=== PATIENT | female | born 1950 | race Caucasian/White ===

== ENCOUNTER → 2017-11-19 13:50 | Outpatient (CLI) | payer MEDICARE, SELFPAY ==
[2017-11-19 17:08] LABS: Thyroid Stimulating Hormone 3.45 uIU/mL (0.47-4.68)
== END ==
PROVIDERS: PCP Physician Assistant; Visit Provider Nurse Practitioner
DX: E03.9 Hypothyroidism, unspecified (principal)
CPT/HCPCS: 36415; 84443

== ENCOUNTER → 2017-11-25 12:30 | Outpatient (CLI) | payer MEDICARE, SELFPAY ==
--- NOTE | 2017-11-25 | DI.MG.S_ITS ---
BILATERAL DIGITAL SCREENING MAMMOGRAM 3D/2D WITH CAD: 11/25/2017 CLINICAL: Routine screening. Comparison is made to exams dated: 10/15/2016 mammogram, 10/05/2015 mammogram, and 09/01/2014 mammogram - [facility]. The tissue of both breasts is extremely dense, which lowers the sensitivity of mammography. Current study was also evaluated with a Computer Aided Detection (CAD) system. No significant masses, calcifications, or other findings are seen in either breast. There has been no significant interval change. IMPRESSION: NEGATIVE There is no mammographic evidence of malignancy. A 1 year screening mammogram is recommended. This exam was interpreted at Station ID: [id number]. NOTE: For mammograms, a report in lay terms will be sent to the patient. Approximately 15% of breast malignancies will not be visualized mammographically. In the management of a palpable breast mass, a negative mammogram must not discourage biopsy of a clinically suspicious lesion. Electronically Signed By: Stephanie aldridge/yaritza:11/25/2017 15:20:14 letter sent: Normal Exam ACR BI-RADS Category 1: Negative 3341F
== END ==
PROVIDERS: PCP Physician Assistant; Visit Provider Physician Assistant
DX: Z12.31 Encounter for screening mammogram for malignant neoplasm of breast (principal)
CPT/HCPCS: 77063; 77067

== ENCOUNTER → 2017-12-26 13:45 | Outpatient (CLI) | payer MEDICARE, SELFPAY ==
[2017-12-26 15:04] LABS: BUN Creatinine Ratio 25.6 (6-22); Blood Urea Nitrogen 23 mg/dL (7-17); Estimated Glomerular Filt Rate > 60.0 mL/min (>60)
== END ==
PROVIDERS: PCP Physician Assistant; Visit Provider Physician Assistant
DX: D31.31 Benign neoplasm of right choroid (principal); Z51.81 Encounter for therapeutic drug level monitoring
CPT/HCPCS: 36415; 82565; 84520

== ENCOUNTER → 2017-12-30 11:58 | Outpatient (CLI) | payer MEDICARE, SELFPAY ==
[2017-12-30 12:14] LABS: BUN Creatinine Ratio 25.6 (6-22); Blood Urea Nitrogen 23 mg/dL (7-17); Estimated Glomerular Filt Rate > 60.0 mL/min (>60)
[2017-12-30 12:23] LABS: Alanine Aminotransferase 28 IU/L (9-52); Albumin 4.2 g/dL (3.5-5.0); Albumin Globulin Ratio 1.3 (1.0-2.8); Alkaline Phosphatase 95 U/L (38-126); Aspartate Aminotransferase 23 IU/L (14-36); Bilirubin Total 0.5 mg/dL (0.2-1.3); Calcium 9.3 mg/dL (8.4-10.2); Carbon Dioxide 30 mmol/L (22-32); Chloride 101 mmol/L (98-107); Globulin 3.3 g/dL (1.7-4.1); Glucose 97 mg/dL (80-110); HEMOLYSIS < 15 (0-50); Potassium 4.3 mmol/L (3.4-5.1); Sodium 144 mmol/L (137-145); Total Protein 7.5 g/dL (6.3-8.2)
== END ==
PROVIDERS: PCP Physician Assistant; Visit Provider Physician Assistant
DX: D31.31 Benign neoplasm of right choroid (principal); Z01.818 Encounter for other preprocedural examination
CPT/HCPCS: 36415; 80053

== ENCOUNTER → 2018-01-02 09:07 | Outpatient (CLI) | payer MEDICARE, SELFPAY ==
--- NOTE | 2018-01-02 09:29 | DI.CT.S_ITS ---
PROCEDURE: CT CHEST ABD PEL W CON INDICATIONS: BENIGN NEOPLASM OF RIGHT CHOROID TECHNIQUE: After the administration of oral and intravenous contrast, 5 mm thick sections acquired from the lung apices to the symphysis. 5 mm coronal and sagittal reformats were performed, with additional 7 mm coronal MIP reformats through the lungs. For radiation dose reduction, the following was used: automated exposure control, adjustment of mA and/or kV according to patient size. COMPARISON: None. FINDINGS: Image quality: Excellent. CHEST: Lungs and pleura: No acute airspace opacities. No pleural effusions or pneumothorax. Central and peripheral airways appear patent and normal in caliber. Mediastinum: Heart size is normal. No pericardial effusion. No mediastinal or hilar adenopathy by size criteria. Thoracic aorta and central pulmonary arteries are normal in size. Esophagus is normal in caliber. No hiatal hernia. Chest wall: No axillary or supraclavicular adenopathy by size criteria. Thyroid gland appears normal where well visualized. ABDOMEN: Solid organs: Liver is normal in size and enhancement. Note is made of a 1.9 cm hypodense structure within the middle third of the right posterior hepatic segment medially, dorsal to the right portal vein, having CT findings suggestive of but not diagnostic of hemangioma as the likely underlying cause Gallbladder appears normal. Biliary system is non dilated. Pancreas enhances normally. Spleen is normal in size and enhancement. No adrenal nodules. Kidneys demonstrate normal size and enhancement, without hydronephrosis. Multiple peripelvic cysts are seen at the left kidney. Peritoneum and bowel: Bowel loops demonstrate normal wall thickness and caliber. No free fluid or air. Nodes and vessels: No retroperitoneal or mesenteric adenopathy by size criteria. Aorta and inferior vena cava are normal in size. Miscellaneous: No ventral hernias. PELVIS: Genitourinary: Bladder wall thickness is normal. Prior hysterectomy. Miscellaneous: No inguinal hernias or adenopathy. Bones: No suspicious bony lesions. No vertebral body compression fractures. IMPRESSION: 1. Through the chest no abnormality is seen. Next 2. Within the abdomen the liver contains a 1.9 cm hypodensity that does not represent a cyst, and by appearance likely represents a hemangioma. Followup targeted single organ ultrasound directed to this area of the right posterior hepatic segment is recommended to determine whether sonographic findings are indicative of hemangioma being present at that site. 3. Multiple peripelvic cysts of the left kidney, mildly distorting the renal hilar structures. Secondary hydronephrosis may be present, superimposed. Renal cortical thinning is not associated. Followup with ultrasound during evaluation of the liver is recommended to establish baseline for followup if necessary. Dictated by: Master Dunn M.D. on 01/02/2018 at 10:09 Approved by: Master Dunn M.D. on 01/02/2018 at 10:16
== END ==
PROVIDERS: PCP Physician Assistant; Visit Provider Physician Assistant
DX: D36.7 Benign neoplasm of other specified sites (principal); N28.1 Cyst of kidney, acquired
CPT/HCPCS: 71260; 74177; Q9967

== ENCOUNTER → 2018-01-07 07:39 | Outpatient (CLI) | payer MEDICARE, SELFPAY ==
--- NOTE | 2018-01-07 07:41 | DI.US.S_ITS ---
PROCEDURE: US ABDOMEN COMPLETE INDICATIONS: LIVER MASS, ABNORMAL LEFT KIDNEY ON CT TECHNIQUE: Real-time scanning was performed of the abdominal and retroperitoneal organs, with image documentation. COMPARISON: [facility], CT, CT CHEST ABD PEL W CON, 01/02/2018, 9:16. FINDINGS: Liver: Liver is normal in size and homogeneous in echotexture except for presence of a 1.6 x 1.1 x 1.5 cm hyperechoic focus within the right posterior hepatic segment, with increased through transmission, consistent with hemangioma as was suspected by CT scanning 01/02/18. Gallbladder: Appears normal. Biliary ducts: Intrahepatic bile ducts are non-dilated. Extrahepatic bile duct caliber measures 5.1 mm. Normal is 6-7 mm or less in diameter, or 10 mm or less post-cholecystectomy. Pancreas: Visualized portions of the pancreas are sonographically normal. Spleen: Spleen is normal in size and homogeneous in echotexture. Kidneys: Kidneys are normal in size and echotexture. Right kidney measures 10.2 cm long; left kidney measures 9.5 cm long. No hydronephrosis on the right or nephrolithiasis on the left but there does appear to be moderate hydronephrosis on the left in addition to several peripelvic cysts. No solid masses. Aorta: Visualized aorta is normal in caliber at less than 3 cm. Iliacs: Proximal common iliac arteries are normal in caliber at less than 2.5 cm. IVC: Intrahepatic inferior vena cava is patent. Miscellaneous: No free abdominal fluid. IMPRESSION: 1.6 cm maximal dimension hemangioma right posterior hepatic segment which correlates with the CT scanning performed 01/02/18. Moderate hydronephrosis on the left, without hydroureter visualized, in addition to peripelvic cysts seen by CT scanning. The peripelvic cysts may explain the hydronephrosis, impinging on the collecting system. Followup ultrasound in 3 months is recommended to assess for interval exchange engineer time. 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 Dictated by: Master Dunn M.D. on 01/07/2018 at 8:39 Approved by: Master Dunn M.D. on 01/07/2018 at 8:45
== END ==
PROVIDERS: PCP Physician Assistant; Visit Provider Physician Assistant
DX: D18.03 Hemangioma of intra-abdominal structures (principal); N13.30 Unspecified hydronephrosis
CPT/HCPCS: 76700

== ENCOUNTER → 2018-03-10 09:17 | Outpatient (CLI) | payer MEDICARE, SELFPAY ==
--- NOTE | 2018-03-10 | DI.NM.S_ITS ---
PROCEDURE: NM RENAL FUNCTION W LASIX RADIOPHARMACEUTICAL: 10.8 mCi Tc-99m MAG3 IV and 40 mg furosemide IV. INDICATIONS: HYDRONEPHROSIS TECHNIQUE: The patient was hydrated orally before the examination was begun. After intravenous administration of Tc-99m MAG3, posterior abdominal radionuclide angiogram and sequential (1 minute each frame) renal images were obtained. A time-activity curve for each kidney was generated and analyzed. To evaluate for obstruction, the patient was given 40 mg furosemide via slow intravenous injection after the start of the examination. Sequential images were obtained for up to an additional 20 minutes. COMPARISON: [facility], CT, CT CHEST ABD PEL W CON, 01/02/2018, 9:16. [facility], US, US ABDOMEN COMPLETE, 01/07/2018, 7:47. FINDINGS: Perfusion: There is normal vascular flow to both kidneys. Morphology: Both kidneys are normal in size and shape. No dilated collecting systems are seen. Left extrarenal pelvis is noted. The ureters and bladder fill with tracer, and appear normal. Function: Both kidneys demonstrate normal cortical tracer uptake, with [id number] activity ranging from 3 to 5 minutes. The right kidney contributes 47 % of total renal function. The left kidney contributes 53 % of total renal function. Lasix stimulation: After diuretic administration, there is prompt clearance of tracer activity from the renal collecting systems in both kidneys. The half-time of emptying of tracer activity from the right pelvicaliceal system is 7.3 minutes. The half-time of emptying from the left pelvicaliceal system is 7.0 minutes. Normal emptying half-times are less than 10 minutes; borderline ranges are from 10 to 20 minutes. IMPRESSION: 1. Normal Lasix renogram. 2. No evidence of hydronephrosis. Dictated by: Elva Angela MD, PhD on 03/10/2018 at 11:00 Approved by: Elva Angela MD, PhD on 03/10/2018 at 11:05
== END ==
PROVIDERS: PCP Physician Assistant; Visit Provider Specialist
DX: N13.30 Unspecified hydronephrosis (principal)
CPT/HCPCS: 78708; A9562

== ENCOUNTER → 2018-12-02 08:10 | Outpatient (CLI) | payer MEDICARE, SELFPAY ==
--- NOTE | 2018-12-02 | DI.MG.S_ITS ---
BILATERAL DIGITAL SCREENING MAMMOGRAM 3D/2D WITH CAD: 12/02/2018 CLINICAL: Routine screening. Comparison is made to exams dated: 11/25/2017 mammogram, 10/15/2016 mammogram, and 10/05/2015 mammogram - [facility]. The tissue of both breasts is extremely dense, which lowers the sensitivity of mammography. Current study was also evaluated with a Computer Aided Detection (CAD) system. No significant masses, calcifications, or other findings are seen in either breast. There has been no significant interval change. IMPRESSION: NEGATIVE There is no mammographic evidence of malignancy. A 1 year screening mammogram is recommended. This exam was interpreted at Station ID: [id number]. NOTE: For mammograms, a report in lay terms will be sent to the patient. Approximately 15% of breast malignancies will not be visualized mammographically. In the management of a palpable breast mass, a negative mammogram must not discourage biopsy of a clinically suspicious lesion. Electronically Signed By: Mariano kirkpatrick/yaritza:12/02/2018 17:11:50 letter sent: Normal Exam ACR BI-RADS Category 1: Negative 3341F
== END ==
PROVIDERS: PCP Physician Assistant; Visit Provider Physician Assistant
DX: Z12.31 Encounter for screening mammogram for malignant neoplasm of breast (principal)
CPT/HCPCS: 77063; 77067

== ENCOUNTER → 2018-12-08 09:52 | Outpatient (CLI) | payer MEDICARE, SELFPAY ==
[2018-12-08 12:10] LABS: Alanine Aminotransferase 11 IU/L (9-52); Albumin 3.9 g/dL (3.5-5.0); Albumin Globulin Ratio 1.4 (1.0-2.8); Alkaline Phosphatase 95 U/L (38-126); Aspartate Aminotransferase 22 IU/L (14-36); BUN Creatinine Ratio 22.2 (6-22); Bilirubin Total 0.6 mg/dL (0.2-1.3); Blood Urea Nitrogen 20 mg/dL (7-17); Calcium 9.1 mg/dL (8.4-10.2); Carbon Dioxide 32 mmol/L (22-32); Chloride 102 mmol/L (98-107); Cholesterol 229 mg/dL (140-199); Estimated Glomerular Filt Rate > 60.0 mL/min (>60); Globulin 2.7 g/dL (1.7-4.1); Glucose 81 mg/dL (80-110); HDL Cholesterol 45 mg/dL (40-60); HEMOLYSIS < 15 (0-50); LDL Cholesterol Calculated 166 mg/dL (<100); Sodium 140 mmol/L (137-145); Total Protein 6.6 g/dL (6.3-8.2); Triglycerides 90 mg/dL (35-150)
[2018-12-08 12:32] LABS: Thyroid Stimulating Hormone 0.86 uIU/mL (0.47-4.68)
== END ==
PROVIDERS: PCP Physician Assistant; Visit Provider Physician Assistant
DX: E03.9 Hypothyroidism, unspecified (principal); E78.5 Hyperlipidemia, unspecified
CPT/HCPCS: 36415; 80053; 80061; 84443

== ENCOUNTER → 2019-01-05 13:30 | Outpatient (CLI) | payer MEDICARE, SELFPAY | PROVIDERS: PCP Physician Assistant; Visit Provider Physician Assistant | DX: M81.0 Age-related osteoporosis without current pathological fracture (principal); Z78.0 Asymptomatic menopausal state; E28.39 Other primary ovarian failure; Z82.62 Family history of osteoporosis; Z90.722 Acquired absence of ovaries, bilateral; Z87.891 Personal history of nicotine dependence | CPT/HCPCS: 77080 ==

== ENCOUNTER → 2019-01-07 09:11 | Outpatient (CLI) | payer MEDICARE, SELFPAY ==
[2019-01-07 10:42] LABS: Thyroid Stimulating Hormone 0.71 uIU/mL (0.47-4.68)
== END ==
PROVIDERS: PCP Physician Assistant; Visit Provider Nurse Practitioner
DX: E03.9 Hypothyroidism, unspecified (principal)
CPT/HCPCS: 36415; 84443

== ENCOUNTER → 2019-01-14 09:56 | Outpatient (CLI) | payer MEDICARE, SELFPAY ==
[2019-01-14 12:04] LABS: Vitamin D 25 Hydroxy (D3) 46.5 ng/mL (30.0-100.0)
== END ==
PROVIDERS: PCP Physician Assistant; Visit Provider Physician Assistant
DX: M54.6 Pain in thoracic spine (principal); M81.0 Age-related osteoporosis without current pathological fracture; R07.81 Pleurodynia
CPT/HCPCS: 36415; 82306

== ENCOUNTER → 2019-01-14 10:03 | Outpatient (CLI) | payer MEDICARE, SELFPAY ==
--- NOTE | 2019-01-14 10:08 | DI.RAD.S_ITS ---
PROCEDURE: XR THORACIC SPINE 3V INDICATIONS: Thoracic pain below bra line after deep stretching since Apr TECHNIQUE: 3 views of the thoracic spine were acquired. COMPARISON: [facility], CT, CT CHEST ABD PEL W CON, 01/02/2018, 9:16. FINDINGS: Bones: Mild mid thoracic compression fracture, possibly at the T9 level, although the exact spinal level is unclear. This is new since 12/03/17 although no more recent comparison studies Soft tissues: No paravertebral stripe thickening. IMPRESSION: Mild T9 compression fracture, new since 12/03/17 although no more recent relevant comparison studies therefore technically age-indeterminate. Please correlate clinically. If clinically warranted, further evaluation with MRI thoracic spine to assess for marrow edema could be performed. Dictated by: Cyril Chavez M.D. on 01/14/2019 at 12:56 Approved by: Cyril Chavez M.D. on 01/14/2019 at 12:59
--- NOTE | 2019-01-14 10:08 | DI.RAD.S_ITS ---
PROCEDURE: XR RIBS LT MIN 3V W CXR1V INDICATIONS: Thoracic pain below bra line after deep stretching since Apr TECHNIQUE: 2 views of the left ribs were acquired, along with a single view chest. COMPARISON: None. FINDINGS: Surgical changes and devices: None. Bones and chest wall: No fractures or dislocations. No suspicious bony lesions. Overlying soft tissues appear unremarkable. Lungs and pleura: No pleural effusions or pneumothorax. Lungs appear clear. Mediastinum: Mediastinal contours appear normal. Heart size is normal. IMPRESSION: No rib fracture. No acute disease. Dictated by: Cyril Chavez M.D. on 01/14/2019 at 12:55 Approved by: Cyril Chavez M.D. on 01/14/2019 at 12:56
== END ==
PROVIDERS: PCP Physician Assistant; Visit Provider Physician Assistant
DX: M54.6 Pain in thoracic spine (principal); M48.54XA Collapsed vertebra, not elsewhere classified, thoracic region, initial encounter for fracture; R07.81 Pleurodynia; M81.0 Age-related osteoporosis without current pathological fracture
CPT/HCPCS: 36415; 71101; 72072; 82306

== ENCOUNTER → 2019-01-15 06:42 | Outpatient (CLI) | payer MEDICARE, SELFPAY ==
--- NOTE | 2019-01-15 06:44 | DI.MRI.S_ITS ---
PROCEDURE: MR THORACIC SPINE WO CON INDICATIONS: Compression fx T9; Osteoporosis; pain not improving TECHNIQUE: Noncontrast sagittal T1 spine echo and T2 fast spin echo, sagittal STIR, axial T1 and T2 fast spin echo through the thoracic spine. COMPARISON: [facility], CT, CT CHEST ABD PEL W CON, 01/02/2018, 9:16. [facility], CR, XR THORACIC SPINE 3V, 01/14/2019, 10:18. FINDINGS: Image quality: Excellent. Alignment and Curvature: Mild dextroconvex scoliotic curvature is seen. Bone Marrow: Marrow is of normal overall signal. There is a subacute fracture seen involving the superior endplate of the T8 level (previously described at T9) with an associated Schmorl's node and 35% loss of height centrally. Mild increased T2-weighted/STIR signal can be seen at the superior aspect of this vertebral body level. No posterior displacement of fracture fragments can be seen. No additional fractures are seen. Spinal Cord: Visualized spinal cord is normal in size and signal. Paraspinous Soft Tissues: No paravertebral masses. Several perineural cysts (Tarlov's cysts) can be seen involving the exit foramina. Prominent left renal cysts are noted. Miscellaneous: On axial images, central canal and foramina appear widely patent at all scanned levels. IMPRESSION: 35% subacute compression deformity involving the superior endplate of T8 (previously described as T9). Incidental note is made of: Accentuated thoracic kyphosis Prominent left renal cysts Dictated by: Chandana Ugalde M.D. on 01/15/2019 at 10:18 Approved by: Chandana Ugalde M.D. on 01/15/2019 at 10:24
== END ==
PROVIDERS: PCP Physician Assistant; Visit Provider Physician Assistant
DX: M48.54XA Collapsed vertebra, not elsewhere classified, thoracic region, initial encounter for fracture (principal); M54.6 Pain in thoracic spine; M81.0 Age-related osteoporosis without current pathological fracture
CPT/HCPCS: 72146

== ENCOUNTER → 2019-03-24 09:17 | Outpatient (CLI) | payer MEDICARE, SELFPAY ==
[2019-03-28 02:49] LABS: Albumin 100 %; Protein/ Creatinine Ratio 98 mg/g creat (21-161); Total Urine Protein 17 mg/dL (5-24); Urine Creatinine, Random 173 mg/dL (20-275)
[2019-03-31 14:25] LABS: N-Telopeptide Serum 21.4 nM BCE (6.2-19.0)
[2019-04-05 20:51] LABS: Albumin 3.8 g/dL (3.8-4.8); Alpha 1 Globulin 0.2 g/dL (0.2-0.3); Alpha 2 Globulin 0.6 g/dL (0.5-0.9); Beta 1 Globulin 0.4 g/dL (0.4-0.6); Gamma Globulin 0.9 g/dL (0.8-1.7); Protein, Total 6.2 g/dL (6.1-8.1)
== END ==
PROVIDERS: PCP Physician Assistant; Visit Provider Internal Medicine Endocrinology, Diabetes & Metabolism
DX: M81.0 Age-related osteoporosis without current pathological fracture (principal)
CPT/HCPCS: 36415; 82523; 84155; 84156; 84165; 84166

== ENCOUNTER → 2019-05-07 09:29 | Outpatient (CLI) | payer MEDICARE, SELFPAY ==
[2019-05-07 10:34] LABS: Alanine Aminotransferase 14 IU/L (<35); Albumin 4.4 g/dL (3.5-5.0); Albumin Globulin Ratio 1.6 (1.0-2.8); Alkaline Phosphatase 96 U/L (38-126); Aspartate Aminotransferase 23 IU/L (14-36); BUN Creatinine Ratio 33.3 (6-22); Bilirubin Total 0.4 mg/dL (0.2-1.3); Blood Urea Nitrogen 30 mg/dL (7-17); Calcium 9.5 mg/dL (8.4-10.2); Carbon Dioxide 31 mmol/L (22-32); Chloride 103 mmol/L (98-107); Cholesterol 243 mg/dL (140-199); Estimated Glomerular Filt Rate > 60.0 mL/min (>60); Globulin 2.8 g/dL (1.7-4.1); Glucose 89 mg/dL (80-110); HDL Cholesterol 54 mg/dL (40-60); HEMOLYSIS < 15 (0-50); LDL Cholesterol Calculated 167 mg/dL (<100); Potassium 4.1 mmol/L (3.4-5.1); Sodium 140 mmol/L (137-145); Total Protein 7.2 g/dL (6.3-8.2); Triglycerides 110 mg/dL (35-150)
[2019-05-07 10:46] LABS: Vitamin D 25 Hydroxy (D3) 44.9 ng/mL (30.0-100.0)
[2019-05-11 16:40] LABS: Thyroid Peroxidase Antibodies 48 IU/mL (< 9)
== END ==
PROVIDERS: PCP Physician Assistant; Visit Provider Physician Assistant
DX: E78.5 Hyperlipidemia, unspecified (principal); E03.9 Hypothyroidism, unspecified; M81.0 Age-related osteoporosis without current pathological fracture
CPT/HCPCS: 36415; 80053; 80061; 82306; 84439; 84443; 84481; 86376

== ENCOUNTER → 2019-07-01 07:57 | Outpatient (CLI) | payer MEDICARE, SELFPAY ==
[2019-07-01 08:51] LABS: Alanine Aminotransferase 16 IU/L (<35); Albumin 4.3 g/dL (3.5-5.0); Albumin Globulin Ratio 1.5 (1.0-2.8); Alkaline Phosphatase 119 U/L (38-126); Aspartate Aminotransferase 32 IU/L (14-36); Bilirubin Total 0.5 mg/dL (0.2-1.3); Blood Urea Nitrogen 13 mg/dL (7-17); Calcium 9.3 mg/dL (8.4-10.2); Carbon Dioxide 26 mmol/L (22-32); Chloride 107 mmol/L (98-107); Cholesterol 254 mg/dL (140-199); Estimated Glomerular Filt Rate 54.7 mL/min (>60); Globulin 2.9 g/dL (1.7-4.1); Glucose 106 mg/dL (80-110); HDL Cholesterol 46 mg/dL (40-60); HEMOLYSIS < 15 (0-50); LDL Cholesterol Calculated 174 mg/dL (<100); Potassium 3.8 mmol/L (3.4-5.1); Sodium 139 mmol/L (137-145); Total Protein 7.2 g/dL (6.3-8.2); Triglycerides 170 mg/dL (35-150)
[2019-07-01 09:11] LABS: Free T4, Direct Thyroxine 1.55 ng/dL (0.78-2.19)
[2019-07-01 09:25] LABS: Thyroid Stimulating Hormone 5.57 uIU/mL (0.47-4.68)
[2019-07-03 15:53] LABS: Calcium 9.3 mg/dL (8.6-10.4); Parathyroid Hormone, Intact 69 pg/mL (14-64)
== END ==
PROVIDERS: PCP Physician Assistant; Visit Provider Physician Assistant
DX: E03.9 Hypothyroidism, unspecified (principal); E78.00 Pure hypercholesterolemia, unspecified; R79.89 Other specified abnormal findings of blood chemistry; R79.9 Abnormal finding of blood chemistry, unspecified; Z51.81 Encounter for therapeutic drug level monitoring; M48.54XA Collapsed vertebra, not elsewhere classified, thoracic region, initial encounter for fracture; M81.0 Age-related osteoporosis without current pathological fracture
CPT/HCPCS: 36415; 80053; 80061; 82310; 83970; 84439; 84443; 84481

== ENCOUNTER → 2019-07-21 14:40 | Outpatient (CLI) | payer MEDICARE, SELFPAY ==
--- NOTE | 2019-07-21 14:42 | DI.US.S_ITS ---
PROCEDURE: US ABDOMEN COMPLETE INDICATIONS: LUQ PAIN, BLOATING TECHNIQUE: Real-time scanning was performed of the abdominal and retroperitoneal organs, with image documentation. COMPARISON: [facility], US, US ABDOMEN COMPLETE, 01/07/2018, 7:47. FINDINGS: Liver: Liver is normal in size and homogeneous in echotexture except for presence of a hyperechoic right posterior hepatic segment hemangioma previously also seen by CT scanning in 2018. This measures up to 1.7 cm.. Gallbladder: The gallbladder appears normal Biliary ducts: Intrahepatic bile ducts are non-dilated. Extrahepatic bile duct caliber measures 4.8 mm. Normal is 6-7 mm or less in diameter, or 10 mm or less post-cholecystectomy. Pancreas: Visualized portions of the pancreas are sonographically normal. Spleen: Spleen is normal in size and homogeneous in echotexture. Kidneys: Kidneys are normal in size and echotexture. Right kidney measures 9.6 cm long; left kidney measures 9.2 cm long. No right-sided hydronephrosis or nephrolithiasis bilaterally, and there is moderate left-sided hydronephrosis that persists with bladder emptying.. No solid masses. Aorta: Visualized aorta is normal in caliber at less than 3 cm. Iliacs: Proximal common iliac arteries are normal in caliber at less than 2.5 cm. IVC: Intrahepatic inferior vena cava is patent. Miscellaneous: No free abdominal fluid. IMPRESSION: 1. Moderate hydronephrosis left kidney, chronically present. Left-sided renal cortical atrophy has not developed. 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 2. Previously present right posterior hepatic segment hemangioma again noted. Note: Urology consultation may be warranted given the history of a left-sided pain syndrome and the finding of chronic hydronephrosis on the left. Dictated by: Master Dunn M.D. on 07/21/2019 at 16:06 Approved by: Master Dunn M.D. on 07/21/2019 at 16:11
== END ==
PROVIDERS: PCP Physician Assistant; Visit Provider Physician Assistant
DX: R10.12 Left upper quadrant pain (principal); N13.30 Unspecified hydronephrosis; D18.09 Hemangioma of other sites; R14.0 Abdominal distension (gaseous); R68.81 Early satiety; R11.0 Nausea; R10.31 Right lower quadrant pain
CPT/HCPCS: 76700

== ENCOUNTER → 2019-07-29 07:58 | Outpatient (CLI) | payer MEDICARE, SELFPAY ==
--- NOTE | 2019-07-29 08:00 | DI.ECHO.S_ITS ---
[facility]---------+ [facility] +---------+ : : [address] : : : : [id number] : : : : Phone: [phone] Echocardiogram Report + + :Name: CHICO DELONG Study Date: 07/29/2019 Height: 66 in : :[facility] Weight: 160 lb : : Gender: Female BSA: 1.8 m2 : :: 1950 Age: 69 yrs BP: 114/76 mmHg: :Reason For Study: Dyspnea : :Ordering Physician: HALIE Mejias : :[place] Performed By: Artemio Wade : :Referring: CARLEY OROZCO : + + Interpretation Summary Normal sinus rhythm. Normal LV size, wall thickness, wall motion and LV systolic function. EF is 55-60%. There is mild left atrial enlargement. Otherwise patient has normal chamber sizes. 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 Mitral valve leaflets are normal with trace associated regurgitation. Aortic valve leaflets are mildly sclerotic with mild associated aortic regurgitation. No prior study available for comparison. Procedure: A two-dimensional transthoracic echocardiogram with color flow and Doppler was performed. The study quality was technically adequate. There is no prior echocardiogram noted for this patient. The patient was in normal sinus rhythm during the exam. Left Ventricle: The left ventricle is normal in size. There is normal left ventricular wall thickness. Left ventricular systolic function is normal. The ejection fraction is estimated to be 55-60%. Left ventricular wall motion is normal. Diastolic parameters suggest a relaxation abnormality of the left ventricle, consistent with probable normal filling pressures. Right Ventricle: The right ventricle is normal in size and function. Atria: The left atrium is mildly dilated. Right atrial size is normal. The interatrial septum is intact with no evidence for an atrial septal defect. Mitral Valve: The mitral valve is normal in structure and function. There is mild mitral regurgitation. Aortic Valve: The aortic valve is not well visualized. The aortic valve opens well. There is mild aortic regurgitation. Tricuspid Valve: The tricuspid valve is normal in structure and function. There is trace tricuspid regurgitation. The right ventricular systolic pressure is estimated to be at least 24 mmHg based on an estimated right atrial pressure of 3 mm Hg. Pulmonic Valve: The pulmonic valve is not well visualized. Great Vessels: The aortic root is normal size. The dimensions of the ascending aorta are normal. The pulmonary artery is normal size. The IVC is of normal diameter and collapses greater than 50% with a sniff. This suggests a low right atrial pressure of 3 mm Hg. Pericardium/ Pleura There is no pericardial effusion. There is no pleural effusion. MMode/2D Measurements & Calculations LVIDd: 4.5 cm LVOT diam: 1.8 cm LVIDs: 3.0 cm Ao root diam: 3.1 cm FS: 32.4 % Ao Arch Diam (Prox Trans): 2.8 cm EPSS: 0.45 cm IVSd: 1.1 cm LVPWd: 0.91 cm LV doan. diameter/BSA (cm/m^2): 2.5 LV sys. diameter/BSA (cm/m^2): 1.7 LA A2 area: 22.1 cm2 RA long axis: 4.1 cm LA A4 area: 16.0 cm2 RA area: 11.8 cm2 LA length (vol): 4.7 cm RA vol: 29.2 ml LA vol: 64.2 ml RA : 16.1 ml/m2 LA vol index: 35.3 ml/m2 TAPSE: 2.2 cm Doppler Measurements & Calculations Ao V2 max: 123.4 cm/sec LVOT Max Cheikh: 111.0 cm/sec Ao V2 mean: 81.6 cm/sec LV V1 max P.9 mmHg Ao max P.1 mmHg LV V1 VTI: 26.9 cm Ao mean P.1 mmHg SHAWN(I,D): 2.5 cm2 Ao V2 VTI: 26.7 cm SHAWN(V,D): 2.2 cm2 sev ratio: 1.0 SHAWN indexed to BSA (cm^2/m^2): 1.4 AI P1/2t: 426.3 msec AI dec slope: 194.4 cm/sec2 MV E max cheikh: 56.7 cm/sec TR max cheikh: 230.2 cm/sec MV A max cheikh: 84.0 cm/sec TR max P.2 mmHg MV E/A: 0.68 Med Peak E' Cheikh: 7.4 cm/sec E/E' med: 7.6 Lat Peak E' Cheikh: 9.7 cm/sec E/E' lat: 5.8 E/e' average: 6.7 MV dec time: 0.16 sec SV(LVOT): 66.4 ml Electronically signed by: Cintia Ovalles M.D. on Reading Physician:07/29/2019 10:51 AM
== END ==
PROVIDERS: PCP Physician Assistant; Visit Provider Physician Assistant
DX: R06.00 Dyspnea, unspecified (principal); R53.83 Other fatigue; I08.0 Rheumatic disorders of both mitral and aortic valves; R35.0 Frequency of micturition; R68.83 Chills (without fever)
CPT/HCPCS: 81001; 87086; 93306

== ENCOUNTER → 2019-07-29 08:37 | Outpatient (CLI) | payer MEDICARE, SELFPAY ==
[2019-07-29 08:40] LABS: RBC Urine None Seen (0-5/HPF)
[2019-07-29 09:37] LABS: Appearance Urine UA CLEAR; Bilirubin Urine UA NEGATIVE (NEGATIVE); Color Urine UA YELLOW; Glucose Urine UA NEGATIVE (Negative); Ketones Urine UA NEGATIVE (NEGATIVE); Leukocyte Esterase Urine UA TRACE (NEGATIVE); Nitrite Urine UA NEGATIVE (Negative); Occult Blood Urine UA NEGATIVE (Negative); Protein Urine UA NEGATIVE (Negative); Specific Gravity Urine UA 1.015 (1.000-1.035); Urobilinogen Urine UA 0.2 E.U./dL (0.2)
[2019-07-29 09:50] LABS: Bacteria Urine Occasional (0-1); Culture Indicated Urine Specimen Cultured; Squamous Epithelial Cell Urine 0-1 /HPF (0-5/HPF); WBC Urine 0-1/HPF (0-5/HPF)
== END ==
PROVIDERS: PCP Physician Assistant; Visit Provider Physician Assistant
DX: R35.0 Frequency of micturition (principal); R68.83 Chills (without fever)
CPT/HCPCS: 81001; 87086

== ENCOUNTER → 2019-08-02 08:33 | Outpatient (CLI) | payer MEDICARE, SELFPAY ==
--- NOTE | 2019-08-02 08:34 | DI.NM.S_ITS ---
PROCEDURE: NM HIDA WITH CCK PHARMACEUTICAL: 5.30 mCi Tc-99m mebrofenin IV; 1.4 mcg CCK IV. INDICATIONS: RUQ pain, nausea, bloating worse after fatty meal TECHNIQUE: Following intravenous administration of Tc-99m mebrofenin, sequential anterior abdominal images were obtained. To evaluate the contractile response of the gallbladder in response to Cholecystokinin (CCK), sincalide (0.02 ?g/kg) was administered by slow intravenous infusion approximately 60 minutes after the administration of the radiopharmaceutical. Sequential imaging was continued for 30 minutes after the start of CCK infusion. Gallbladder ejection fraction was calculated. COMPARISON: None. FINDINGS: Biliary scan: There is normal tracer uptake and excretion by the liver. There is normal visualization of the intrahepatic ducts, common bile duct, and gallbladder. There is normal tracer transit into the duodenum. CCK stimulation: There is normal contractile response of the gallbladder to CCK infusion. The calculated gallbladder ejection fraction is 78%; normal values are above 35%. It has been shown that any patient abdominal pain after CCK administration is related to the rate of CCK injection, rather than to any underlying gallbladder disease (Clinical Nuclear Medicine 2012; 37: 63-70. Journal of Nuclear Medicine 2014; 55: 1-9). IMPRESSION: Normal examination without scintigraphic evidence of cholecystitis. Dictated by: Elva Angela MD, PhD on 08/02/2019 at 12:18 Approved by: Elva Angela MD, PhD on 08/02/2019 at 12:20
== END ==
PROVIDERS: PCP Physician Assistant; Referring Provider Physician Assistant; Visit Provider Physician Assistant
DX: R10.11 Right upper quadrant pain (principal); R11.0 Nausea; R14.0 Abdominal distension (gaseous)
CPT/HCPCS: 78227; A9537; J2805

== ENCOUNTER → 2019-08-10 14:51 | Outpatient (CLI) | payer MEDICARE, SELFPAY ==
[2019-08-20 22:29] LABS: Calprotectin, Stool 63.4 mcg/g
== END ==
PROVIDERS: PCP Family Medicine; Referring Provider Specialist; Visit Provider Specialist
DX: R11.0 Nausea (principal); R10.13 Epigastric pain; K52.9 Noninfective gastroenteritis and colitis, unspecified
CPT/HCPCS: 83993; 86677

== ENCOUNTER → 2019-08-12 12:44 | Outpatient (CLI) | payer MEDICARE, SELFPAY ==
[2019-08-12 13:02] LABS: Occult Blood 1 Negative (Negative); Occult Blood 2 Negative (Negative); Occult Blood 3 Negative (Negative)
== END ==
PROVIDERS: PCP Family Medicine; Referring Provider Specialist; Visit Provider Specialist
DX: K52.9 Noninfective gastroenteritis and colitis, unspecified (principal); R11.0 Nausea; R10.13 Epigastric pain
CPT/HCPCS: 82270

== ENCOUNTER → 2019-09-09 09:05 | Outpatient (CLI) | payer MEDICARE, SELFPAY ==
[2019-09-09 10:51] LABS: Free T4, Direct Thyroxine 2.26 ng/dL (0.78-2.19)
[2019-09-09 11:05] LABS: Thyroid Stimulating Hormone 0.03 uIU/mL (0.47-4.68)
[2019-09-10 12:34] LABS: Anti Thyroglobulin Antibody <1.0 IU/mL (0.0-0.9); Thyroid Peroxidase Antibodies 69 IU/mL (0-34)
[2019-09-17 15:13] LABS: Triiodothyronine T3 Reverse 34.5 ng/dL (9.2-24.1)
== END ==
PROVIDERS: Physician Assistant; PCP Family Medicine; Referring Provider Family Medicine; Visit Provider Family Medicine
DX: E03.9 Hypothyroidism, unspecified (principal); R79.89 Other specified abnormal findings of blood chemistry; R53.83 Other fatigue
CPT/HCPCS: 36415; 84439; 84443; 84481; 84482; 86376; 86800

== ENCOUNTER 2019-09-21 19:42 | Emergency (ER) | payer MEDICARE, SELFPAY ==
--- NOTE | 2019-09-21 19:48 | ED_ITS ---
HPI - Fever General Chief Complaint: Chest Pain Stated Complaint: Fever/Congestion/Cough/Chest Pain/Light Headed Time Seen by Provider: 09/21/19 19:48 Source: patient and family Mode of arrival: Ambulatory Limitations: no limitations History of Present Illness HPI Narrative: This is a 69-year-old female comes to the emergency department with complaint of cough, chest pain for 4 weeks. Patient states the 1st week she did have some sweats at night but no documented fevers. She states she had a productive cough that was knee on a yellow which has no longer productive but she still has a dry cough. She has had a chest discomfort with cough. She states she does feel little short of breath but it has not been worsening in any form. She is not currently having any nausea or vomiting. She did have some loose stools initially but no longer and no constipation. No urinary symptoms. No swelling in her extremities. She states she takes medication for hypothyroid. Patient states she does have allergies to narcotics. No tobacco, no alcohol or illicit. She states that she came in today because people around her have been concerned although she is not feeling any worse. She states she did see her doctor about 3 days into her illness but has not followed up with them since then. Related Data Home Medications Medication Instructions Recorded Confirmed cyanocobalamin (vitamin B-12) 5,000 mcg SUBLINGUAL QDAY #0 09/04/16 09/03/19 [Vitamin B-12] vitamins A,C,N-evdf-nfkxiw 1 cap PO QDAY #0 09/04/16 09/03/19 [PreserVision AREDS] cholecalciferol (vitamin D3) 25 3,000 unit PO DAILY cap 12/14/18 09/03/19 mcg (1,000 unit) capsule vitamin E 400 unit capsule 800 unit PO DAILY 12/14/18 09/03/19 ascorbate calcium (vitamin C) 500 1,300 mg PO DAILY tab 08/29/19 09/03/19 mg tablet boron 6 mg tablet 15 mg PO tab 08/29/19 09/03/19 magnesium citrate 125 mg capsule 250 mg PO DAILY 08/29/19 09/03/19 potassium chloride PO 08/29/19 09/03/19 vitamin K2 40 mcg tablet See Rx Instructions PO DAILY tab 08/29/19 09/03/19 zinc acetate PO 08/29/19 09/03/19 Previous Rx's Medication Instructions Recorded pneumoc 13-nela conj-dip cr(PF) 0.5 0.5 ml IM ONCE #0.5 ml 12/14/18 mL IM syringe varicella-zoster [id number] (PF) 50 50 mcg IM ONCE #1 each 12/14/18 mcg/0.5 mL IM susp, kit Synthroid 150 mcg tablet 150 mcg PO DAILY #45 tab NS 07/19/19 benzonatate 100 mg capsule 100 mg PO BID-TID PRN #20 cap 08/29/19 calcitonin (salmon) 200 1 spray INTRANASAL (ALT) DAILY 09/03/19 unit/actuation nasal spray #3.7 ml Allergies Allergy/AdvReac Type Severity Reaction Status Date / Time Penicillins [PENICILLINS] Allergy Unknown UNKNOWN - Verified 09/03/19 15:12 PATIENT WAS A CHILD WHEN IT HAPPENED acetaminophen [ACETAMINOPHEN] AdvReac Severe (PERCOCET) Verified 09/03/19 15:12 VOMITING ibuprofen [IBUPROFEN] AdvReac Severe SWELLING, Verified 09/03/19 15:12 ITCHING AND DISCHARGE FROM EYES morphine [MORPHINE] AdvReac Severe HIVES Verified 09/03/19 15:12 oxycodone [OXYCODONE] AdvReac Severe (PERCOCET) Verified 09/03/19 15:12 VOMITING meperidine [MEPERIDINE] AdvReac Intermediate (DEMEROL) Verified 09/03/19 15:12 HIVES hydrocodone [HYDROCODONE] AdvReac Mild (VICODIN) Verified 09/03/19 15:12 NAUSEA Review of Systems Review of Systems ROS Unobtainable: All systems reviewed & are unremarkable except as noted in HPI and below Patient History Medical History Cataracts, bilateral (Chronic) Chicken pox (Resolved) Choroidal nevus of right eye (Chronic) Endometriosis (Resolved) Fibroids (Resolved) Hyperlipidemia (Chronic) Hypothyroidism (Chronic) Malaria (Resolved ~2007) Measles (Resolved) Melanoma (Acute) Migraines (Chronic) Mumps (Resolved) Nevus (Chronic ~2012) Osteopenia (Chronic ~2019) Osteoporosis (Chronic ~2019) Sinusitis (Inactive) Vision disorder (Chronic) Surgical History Anesthesia (Resolved) History of hysterectomy for benign disease (Acute ~1995) History of toe surgery (Acute ~2012) History of tonsillectomy (Acute ~1956) Family History (Updated 09/15/19 @ 21:00 by Tiffany Lunsford) Father Leukemia Mother History of heart disease Hypertension Brother History of heart disease Hyperlipidemia Hypertension Grandfather Cancer Grandmother Pneumonia Social History Smoking Status: Former smoker Tobacco: How many years used: 7 second hand exposure: Yes (in the past when everyone smoked at their desk.) alcohol intake: former (I quit in 1975.) substance use type: does not use Smoking Status: Former smoker (I quit in 1975) Exam Narrative Exam Narrative: GEN: well nourished, well appearing female, alert and oriented x 3, patient appears to be in mild distress. HEENT: Atraumatic, pupils are equal round reactive to light, extraocular movements are intact, nares are clear. HEART: Regular rate and rhythm without murmur, clicks, rubs. LUNGS:Lungs clear to auscultation, no wheezes, rales, crackles, chest moves symmetrically, no tachypnea accessory muscle use ABD:bowel sounds normal, soft, non-tender, no guarding, rebound, rigidity, no masses noted, no hepatosplenomegaly :No CVA tenderness MSCL: Non-tender, no muscle atrophy, muscles strength 5/5 upper and lower extremities, full range of motion, normal gait NEURO:CN 2-12 intact, sensation normal SKIN: Rash, no erythema or skin changes. Initial Vital Signs Initial Vital Signs: Vital Signs Temperature 98.6 F 09/21/19 19:49 Pulse Rate 65 09/21/19 19:49 Respiratory Rate 15 09/21/19 19:49 Blood Pressure 160/71 H 09/21/19 19:49 Pulse Oximetry 99 09/21/19 19:49 Course Orders Ordered: ED Orders 09/21/19 19:57 XR chest 2V Stat EKG-12 Lead Stat 09/21/19 20:22 Complete Blood Count AUTO DIFF Stat Comprehensive Metabolic Panel Stat Lipase Stat Procalcitonin Stat Troponin & CK Cardiac Panel Stat Vital Signs Vital signs: Vital Signs - 8 hr 09/21/19 19:49 09/21/19 21:10 09/21/19 21:30 Temperature 98.6 F Pulse Rate 65 59 L 59 L Respiratory Rate 15 Blood Pressure 160/71 H Blood Pressure [Left Arm] 128/61 115/59 L Pulse Oximetry 99 99 99 09/21/19 22:13 Temperature Pulse Rate 63 Respiratory Rate 15 Blood Pressure 112/61 Blood Pressure [Left Arm] Pulse Oximetry 97 MDM - Fever Lab Data Attestation: I reviewed the patient's lab results. Result diagrams: 09/21/19 20:22 09/21/19 20:22 Labs: Lab Results 09/21/19 09/21/19 09/21/19 Range/Units 20:22 20:22 20:22 WBC 5.1 (4.5-11.0) X10^3/uL RBC 4.39 (4.0-5.2) X10^6/uL Hgb 13.3 (12.0-16.0) g/dL Hct 40.0 (36-46) % MCV 91.2 (80-100) fL MCH 30.4 (26-34) PG MCHC 33.3 (30-36) % RDW 13.6 (11.6-14.8) % Plt Count 187 (150-400) X10^3/uL Neut % (Auto) 50.3 (50-75) % Lymph % (Auto) 36.3 (25-40) % Gosper % (Auto) 10.5 (3-14) % Eos % (Auto) 1.7 L (2-4) % Baso % (Auto) 1.2 (0-2) % Neut # (Auto) 2600 (2504-6379) /uL Lymph # (Auto) 1800 (7674-2668) /uL Gosper # (Auto) 500 (0-900) /uL Eos # (Auto) 100 (0-450) /uL Baso # (Auto) 100 (0-100) /uL Sodium 138 (137-145) mmol/L Potassium 4.4 (3.4-5.1) mmol/L Chloride 107 (98-107) mmol/L Carbon Dioxide 26 (22-32) mmol/L BUN 23 H (7-17) mg/dL Creatinine 0.86 (0.52-1.04) mg/dL Estimated GFR > 60.0 (>60) mL/min BUN/Creatinine Ratio 26.7 H (6-22) Glucose 94 (80-110) mg/dL Calcium 9.2 (8.4-10.2) mg/dL Total Bilirubin 0.3 (0.2-1.3) mg/dL AST 25 (14-36) IU/L ALT 14 (<35) IU/L Alkaline Phosphatase 95 (38-126) U/L Total Creatine Kinase 40 (30-135) U/L CK-MB (CK-2) TNP CK-MB (CK-2) Rel Index TNP Troponin I < 0.012 (0.01-0.034) ng/mL Total Protein 6.6 (6.3-8.2) g/dL Albumin 3.7 (3.5-5.0) g/dL Globulin 2.9 (1.7-4.1) g/dL Albumin/Globulin Ratio 1.3 (1.0-2.8) Lipase (23-300) U/L Procalcitonin (<0.5) ng/mL 09/21/19 09/21/19 Range/Units 20:22 20:22 WBC (4.5-11.0) X10^3/uL RBC (4.0-5.2) X10^6/uL Hgb (12.0-16.0) g/dL Hct (36-46) % MCV (80-100) fL MCH (26-34) PG MCHC (30-36) % RDW (11.6-14.8) % Plt Count (150-400) X10^3/uL Neut % (Auto) (50-75) % Lymph % (Auto) (25-40) % Gosper % (Auto) (3-14) % Eos % (Auto) (2-4) % Baso % (Auto) (0-2) % Neut # (Auto) (3354-2121) /uL Lymph # (Auto) (4480-1250) /uL Gosper # (Auto) (0-900) /uL Eos # (Auto) (0-450) /uL Baso # (Auto) (0-100) /uL Sodium (137-145) mmol/L Potassium (3.4-5.1) mmol/L Chloride (98-107) mmol/L Carbon Dioxide (22-32) mmol/L BUN (7-17) mg/dL Creatinine (0.52-1.04) mg/dL Estimated GFR (>60) mL/min BUN/Creatinine Ratio (6-22) Glucose (80-110) mg/dL Calcium (8.4-10.2) mg/dL Total Bilirubin (0.2-1.3) mg/dL AST (14-36) IU/L ALT (<35) IU/L Alkaline Phosphatase (38-126) U/L Total Creatine Kinase (30-135) U/L CK-MB (CK-2) CK-MB (CK-2) Rel Index Troponin I (0.01-0.034) ng/mL Total Protein (6.3-8.2) g/dL Albumin (3.5-5.0) g/dL Globulin (1.7-4.1) g/dL Albumin/Globulin Ratio (1.0-2.8) Lipase 82 (23-300) U/L Procalcitonin < 0.05 (<0.5) ng/mL Imaging Data Chest x-ray: Radiologist's Impression: [place] [address] XRay Report Signed Patient: Olga Lidia Dejesus [facility]#: [id number] : 8Acct:[id number] Age/Sex: 69 / FDate of Service: 09/21/19 Loc: ED Accession Number: [id number] Procedure: XR chest 2V Ordering Provider: Alana Hart D.O. PROCEDURE: XR CHEST 2V INDICATIONS: shortness of breath TECHNIQUE: 2 views of the chest were acquired. COMPARISON: [facility], [place], XR RIBS LT MIN 3V W CXR1V, 01/14/2019, 10:13. FINDINGS: Surgical changes and devices: None. Lungs and pleura: There is mild interstitial prominence which appears chronic. No acute consolidation. No pleural effusions or pneumothorax. Mediastinum: Mediastinal contours are normal. Heart size is normal. Bones and chest wall: No suspicious bony abnormalities. Soft tissues appear unremarkable. IMPRESSION: 1. No acute cardiopulmonary disease. 2. Mild chronic interstitial prominence. Dictated by: Mariano Fernandes M.D. on 09/21/2019 at 20:19 Approved by: Mariano Fernandes M.D. on 09/21/2019 at 20:20 ECG Data Attestation: I personally reviewed and interpreted this ECG as follows: Prior ECG tracings: not available for review Interpretation: Sinus rhythm nonspecific T-wave change patient has some inversion in lead 3 but no depression noted. No elevation. Patient does not have a prior EKG for comparison. Rate of 64, OH 162, QRS 86 and QTC of 414. MDM Narrative Medical decision making narrative: This is a 69-year-old lady who comes in with complaint of 4 weeks of symptoms which have been improving over time and have now stabilized but not resolved. Patient states she has not had any worsening in the last week. Chest x-ray shows some mild chronic interstitial prominence. He has seen a pill count normal white count with normal lymphocytes. New BUN is 23 with a regular GFR and regular LFTs. EKG shows nonspecific change the patient's symptoms are not highly suspicious for ACS and she has had 4 weeks of symptoms so my suspicion for an acute cardiac event is low. Troponin is negative. Procalcitonin is negative. Discussed with patient the possibliity of coronavirus although patient is not w orsening. She does not have classic lab findings and CXR is negative at this time. Discussed with patient there certainly potential or potential for her to be infected in later date. She feels comfortable returning home and not doing additional testing at this time. Patient and I discussed return precautions. She defers anything for cough. We did discuss that if she is concerned and just having fever or not significantly worsening symptoms she can try the respiratory clinic for gerber virus testing, if she is having worsening symptoms or feel she has a more emergent condition she should certainly return to the ER. Discharge Plan Departure Patient Disposition: Home Clinical Impression: Cough Discharge Date/Time: 09/21/19 22:20 Instructions: Cough Activity Restrictions/Additional Instructions: Follow-up with your physician in the next week for recheck. If you feel you need testing for coronavirus 19 the [facility] has a respiratory clinic at : [address] [place] [address], [place] [address] HOURS Every day, 8 a.m. to 5 p.m. PHONE Please call first before going to clinic. You are not guarantee to be tested for coronavirus 19, they will evaluate on a case-by case basis. I would recommend return if you develop fevers greater than 100.4 F, new shortness of breath, for passing out, having persistent vomiting, new or changing chest pain or other new or concerning symptoms. Prescriptions: No Action boron 6 mg tablet 15 mg PO RF: 0 zinc acetate PO RF: 0 vitamin K2 40 mcg tablet See Rx Instructions PO DAILY RF: 0 ascorbate calcium (vitamin C) 500 mg tablet 1,300 mg PO DAILY RF: 0 magnesium citrate 125 mg capsule 250 mg PO DAILY RF: 0 potassium chloride PO RF: 0 benzonatate [Tessalon Perles] 100 mg capsule 100 mg PO BID-TID PRN (Reason: cough) Qty: 20 RF: 0 vitamins A,C,E-pweu-ugxing [PreserVision AREDS] 1 EACH capsule 1 cap PO QDAY Qty: 0 RF: 0 cyanocobalamin (vitamin B-12) [Vitamin B-12] 5,000 MCG tablet, sublingual 5,000 mcg Sublingual QDAY Qty: 0 RF: 0 cholecalciferol (vitamin D3) 1,000 unit capsule 3,000 unit PO DAILY RF: 0 vitamin E 400 unit capsule 800 unit PO DAILY RF: 0 Prevnar 13 (PF) 0.5 mL syringe 0.5 ml IM ONCE Qty: 0.5 RF: 0 Shingrix (PF) 50 mcg/0.5 mL suspension for reconstitution 50 mcg IM ONCE Qty: 1 RF: 1 levothyroxine [Synthroid] 150 mcg tablet 150 mcg PO DAILY Qty: 45 RF: 1 calcitonin (salmon) 200 unit/actuation spray,non-aerosol 1 spray intranasal (ALT) DAILY Qty: 3.7 RF: 2 Referrals: Nela Zapata DO [Primary Care Provider] -
[2019-09-21 19:49] VITALS: BP 160/71; PULSE 65; RESP 15; TEMP 37; O2SAT 99; BMI 25.3
--- NOTE | 2019-09-21 19:57 | DI.RAD.S_ITS ---
PROCEDURE: XR CHEST 2V INDICATIONS: shortness of breath TECHNIQUE: 2 views of the chest were acquired. COMPARISON: [facility], CR, XR RIBS LT MIN 3V W CXR1V, 01/14/2019, 10:13. FINDINGS: Surgical changes and devices: None. Lungs and pleura: There is mild interstitial prominence which appears chronic. No acute consolidation. No pleural effusions or pneumothorax. Mediastinum: Mediastinal contours are normal. Heart size is normal. Bones and chest wall: No suspicious bony abnormalities. Soft tissues appear unremarkable. IMPRESSION: 1. No acute cardiopulmonary disease. 2. Mild chronic interstitial prominence. Dictated by: Mariano Fernandes M.D. on 09/21/2019 at 20:19 Approved by: Mariano Fernandes M.D. on 09/21/2019 at 20:20
[2019-09-21 20:29] LABS: Add Manual Diff / Slide Review NO; Basophils Absolute Auto 100 /uL (0-100); Basophils Percent Auto 1.2 % (0-2); Eosinophils Absolute Auto 100 /uL (0-450); Eosinophils Percent Auto 1.7 % (2-4); Hemoglobin 13.3 g/dL (12.0-16.0); Lymphocytes Absolute Auto 1800 /uL (1100-4500); Lymphocytes Percent Auto 36.3 % (25-40); Mean Corpuscular HGB Conc 33.3 % (30-36); Mean Corpuscular Hemoglobin 30.4 PG (26-34); Mean Corpuscular Volume 91.2 fL (80-100); Monocytes Absolute Auto 500 /uL (0-900); Monocytes Percent Auto 10.5 % (3-14); Neutrophils Absolute Auto 2600 /uL (1500-7000); Neutrophils Percent Auto 50.3 % (50-75); Platelet Count 187 X10^3/uL (150-400); Red Blood Cell Count 4.39 X10^6/uL (4.0-5.2); Red Cell Distribution Width 13.6 % (11.6-14.8); White Blood Cell Count 5.1 X10^3/uL (4.5-11.0)
[2019-09-21 20:47] LABS: Alanine Aminotransferase 14 IU/L (<35); Albumin 3.7 g/dL (3.5-5.0); Albumin Globulin Ratio 1.3 (1.0-2.8); Alkaline Phosphatase 95 U/L (38-126); Aspartate Aminotransferase 25 IU/L (14-36); BUN Creatinine Ratio 26.7 (6-22); Bilirubin Total 0.3 mg/dL (0.2-1.3); Blood Urea Nitrogen 23 mg/dL (7-17); Calcium 9.2 mg/dL (8.4-10.2); Carbon Dioxide 26 mmol/L (22-32); Chloride 107 mmol/L (98-107); Creatine Kinase 40 U/L (30-135); Estimated Glomerular Filt Rate > 60.0 mL/min (>60); Globulin 2.9 g/dL (1.7-4.1); Glucose 94 mg/dL (80-110); HEMOLYSIS 61 (0-50); Lipase 82 U/L (23-300); Sodium 138 mmol/L (137-145); Total Protein 6.6 g/dL (6.3-8.2)
[2019-09-21 20:48] LABS: Potassium 4.4 mmol/L (3.4-5.1)
[2019-09-21 20:57] LABS: Procalcitonin < 0.05 ng/mL (<0.5)
[2019-09-21 20:59] LABS: Troponin I < 0.012 ng/mL (0.01-0.034)
[2019-09-21 21:10] VITALS: BP 128/61; PULSE 59; O2SAT 99
[2019-09-21 21:30] VITALS: BP 115/59; PULSE 59; O2SAT 99
[2019-09-21 22:13] VITALS: BP 112/61; PULSE 63; RESP 15; O2SAT 97
== END 2019-09-21 22:20 | disposition home or self-care (01) ==
PROVIDERS: Emergency Provider Emergency Medicine; PCP Family Medicine
DX: R05 Cough (principal); R07.9 Chest pain, unspecified; R50.9 Fever, unspecified; R06.02 Shortness of breath; R11.0 Nausea; E03.9 Hypothyroidism, unspecified
CPT/HCPCS: 36415; 71046; 80053; 82550; 83690; 84145; 84484; 85025; 93005; 99284

== ENCOUNTER → 2019-12-04 08:40 | Outpatient (CLI) | payer MEDICARE, SELFPAY ==
[2019-12-04 09:57] LABS: Alanine Aminotransferase 19 IU/L (<35); Albumin Globulin Ratio 1.3 (1.0-2.8); Alkaline Phosphatase 98 U/L (38-126); Aspartate Aminotransferase 26 IU/L (14-36); BUN Creatinine Ratio 13.7 (6-22); Bilirubin Total 0.4 mg/dL (0.2-1.3); Blood Urea Nitrogen 13 mg/dL (7-17); Calcium 9.5 mg/dL (8.4-10.2); Carbon Dioxide 31 mmol/L (22-32); Chloride 104 mmol/L (98-107); Glucose 98 mg/dL (80-110); HEMOLYSIS < 15 (0-50); Sodium 138 mmol/L (137-145)
[2019-12-04 10:12] LABS: Vitamin D 25 Hydroxy (D3) 38.6 ng/mL (30.0-100.0)
[2019-12-04 11:16] LABS: Free T3, Triiodothyronine Free 3.59 pg/mL (2.77-5.27); Free T4, Direct Thyroxine 1.61 ng/dL (0.78-2.19)
[2019-12-04 12:43] LABS: Thyroid Stimulating Hormone 0.07 uIU/mL (0.47-4.68)
[2019-12-05 07:07] LABS: Thyroid Peroxidase Antibodies 58 IU/mL (0-34)
== END ==
PROVIDERS: PCP Family Medicine; Referring Provider Family Medicine; Visit Provider Family Medicine
DX: E03.9 Hypothyroidism, unspecified (principal); M81.0 Age-related osteoporosis without current pathological fracture; Z78.0 Asymptomatic menopausal state; E78.5 Hyperlipidemia, unspecified
CPT/HCPCS: 36415; 80053; 82306; 84439; 84443; 84481; 86376

== ENCOUNTER → 2020-01-03 15:37 | Outpatient (CLI) | payer MEDICARE, SELFPAY ==
--- NOTE | 2020-01-03 15:40 | DI.MRI.S_ITS ---
PROCEDURE: MR THORACIC SPINE WO CON INDICATIONS: compression fracture TECHNIQUE: Noncontrast sagittal T1 spine echo and T2 fast spin echo, sagittal STIR, axial T1 and T2 fast spin echo through the thoracic spine. COMPARISON: [facility], , MR THORACIC SPINE WO CON, 01/15/2019, 7:36. FINDINGS: Image quality: Excellent. Alignment and Curvature: There is normal bony alignment. Bone Marrow: Marrow is of normal overall signal. Chronic appearing T8 compression fracture noted. T8 compression fracture results in approximately 40% loss of normal anterior vertebral body height. No retropulsed fragments associated with T8 compression fracture. No significant kyphosis associated with the T8 compression deformity. No acute vertebral body compression fractures. Spinal Cord: Visualized spinal cord is normal in size and signal. Paraspinous Soft Tissues: No paravertebral masses. Miscellaneous: Mild degenerative changes noted throughout the thoracic spine. No central stenosis. No neural foraminal narrowing. No neural compression. IMPRESSION: 1. Chronic T8 compression fracture stable compared to 01/15/19.. 2. No acute compression fractures. 3. Mild multilevel degenerative disc disease. 4. No neural foraminal narrowing. 5. No neural compression. Dictated by: Elva Angela MD, PhD on 01/03/2020 at 17:29 Approved by: Elva Angela MD, PhD on 01/03/2020 at 17:32
== END ==
PROVIDERS: PCP Family Medicine; Referring Provider Family Medicine; Visit Provider Family Medicine
DX: M48.54XA Collapsed vertebra, not elsewhere classified, thoracic region, initial encounter for fracture (principal)
CPT/HCPCS: 72146

== ENCOUNTER → 2020-01-08 09:09 | Outpatient (CLI) | payer MEDICARE, SELFPAY ==
--- NOTE | 2020-01-08 09:20 | DI.MG.S_ITS ---
Patient Name: CHICO DELONG date: 1950 Sex: F Attending Physician: Benny Indications: Date: 01/08/2020 09:13 At the request of: DELFINO WEINBERG Procedure: MM screening mammo BI BILATERAL DIGITAL SCREENING MAMMOGRAM 3D/2D WITH CAD: 01/08/2020 CLINICAL: Routine screening. Comparison is made to exams dated: 12/02/2018 mammogram, 11/25/2017 mammogram, and 10/15/2016 mammogram - [facility]. The tissue of both breasts is extremely dense, which lowers the sensitivity of mammography. Current study was also evaluated with a Computer Aided Detection (CAD) system. No significant masses, calcifications, or other findings are seen in either breast. There has been no significant interval change. IMPRESSION: NEGATIVE There is no mammographic evidence of malignancy. A 1 year screening mammogram is recommended. This exam was interpreted at Station ID: [id number]. NOTE: For mammograms, a report in lay terms will be sent to the patient. Approximately 15% of breast malignancies will not be visualized mammographically. In the management of a palpable breast mass, a negative mammogram must not discourage biopsy of a clinically suspicious lesion. Electronically Signed By: Josias Mcduffie M.D., jr/yaritza:01/10/2020 08:42:08 letter sent: Normal Exam ACR BI-RADS Category 1: Negative 3341F
== END ==
PROVIDERS: PCP Family Medicine; Referring Provider Family Medicine; Visit Provider Family Medicine
DX: Z12.31 Encounter for screening mammogram for malignant neoplasm of breast (principal)
CPT/HCPCS: 77063; 77067

== ENCOUNTER → 2020-02-26 08:29 | Outpatient (CLI) | payer MEDICARE, SELFPAY ==
[2020-02-26 09:59] LABS: Free T3, Triiodothyronine Free 3.22 pg/mL (2.77-5.27); Free T4, Direct Thyroxine 1.82 ng/dL (0.78-2.19)
[2020-02-26 10:15] LABS: Thyroid Stimulating Hormone < 0.015 uIU/mL (0.47-4.68)
[2020-02-27 07:55] LABS: Thyroid Peroxidase Antibodies 51 IU/mL (0-34)
[2020-02-27 22:33] LABS: Anti Thyroglobulin Antibody <1.0 IU/mL (0.0-0.9)
[2020-03-01 17:52] LABS: Triiodothyronine T3 Reverse 22.9 ng/dL (9.2-24.1)
== END ==
PROVIDERS: PCP Family Medicine; Referring Provider Family Medicine; Visit Provider Family Medicine
DX: E03.9 Hypothyroidism, unspecified (principal)
CPT/HCPCS: 36415; 84439; 84443; 84481; 84482; 86376; 86800

== ENCOUNTER → 2020-06-02 08:56 | Outpatient (CLI) | payer MEDICARE, SELFPAY ==
[2020-06-02 10:40] LABS: Vitamin D 25 Hydroxy (D3) 29.9 ng/mL (30.0-100.0)
[2020-06-02 10:42] LABS: Free T3, Triiodothyronine Free 2.99 pg/mL (2.77-5.27); Free T4, Direct Thyroxine 1.51 ng/dL (0.78-2.19)
[2020-06-02 10:56] LABS: Thyroid Stimulating Hormone < 0.015 uIU/mL (0.47-4.68)
[2020-06-09 05:37] LABS: Triiodothyronine T3 Reverse 27.6 ng/dL (9.2-24.1)
== END ==
PROVIDERS: PCP Family Medicine; Referring Provider Family Medicine; Visit Provider Family Medicine
DX: E03.9 Hypothyroidism, unspecified (principal); M81.0 Age-related osteoporosis without current pathological fracture; M85.80 Other specified disorders of bone density and structure, unspecified site
CPT/HCPCS: 36415; 82306; 84439; 84443; 84481; 84482

== ENCOUNTER → 2020-07-06 09:36 | Outpatient (CLI) | payer MEDICARE, SELFPAY ==
[2020-07-06 11:23] LABS: Add Manual Diff / Slide Review NO; Basophils Absolute Auto 0 /uL (0-100); Basophils Percent Auto 1.1 % (0-2); Eosinophils Absolute Auto 200 /uL (0-450); Hematocrit 42.7 % (36-46); Hemoglobin 14.2 g/dL (12.0-16.0); Lymphocytes Absolute Auto 1900 /uL (1100-4500); Lymphocytes Percent Auto 42.3 % (25-40); Mean Corpuscular HGB Conc 33.3 % (30-36); Mean Corpuscular Hemoglobin 29.9 PG (26-34); Mean Corpuscular Volume 89.6 fL (80-100); Monocytes Absolute Auto 400 /uL (0-900); Monocytes Percent Auto 9.5 % (3-14); Neutrophils Absolute Auto 1900 /uL (1500-7000); Neutrophils Percent Auto 43.1 % (50-75); Platelet Count 199 X10^3/uL (150-400); Red Blood Cell Count 4.76 X10^6/uL (4.0-5.2); White Blood Cell Count 4.5 X10^3/uL (4.5-11.0)
[2020-07-06 12:58] LABS: Free T3, Triiodothyronine Free 3.58 pg/mL (2.77-5.27); Free T4, Direct Thyroxine 1.42 ng/dL (0.78-2.19)
[2020-07-07 06:39] LABS: Thyroid Peroxidase Antibodies 51 IU/mL (0-34)
[2020-07-10 18:56] LABS: Albumin 3.6 g/dL (2.9-4.4); Alpha-1-Globulin 0.2 g/dL (0.0-0.4); Alpha-2-Globulin 0.6 g/dL (0.4-1.0); Gamma Globulin 0.9 g/dL (0.4-1.8); Globulin Total 2.6 g/dL (2.2-3.9); Protein, Total 6.2 g/dL (6.0-8.5)
[2020-07-12 16:44] LABS: Triiodothyronine T3 Reverse 25.2 ng/dL (9.2-24.1)
== END ==
PROVIDERS: PCP Family Medicine; Referring Provider Family Medicine; Visit Provider Family Medicine
DX: E06.3 Autoimmune thyroiditis (principal); R61 Generalized hyperhidrosis
CPT/HCPCS: 36415; 84155; 84156; 84165; 84166; 84439; 84443; 84481; 84482; 85025; 86376

== ENCOUNTER → 2020-07-14 13:12 | Outpatient (CLI) | payer MEDICARE, SELFPAY ==
[2020-08-09 12:35] LABS: Albumin 35.2
[2020-08-09 12:36] LABS: M-Spike % Not Observed
[2020-08-09 12:38] LABS: Total Urine Protein 6.1
== END ==
PROVIDERS: PCP Family Medicine; Referring Provider Family Medicine; Visit Provider Family Medicine
DX: G89.29 Other chronic pain (principal); M80.00XA Age-related osteoporosis with current pathological fracture, unspecified site, initial encounter for fracture; E03.9 Hypothyroidism, unspecified
CPT/HCPCS: 84156; 84166

== ENCOUNTER → 2020-09-22 08:53 | Outpatient (CLI) | payer MEDICARE, SELFPAY ==
[2020-09-22 10:14] LABS: Free T3, Triiodothyronine Free 2.85 pg/mL (2.77-5.27)
[2020-09-22 10:28] LABS: Thyroid Stimulating Hormone 0.027 uIU/mL (0.47-4.68)
== END ==
PROVIDERS: PCP Family Medicine; Referring Provider Family Medicine; Visit Provider Family Medicine
DX: E06.3 Autoimmune thyroiditis (principal)
CPT/HCPCS: 36415; 84439; 84443; 84481

== ENCOUNTER → 2021-03-02 09:40 | Outpatient (CLI) | payer MEDICARE, SELFPAY ==
[2021-03-02 11:35] LABS: Free T3, Triiodothyronine Free 4.54 pg/mL (2.77-5.27); Free T4, Direct Thyroxine 2.21 ng/dL (0.78-2.19)
[2021-03-02 11:36] LABS: Vitamin D 25 Hydroxy (D3) 29.6 ng/mL (30.0-100.0)
[2021-03-02 11:50] LABS: Thyroid Stimulating Hormone < 0.015 uIU/mL (0.47-4.68)
[2021-03-03 06:37] LABS: Thyroid Peroxidase Antibodies 68 IU/mL (0-34)
[2021-03-03 10:09] LABS: Parathyroid Hormone Int 40 pg/mL (15-65)
[2021-03-03 20:04] LABS: Anti Thyroglobulin Antibody <1.0 IU/mL (0.0-0.9)
[2021-03-11 16:53] LABS: Triiodothyronine T3 Reverse 33.4 ng/dL (9.2-24.1)
== END ==
PROVIDERS: PCP Family Medicine; Referring Provider Family Medicine; Visit Provider Family Medicine
DX: E06.3 Autoimmune thyroiditis (principal); E21.3 Hyperparathyroidism, unspecified; K90.41 Non-celiac gluten sensitivity; M80.00XA Age-related osteoporosis with current pathological fracture, unspecified site, initial encounter for fracture; E78.5 Hyperlipidemia, unspecified; E83.52 Hypercalcemia
CPT/HCPCS: 36415; 82306; 83970; 84439; 84443; 84481; 84482; 86376; 86800

== ENCOUNTER → 2021-03-07 14:20 | Outpatient (CLI) | payer MEDICARE, SELFPAY ==
--- NOTE | 2021-03-07 | DI.MG.S_ITS ---
BILATERAL DIGITAL SCREENING MAMMOGRAM 3D/2D WITH CAD: 03/07/2021 CLINICAL: Routine screening. Comparison is made to exams dated: 01/08/2020 mammogram, 12/02/2018 mammogram, and 11/25/2017 mammogram - [facility]. The tissue of both breasts is extremely dense, which lowers the sensitivity of mammography. Current study was also evaluated with a Computer Aided Detection (CAD) system. There is a stable benign focal asymmetry in the left breast. No significant masses, calcifications, or other findings are seen in either breast. There has been no significant interval change. IMPRESSION: BENIGN There is no mammographic evidence of malignancy. A 1 year screening mammogram is recommended. This exam was interpreted at Station ID: [id number]. NOTE: For mammograms, a report in lay terms will be sent to the patient. Approximately 15% of breast malignancies will not be visualized mammographically. In the management of a palpable breast mass, a negative mammogram must not discourage biopsy of a clinically suspicious lesion. Electronically Signed By: Antonio Townsend acr/yaritza:03/07/2021 14:57:49 letter sent: Normal Exam ACR BI-RADS Category 2: Benign Finding(s) 3342F
== END ==
PROVIDERS: PCP Family Medicine; Referring Provider Family Medicine; Visit Provider Family Medicine
DX: Z12.31 Encounter for screening mammogram for malignant neoplasm of breast (principal)
CPT/HCPCS: 77063; 77067

== ENCOUNTER → 2021-03-19 14:34 | Outpatient (CLI) | payer MEDICARE, SELFPAY ==
[2021-03-20 16:23] LABS: SARS CoV19 IgG Negative (Negative)
== END ==
PROVIDERS: PCP Family Medicine; Referring Provider Family Medicine; Visit Provider Family Medicine
DX: Z20.822 Contact with and (suspected) exposure to COVID-19 (principal); B34.9 Viral infection, unspecified
CPT/HCPCS: 36415; 86769

== ENCOUNTER → 2021-05-14 09:51 | Outpatient (CLI) | payer MEDICARE, SELFPAY ==
[2021-05-14 11:33] LABS: Free T3, Triiodothyronine Free 3.78 pg/mL (2.77-5.27); Free T4, Direct Thyroxine 1.72 ng/dL (0.78-2.19)
[2021-05-14 11:46] LABS: Thyroid Stimulating Hormone < 0.015 uIU/mL (0.47-4.68)
== END ==
PROVIDERS: PCP Family Medicine; Referring Provider Family Medicine; Visit Provider Family Medicine
DX: E06.3 Autoimmune thyroiditis (principal)
CPT/HCPCS: 36415; 84439; 84443; 84481

== ENCOUNTER 2021-06-06 12:29 | Observation (INO) | payer MEDICARE, SELFPAY ==
[2021-06-06] VITALS (16 sets, daily range): BP systolic 99–125; BP diastolic 56–73; PULSE 60–92; RESP 13–23; TEMP 36.8–36.9; O2SAT 98–100; BMI 25.7
--- NOTE | 2021-06-06 12:37 | DI.CT.S_ITS ---
PROCEDURE: CT STROKE INDICATIONS: dizziness TECHNIQUE: Noncontrast 4.5 mm thick angled axial sections acquired from the foramen magnum to the vertex, with coronal reformats. For radiation dose reduction, the following was used: automated exposure control, adjustment of mA and/or kV according to patient size. COMPARISON: None. FINDINGS: Image quality: Excellent. CSF spaces: Basal cisterns are patent. No extra-axial fluid collections. The ventricles are symmetric in size and shape. Brain: No intracranial bleeds or masses. There is cerebral volume loss for age, with resultant ventricular and sulcal prominence. There are periventricular and deep white matter chronic small vessel ischemic changes. There is intracranial internal carotid artery atherosclerosis. Skull and face: Calvarium and visualized facial bones appear intact, without suspicious lesions. Sinuses: Visualized sinuses and mastoids are clear. IMPRESSION: No acute intracranial disease process. Findings telephoned to Dr. Hart on June 06, 2021 at 1:01 p.m. This study fulfills neurological imaging criteria for inclusion or exclusion of acute stroke therapies based on available published neurological guidelines. Dictated by: Elva Angela MD, PhD on 06/06/2021 at 13:01 Approved by: Elva Angela MD, PhD on 06/06/2021 at 13:03
--- NOTE | 2021-06-06 12:40 | DI.CT.S_ITS ---
PROCEDURE: CT ANGIO HEAD AND NECK INDICATIONS: dizziness TECHNIQUE: After the administration of intravenous contrast, 1 mm thick sections acquired from the aortic arch through the [place] of [place]. Post-contrast 4.5 mm thick sections then re-acquired from the foramen magnum to the vertex. 3-dimensional mlgsigc-knpifrrwj-ztsutkiyvk (MIP) and/or volume rendering reformats were acquired of the central intracranial vasculature and neck separately. COMPARISON: [facility], CT, CT STROKE, 06/06/2021, 12:47. FINDINGS: Image quality: Excellent. BRAIN: CSF spaces: Ventricles are normal in size and shape. Basal cisterns are patent. No extra-axial fluid collections. Brain: No midline shift. No intracranial bleeds or masses. Kincaid-white matter interface appears intact. 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 Skull and face: Calvarium and facial bones appear intact, without suspicious lesions. Orbits appear normal. Sinuses: Sinuses and mastoids are clear. HEAD CT ANGIOGRAPHY: Anterior circulation: Intracranial internal carotid arteries are normal in size and flow. The flow within the paired anterior cerebral arteries is normal and symmetric. The flow within the middle cerebral arteries is normal and symmetric. The anterior communicating artery is seen. No aneurysms are seen. Posterior circulation: Visualized portions of the vertebral arteries demonstrate normal caliber, and join to form a normal appearing basilar artery. Flow within the posterior cerebral arteries is normal and symmetric. Posterior cerebral arteries have origins. No aneurysms are seen. Dural sinuses demonstrate normal postcontrast enhancement. NECK CT ANGIOGRAPHY: Carotid system: The great vessels demonstrate a conventional anatomy as they arise from the aortic arch. The origins of the common carotid arteries appear patent. The common carotid arteries demonstrate normal caliber and courses. The bifurcation regions are both widely patent. The internal carotid arteries demonstrate normal calibers and courses. Posterior circulation: The origins of the vertebral arteries both appear widely patent. The more superior extracranial portions of both vertebral arteries also demonstrate normal courses and calibers. They join to form a normal appearing basilar artery. Soft tissues: Visualized neck soft tissues demonstrate no suspicious abnormalities. Bones: No suspicious bony lesions. Spine degenerative disc disease and facet arthropathy. Visualized cervical spine appears normally aligned. IMPRESSION: 1. No acute intracranial disease process. 2. No large vessel occlusion, hemodynamically significant vascular stenosis, vascular dissection or aneurysm. Any quantitative measurements of stenosis were performed using NASCET criteria. Dictated by: Elva Angela MD, PhD on 06/06/2021 at 13:04 Approved by: Elva Angela MD, PhD on 06/06/2021 at 13:16
--- NOTE | 2021-06-06 12:58 | ED_ITS ---
HPI - Dizziness General Chief Complaint: Dizziness Stated Complaint: dizziness Time Seen by Provider: 06/06/21 12:36 Source: patient Mode of arrival: Ambulatory Limitations: no limitations History of Present Illness HPI Narrative: 71-year-old female comes emergency department with acute onset of dizziness or like her head is sort of swimming that came on about 11 45 today. She was seated at [employer] class. She felt nauseated like she needed to vomit. She had some pressure in her head which has since improved. She feels a little foggy she feels like she has to search for words but she is able to speak. She has not had any dysarthria. She denies any numbness, tingling or on exam notes her right leg seems a little bit different than her left. Patient takes medication for thyroid but denies any other medical issues. She is allergic to narcotics. She has never had similar symptoms to this in the past. She denies any other symptoms other than her chest seems a little bit uncomfortable to touch. She denies shortness of breath. No vomiting. Related Data Home Medications Medication Instructions Recorded Confirmed cyanocobalamin (vitamin B-12) 5,000 mcg SUBLINGUAL QDAY #0 09/04/16 06/06/21 5,000 mcg sublingual tablet (Vitamin B-12) vitamins A,C,H-awsq-ybmrtb 14,320 1 cap PO QDAY #0 09/04/16 06/06/21 unit-226 mg-200 unit capsule (PreserVision AREDS) vitamin E 400 unit capsule 800 unit PO DAILY 12/14/18 06/06/21 boron 6 mg tablet 15 mg PO DAILY tab 08/29/19 06/06/21 magnesium citrate 125 mg capsule 250 mg PO DAILY 08/29/19 06/06/21 vitamin K2 40 mcg tablet See Rx Instructions PO DAILY tab 08/29/19 06/06/21 Previous Rx's Medication Instructions Recorded liothyronine 5 mcg tablet 2.5 mcg PO BID #60 tab 01/10/21 Levoxyl 100 mcg tablet 100 mcg PO DAILY #60 tab NS 05/18/21 (levothyroxine) Allergies Allergy/AdvReac Type Severity Reaction Status Date / Time Penicillins [PENICILLINS] Allergy Unknown UNKNOWN - Verified 06/06/21 12:57 PATIENT WAS A CHILD WHEN IT HAPPENED acetaminophen [ACETAMINOPHEN] AdvReac Severe (PERCOCET) Verified 06/06/21 12:57 VOMITING ibuprofen [IBUPROFEN] AdvReac Severe SWELLING, Verified 06/06/21 12:57 ITCHING AND DISCHARGE FROM EYES morphine [MORPHINE] AdvReac Severe HIVES Verified 06/06/21 12:57 oxycodone [OXYCODONE] AdvReac Severe (PERCOCET) Verified 06/06/21 12:57 VOMITING meperidine [MEPERIDINE] AdvReac Intermediate (DEMEROL) Verified 06/06/21 12:57 HIVES hydrocodone [HYDROCODONE] AdvReac Mild (VICODIN) Verified 06/06/21 12:57 NAUSEA Review of Systems Review of Systems ROS Unobtainable: All systems reviewed & are unremarkable except as noted in HPI and below Patient History Medical History Cataracts, bilateral Chicken pox Choroidal nevus of right eye (~2012) Endometriosis Fibroids Michael's thyroiditis Hyperlipidemia Hypothyroidism Malaria (~2007) Measles Melanoma Melanoma, choroid Migraines Mumps Nevus (~2012) Osteopenia (~2018) Osteoporosis (~2018) Sinusitis Thoracic radiculopathy due to intervertebral disc disorder Vision disorder Surgical History Anesthesia History of hysterectomy for benign disease (~1995) History of toe surgery (~2012) History of tonsillectomy (~1956) Family History Father Leukemia Mother History of heart disease Hypertension Brother History of heart disease Hyperlipidemia Hypertension Grandfather Cancer Grandmother Pneumonia Social History household members: none Smoking Status: Former smoker Tobacco: How many years used: 7 second hand exposure: Yes (in the past when everyone smoked at their desk.) alcohol intake: former substance use type: does not use Smoking Status: Former smoker alcohol intake frequency: other Substance Use Type: does not use Exam Narrative Exam Narrative: GEN: well nourished, well appearing female, alert and oriented x 3, patient appears to be in mild distress. HEENT: Atraumatic, pupils are equal round reactive to light, extraocular movements are intact, no nystagmus, nares are clear, TMs are clear with no fluid, there is no conjunctival pallor. Throat is clear without any exudates, erythema, tonsillar enlargement or uvular deviation, no facial droop HEART: Regular rate and rhythm without murmur, clicks, rubs. LUNGS:Lungs clear to auscultation, no wheezes, rales, crackles, chest moves symmetrically ABD:bowel sounds normal, soft, non-tender, no guarding, rebound, rigidity, no masses noted, no hepatosplenomegaly MSCL: Non-tender, no muscle atrophy, muscles strength 5/5 upper and lower extremities, full range of motion, normal gait NEURO:CN 2-12 intact, sensation-patient notes right leg feels a different to touch but she has sensation to light touch on the right. No other changes on exam. finger nose finger test normal, heel marquis test normal Initial Vital Signs Initial Vital Signs: Vital Signs Temperature 98.4 F 06/06/21 12:30 Pulse Rate 66 06/06/21 12:30 Respiratory Rate 17 06/06/21 12:30 Blood Pressure 125/70 06/06/21 12:30 Pulse Oximetry 99 06/06/21 12:30 Scores NIH Stroke Scale Level of Conciousness: Alert, keenly responsive Ask month/age: Answers both questions correctly. Open/close eyes, close hand: Performs both tasks correctly Best gaze horizontal: Normal Visual duarte: No visual loss Facial palsy: Normal symetrical movement Left arm drift: No drift for full 10 sec Right arm drift: No drift for full 10 sec Left leg drift: No drift for full 5 sec Right leg drift: No drift for full 5 sec Limb ataxia: Absent Sensory on face/arms/legs: Mild to moderate sensory loss, can tell touch Best language: No aphasia, normal Dysarthria: Normal Extinction or inattention: No abnormality Total NIH Stroke scale score: 1 Course Orders Ordered: ED Orders 06/06/21 12:33 EKG-12 Lead Stat 06/06/21 12:37 CT Stroke Stat Urine Drug Screen, Rapid Stat 06/06/21 12:40 CT angio head and neck Stat 06/06/21 12:45 Basic Metabolic Panel Stat Complete Blood Count AUTO DIFF Stat Ethanol (ETOH) Stat Partial Thromboplastin Time Stat Prothrombin Time INR Stat Troponin & CK Cardiac Panel Stat 06/06/21 13:46 COVID19 -Nasal swab/Pre-Proc Stat Acetaminophen (Acetaminophen 325 Mg Tablet) 650 mg PO Q6HR PRN PRN Reason: Fever/Mild Pain (1-3) Atorvastatin Calcium (Atorvastatin 20 Mg Tablet) 80 mg PO BEDTIME BHARATH Clopidogrel Bisulfate (Clopidogrel 75 Mg Tablet) 75 mg PO DAILY BHARATH Enoxaparin Sodium (Enoxaparin 40 Mg/0.4 Ml Syringe) 40 mg SUBCUT DAILY BHARATH Levothyroxine Sodium (Levothyroxine 100 Mcg Tablet) 100 mcg PO DAILY@0600 BHARATH Liothyronine Sodium (Liothyronine 5 Mcg Tablet) 2.5 mcg PO 0600,2100 BHARATH Ondansetron HCl (Ondansetron 4 Mg/2 Ml Inj) 4 mg IV Q8HR PRN PRN Reason: Nausea And Vomiting Discontinued Medications Aspirin (Aspirin 81 Mg Chew Tab) 324 mg PO NOW ONE Stop: 06/06/21 13:20 Last Admin: 06/06/21 13:42 Dose: 324 mg Documented by: VALERIY Sodium Chloride (Normal Saline 0.9%) 1,000 mls @ 150 mls/hr IV CONT BHARATH Last Infusion: 06/06/21 15:31 Dose: 0 mls/hr Documented by: Infusion: 06/06/21 15:19 Dose: 0 mls/hr Documented by: Admin: 06/06/21 13:42 Dose: 150 mls/hr Documented by: VALERIY Meclizine HCl (Meclizine Hcl 12.5 Mg Tablet) 25 mg PO NOW ONE Stop: 06/06/21 13:20 Last Admin: 06/06/21 15:17 Dose: Not Given Documented by: VALERIY Reevaluation(s) Reevaluation #1: Patient's vertigo symptoms have improved. She is able to ambulate in the emergency department without issue. She still has a slight difference in her change of sensation on her right versus left leg. Consultations Consultation #1: Case discussed with Dr. Benjamin with [facility]. Patient has vertigo symptoms but are improving not completely resolved. She has some slight change in her sensation in right leg but is ambulating without issue and no other changes on her NIH. No tpa recommended based on minimal symptoms vs risk of bleed. Per head CT is negative, CT angio does not show any occluded occlusion. She has been given aspirin they recommend observation with MRI for CVA. Consultation #2: Dr. Puckett, accepts for admission. He will put orders in. Patient has had aspirin. Vital Signs Vital signs: Vital Signs - 8 hr 06/06/21 12:30 06/06/21 12:56 06/06/21 13:00 Temperature 98.4 F Pulse Rate 66 72 69 Pulse Rate [Orthostatic Lying] Pulse Rate [Orthostatic Sitting] Pulse Rate [Orthostatic Standing] Respiratory Rate 17 22 13 Blood Pressure 125/70 Blood Pressure [Orthostatic Lying] Blood Pressure [Orthostatic Sitting] Blood Pressure [Orthostatic Standing] Pulse Oximetry 99 98 100 06/06/21 13:30 06/06/21 13:42 06/06/21 13:48 Temperature Pulse Rate 67 65 63 Pulse Rate [Orthostatic Lying] Pulse Rate [Orthostatic Sitting] Pulse Rate [Orthostatic Standing] Respiratory Rate 18 18 13 Blood Pressure 99/56 L 106/62 Blood Pressure [Orthostatic Lying] Blood Pressure [Orthostatic Sitting] Blood Pressure [Orthostatic Standing] Pulse Oximetry 100 100 06/06/21 13:52 06/06/21 13:54 06/06/21 13:57 Temperature Pulse Rate 67 72 Pulse Rate [Orthostatic Lying] 65 Pulse Rate [Orthostatic Sitting] 66 Pulse Rate [Orthostatic Standing] 66 Respiratory Rate 23 18 Blood Pressure 120/72 118/68 Blood Pressure [Orthostatic Lying] 106/62 Blood Pressure [Orthostatic Sitting] 120/72 Blood Pressure [Orthostatic Standing] 118/68 Pulse Oximetry 06/06/21 14:01 06/06/21 14:30 06/06/21 15:00 Temperature Pulse Rate 64 61 60 Pulse Rate [Orthostatic Lying] Pulse Rate [Orthostatic Sitting] Pulse Rate [Orthostatic Standing] Respiratory Rate 17 18 16 Blood Pressure 124/69 120/67 112/62 Blood Pressure [Orthostatic Lying] Blood Pressure [Orthostatic Sitting] Blood Pressure [Orthostatic Standing] Pulse Oximetry MDM - Dizziness Lab Data Result diagrams: 06/06/21 12:45 06/06/21 12:45 Labs: Lab Results 06/06/21 06/06/21 06/06/21 Range/Units 12:45 12:45 12:45 WBC 5.1 (4.5-11.0) X10^3/uL RBC 4.63 (4.0-5.2) X10^6/uL Hgb 13.6 (12.0-16.0) g/dL Hct 41.2 (36-46) % MCV 89.2 (80-100) fL MCH 29.3 (26-34) PG MCHC 32.9 (30-36) % RDW 14.3 (11.6-14.8) % Plt Count 207 (150-400) X10^3/uL Neut % (Auto) 57.0 (50-75) % Lymph % (Auto) 30.6 (25-40) % [place] % (Auto) 9.5 (3-14) % Eos % (Auto) 2.1 (2-4) % Baso % (Auto) 0.8 (0-2) % Neut # (Auto) 2900 (9050-1806) /uL Lymph # (Auto) 1500 (9134-9853) /uL [place] # (Auto) 500 (0-900) /uL Eos # (Auto) 100 (0-450) /uL Baso # (Auto) 0 (0-100) /uL PT 10.9 (10.1-12.7) SECONDS INR 1.0 (0.9-1.3) APTT 29 (26.4-36.2) SECONDS Sodium (137-145) mmol/L Potassium (3.4-5.1) mmol/L Chloride (98-107) mmol/L Carbon Dioxide (22-32) mmol/L BUN (7-17) mg/dL Creatinine (0.52-1.04) mg/dL Estimated GFR (>60) mL/min BUN/Creatinine Ratio (6-22) Glucose (80-110) mg/dL Calcium (8.4-10.2) mg/dL Total Creatine Kinase 34 (30-135) U/L CK-MB (CK-2) TNP CK-MB (CK-2) Rel Index TNP Troponin I < 0.012 (0.01-0.034) ng/mL Ethyl Alcohol < 10 ( - 10) mg/dL SARS-CoV-2 (PCR) (Negative) 06/06/21 06/06/21 Range/Units 12:45 13:46 WBC (4.5-11.0) X10^3/uL RBC (4.0-5.2) X10^6/uL Hgb (12.0-16.0) g/dL Hct (36-46) % MCV (80-100) fL MCH (26-34) PG MCHC (30-36) % RDW (11.6-14.8) % Plt Count (150-400) X10^3/uL Neut % (Auto) (50-75) % Lymph % (Auto) (25-40) % [place] % (Auto) (3-14) % Eos % (Auto) (2-4) % Baso % (Auto) (0-2) % Neut # (Auto) (1899-5603) /uL Lymph # (Auto) (1431-1910) /uL [place] # (Auto) (0-900) /uL Eos # (Auto) (0-450) /uL Baso # (Auto) (0-100) /uL PT (10.1-12.7) SECONDS INR (0.9-1.3) APTT (26.4-36.2) SECONDS Sodium 139 (137-145) mmol/L Potassium 4.3 (3.4-5.1) mmol/L Chloride 105 (98-107) mmol/L Carbon Dioxide 28 (22-32) mmol/L BUN 17 (7-17) mg/dL Creatinine 1.05 H (0.52-1.04) mg/dL Estimated GFR 51.4 L (>60) mL/min BUN/Creatinine Ratio 16.2 (6-22) Glucose 105 (80-110) mg/dL Calcium 9.2 (8.4-10.2) mg/dL Total Creatine Kinase (30-135) U/L CK-MB (CK-2) CK-MB (CK-2) Rel Index Troponin I (0.01-0.034) ng/mL Ethyl Alcohol ( - 10) mg/dL SARS-CoV-2 (PCR) Negative (Negative) Urine Dip Bedside Urine Glucose Negative Bedside Urine Bilirubin - Negative Bedside Urine Ketone +/- 5 Urine Specific [place] 1.005 Bedside Urine Occult Blood - Negative Bedside Urine pH 7.5 Bedside Urine Protein - Negative Bedside Urine Urobilinogen - Negative Bedside Urine Nitrite - Negative Bedside Urine Leukocytes - Negative Esterase Imaging Data CT scan - head: Radiologist's Impression: [address] [address] [address] Scan Report Signed Patient: Olga Lidia Dejesus MR#: [id number] : 1950 Acct:[id number] Age/Sex: 71 / F Date of Service: 06/06/21 Loc: ED Accession Number: [id number] ?? Procedure: CT Stroke Ordering Provider: Alana Hart D.O. PROCEDURE:? CT STROKE ? INDICATIONS:? dizziness ? TECHNIQUE:? Noncontrast 4.5 mm thick angled axial sections acquired from the foramen magnum to the vertex, with coronal reformats.? For radiation dose reduction, the following was used:? automated exposure control, adjustment of mA and/or kV according to patient size.? ? COMPARISON:? None. ? FINDINGS:? Image quality:? Excellent.? ? CSF spaces:? Basal cisterns are patent.? No extra-axial fluid collections.? The ventricles are symmetric in size and shape.? ? Brain:? No intracranial bleeds or masses.? There is cerebral volume loss for age, with resultant ventricular and sulcal prominence.? There are periventricular and deep white matter chronic small vessel ischemic changes.? There is intracranial internal carotid artery atherosclerosis.? ? Skull and face:? Calvarium and visualized facial bones appear intact, without suspicious lesions.? ? Sinuses:? Visualized sinuses and mastoids are clear.? ? ? IMPRESSION:? No acute intracranial disease process. ? ? Findings telephoned to Dr. Hart on June 06, 2021 at 1:01 p.m. ? ? This study fulfills neurological imaging criteria for inclusion or exclusion of acute stroke therapies based on available published neurological guidelines.? ? ? Dictated by: Elva Angela MD, PhD on 06/06/2021 at 13:01 ? ? Approved by: Elav Angela MD, PhD on 06/06/2021 at 13:03?? CTA - brain/neck: Radiologist's Impression: Olga Lidia Dejesus??71??F??1950 ? Allergy/Adv: Penicillins, acetaminophen, ibuprofen, morphine, oxycodone, meperidine, hydrocodone (More??) Close Head/Neck CTA (Signed) Elva Angela - 06/06/[address] (Signed) Elva Angela - 06/06/21 Mammogram Screening (Signed) Antonio Townsend - 03/07/21 Mammogram Screening (Signed) Josias Mcduffie - 01/08/20 Thoracic Spine MRI (Signed) Elva Angela - 01/03/20 Chest X-Ray (Signed) Mariano Fernandes - 09/21/19 Hepatobiliary Scan Nuclear Medicine (Signed) Elva Angela - 08/02/19 Echocardiogram Ultrasound (Signed) Cintia Ovalles - 07/29/19 Abdomen Ultrasound (Signed) Master Dunn - 07/21/19 Thoracic Spine MRI (Signed) Chandana Ugalde - 01/15/19 Thoracic Spine X-Ray (Signed) Cyril Chavez - 01/14/19 Ribs X-Ray (Signed) Cyril Chavez - 01/14/19 DI Result 01/05/19 Bone Densitometry 01/05/19 Mammogram Screening (Signed) Mariano Fernandes - 12/02/18 Renal Scan Nuclear Medicine (Signed) Elva Angela - 03/10/18 Abdomen Ultrasound (Signed) Master Dunn - 01/07/18 Chest/Abdomen/Pelvis CT (Addendum) Master Dunn - 01/02/18 Mammogram Screening (Signed) Stephanie Hoffman - 11/25/17 [place] [address] CT Scan Report Signed Patient: Olga Lidia Dejesus MR#: [id number] : 1950 Acct:[id number] Age/Sex: 71 / F Date of Service: 06/06/21 Loc: ED Accession Number: [id number] ?? Procedure: CT angio head and neck Ordering Provider: Alana Hart D.O. PROCEDURE:? CT ANGIO HEAD AND NECK ? INDICATIONS:? dizziness ? TECHNIQUE:? After the administration of intravenous contrast, 1 mm thick sections acquired from the aortic arch through the [place].? Post-contrast 4.5 mm thick sections then re-acquired from the foramen magnum to the vertex.? 3-dimensional nbovknd-rqgegavkz-nlkflqhoyc (MIP) and/or volume rendering reformats were acquired of the central intracranial vasculature and neck separately. ? COMPARISON:? [facility], CT, CT STROKE, 06/06/2021, 12:47. ? FINDINGS:? Image quality:? Excellent.? ? BRAIN:? CSF spaces:? Ventricles are normal in size and shape.? Basal cisterns are patent.? No extra-axial fluid collections.? ? Brain:? No midline shift.? No intracranial bleeds or masses.? Kincaid-white matter interface appears intact.? 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 ? Skull and face:? Calvarium and facial bones appear intact, without suspicious lesions.? Orbits appear normal.? ? Sinuses:? Sinuses and mastoids are clear.? ? HEAD CT ANGIOGRAPHY:? Anterior circulation:? Intracranial internal carotid arteries are normal in size and flow.? The flow within the paired anterior cerebral arteries is normal and symmetric.? The flow within the middle cerebral arteries is normal and symmetric.? The anterior communicating artery is seen.? No aneurysms are seen.? ? Posterior circulation:? Visualized portions of the vertebral arteries demonstrate normal caliber, and join to form a normal appearing basilar artery.? Flow within the posterior cerebral arteries is normal and symmetric.? Posterior cerebral arteries have origins.? No aneurysms are seen. ? Dural sinuses demonstrate normal postcontrast enhancement. ? ? NECK CT ANGIOGRAPHY:? Carotid system:? The great vessels demonstrate a conventional anatomy as they arise from the aortic arch.? The origins of the common carotid arteries appear patent.? The common carotid arteries demonstrate normal caliber and courses.? The bifurcation regions are both widely patent.? The internal carotid arteries demonstrate normal calibers and courses.? ? Posterior circulation:? The origins of the vertebral arteries both appear widely patent.? The more superior extracranial portions of both vertebral arteries also demonstrate normal courses and calibers.? They join to form a normal appearing basilar ar nora.? ? Soft tissues:? Visualized neck soft tissues demonstrate no suspicious abnormalities.? ? Bones:? No suspicious bony lesions. Spine degenerative disc disease and facet arthropathy. Visualized cervical spine appears normally aligned.? ? ? IMPRESSION:? ? 1. No acute intracranial disease process. ? 2. No large vessel occlusion, hemodynamically significant vascular stenosis, vascular dissection or aneurysm.? ? ? Any quantitative measurements of stenosis were performed using NASCET criteria.? ? ? Dictated by: Elva Angela MD, PhD on 06/06/2021 at 13:04 ? ? Approved by: Elva Angela MD, PhD on 06/06/2021 at 13:16?? ECG Data Attestation: I personally reviewed and interpreted this ECG as follows: Interpretation: Sinus rhythm rate of 67 RI 162 QRS 88 QTC 448. Nonspecific change. MDM Narrative Medical decision making narrative: 71-year-old female with acute onset of vertigo like symptoms. Her only ne urologic changes found are some sensation changes on the right comparison left upper leg. Head CT, CT angio are negative. Patient is within the time window for tPA but based on her minimal symptoms with normal ability to ambulate after discussion with [facility] we elected to not give tPA. Patient is in agreement with this plan based on risk versus benefits. Plan for observation, MRI and stroke workup. Patient is kindly accepted by the hospitalist. Discharge Plan Departure Patient Disposition: Admitted as Observation Clinical Impression: Acute CVA (cerebrovascular accident) Admit Date/Time: 06/06/21 15:15 Admit Provider: Jimmy Puckett
[2021-06-06 13:08] LABS: Add Manual Diff / Slide Review NO; Basophils Absolute Auto 0 /uL (0-100); Basophils Percent Auto 0.8 % (0-2); Eosinophils Absolute Auto 100 /uL (0-450); Eosinophils Percent Auto 2.1 % (2-4); Hematocrit 41.2 % (36-46); Hemoglobin 13.6 g/dL (12.0-16.0); Lymphocytes Absolute Auto 1500 /uL (1100-4500); Lymphocytes Percent Auto 30.6 % (25-40); Mean Corpuscular HGB Conc 32.9 % (30-36); Mean Corpuscular Hemoglobin 29.3 PG (26-34); Mean Corpuscular Volume 89.2 fL (80-100); Monocytes Absolute Auto 500 /uL (0-900); Monocytes Percent Auto 9.5 % (3-14); Neutrophils Absolute Auto 2900 /uL (1500-7000); Platelet Count 207 X10^3/uL (150-400); Red Blood Cell Count 4.63 X10^6/uL (4.0-5.2); Red Cell Distribution Width 14.3 % (11.6-14.8); White Blood Cell Count 5.1 X10^3/uL (4.5-11.0)
[2021-06-06 13:13] LABS: Prothrombin Time 10.9 SECONDS (10.1-12.7)
[2021-06-06 13:15] LABS: PTT Partial Thromboplastin Tim 29 SECONDS (26.4-36.2)
[2021-06-06 13:19] LABS: Creatine Kinase 34 U/L (30-135); Ethanol (ETOH) < 10 mg/dL
[2021-06-06 13:20] LABS: BUN Creatinine Ratio 16.2 (6-22); Blood Urea Nitrogen 17 mg/dL (7-17); Calcium 9.2 mg/dL (8.4-10.2); Carbon Dioxide 28 mmol/L (22-32); Chloride 105 mmol/L (98-107); Estimated Glomerular Filt Rate 51.4 mL/min (>60); Glucose 105 mg/dL (80-110); HEMOLYSIS 34 (0-50); Potassium 4.3 mmol/L (3.4-5.1); Sodium 139 mmol/L (137-145)
[2021-06-06 13:36] LABS: Troponin I < 0.012 ng/mL (0.01-0.034)
[2021-06-06] MEDS: SODIUM CHLORIDE 0.9% 1,000 ML 150 ML IV (13:42)
[2021-06-06] MEDS: ASPIRIN 81 MG CHEW TAB 324 MG PO (13:42)
[2021-06-06 14:20] LABS: COVID19 -Nasal RAPID Negative (Negative)
--- NOTE | 2021-06-06 14:37 | PC.NURSE ---
pt ambulated to restroom without assistance, steady gait.
--- NOTE | 2021-06-06 15:34 | DI.MRI.S_ITS ---
PROCEDURE: MR HEAD/BRAIN WO CON INDICATIONS: CVA? TECHNIQUE: Non-contrast axial T1 spin echo, axial T2 fast spin echo, sagittal and axial FLAIR, coronal T2 fast spin echo, axial gradient echo, axial diffusion and ADC through the brain. COMPARISON: [facility], CT, CT ANGIO HEAD AND NECK, 06/06/2021, 12:47. FINDINGS: Image quality: Excellent. CSF spaces: Ventricles appear symmetric in size and shape. Basal cisterns are patent. No extra-axial fluid collections. Brain: No intracranial bleeds or mass effects. Small chronic left posterior cerebellar infarct. There is cerebral volume loss for age. There are periventricular and deep white matter chronic small vessel ischemic changes. Brainstem appears normal. Diffusion-weighted images show no acute ischemic insults. No chronic ischemic insults. Normal intravascular flow voids are present. Skull and face: Calvarial bone marrow is normal in signal. Orbits are normal. Sinuses: Sinuses and mastoids are clear. IMPRESSION: 1. Mild volume loss. Minimal small vessel ischemic disease. 2. Small chronic left cerebellar infarct. 3. No acute process. No recent infarct. Dictated by: Kelly Foster M.D. on 06/06/2021 at 16:22 Approved by: Kelly Foster M.D. on 06/06/2021 at 16:24
--- NOTE | 2021-06-06 15:52 | PM.HP.1 ---
History of Present Illness History of Present Illness Date Patient Seen: 06/06/21 Time Patient Seen: 15:00 Chief complaint: dizziness Narrative: 71W with PMH of hypothyroidism who presents with acute dizziness and right leg numbness. She was in her normal state of health, had been quite active prior. She noted at 11:45 today she sat down for Bible study and then felt as if her head was swimming. She had nausea and head pressure. She had difficulty in finding the right words. She had lower right leg numbness. This resolved by the time I saw her in the ED. She had no dysarthria. She was ambulating well. She had no weakness in her extremities. In the ED workup was done, vitals were unremarkable. Labs notable for WBC 5.1, hgb 13.6, plts 207. INR 1.0. troponin negative, etoh negative. BUN 17, creatinine 1.05. CT head showed no acute process. CTA head/neck showed no acute process. She was given full dose aspirin. Telestroke consulted and determined no indication for tpa. She was admitted for further treatment. Patient History Medical History Cataracts, bilateral Chicken pox Choroidal nevus of right eye (~2012) Endometriosis Fibroids Michael's thyroiditis Hyperlipidemia Hypothyroidism Malaria (~2007) Measles Melanoma Melanoma, choroid Migraines Mumps Nevus (~2012) Osteopenia (~2018) Osteoporosis (~2018) Sinusitis Thoracic radiculopathy due to intervertebral disc disorder Vision disorder Surgical History Anesthesia History of hysterectomy for benign disease (~1995) History of toe surgery (~2012) History of tonsillectomy (~1956) Family & Social History Family History Father Leukemia Mother History of heart disease Hypertension Brother History of heart disease Hyperlipidemia Hypertension Grandfather Cancer Grandmother Pneumonia Safety & Behavioral: Feels Safe in Current Yes Environment Been Physically Hurt or No Threatened By a Person Tobacco & Substance use: Smoking Status Former smoker alcohol intake former alcohol intake frequency other Substance Use Type does not use Meds Home Medications and Allergies Home Medications Medication Instructions Recorded Confirmed Type cyanocobalamin (vitamin B-12) 5,000 mcg SUBLINGUAL QDAY #0 09/04/16 03/12/21 History 5,000 mcg sublingual tablet (Vitamin B-12) vitamins A,C,F-hjvx-cdumai 14,320 1 cap PO QDAY #0 09/04/16 03/12/21 History unit-226 mg-200 unit capsule (PreserVision AREDS) vitamin E 400 unit capsule 800 unit PO DAILY 12/14/18 03/12/21 History ascorbate calcium (vitamin C) 500 1,300 mg PO DAILY tab 08/29/19 03/12/21 History mg tablet boron 6 mg tablet 15 mg PO tab 08/29/19 03/12/21 History magnesium citrate 125 mg capsule 250 mg PO DAILY 08/29/19 03/12/21 History vitamin K2 40 mcg tablet See Rx Instructions PO DAILY tab 08/29/19 03/12/21 History zinc acetate PO 08/29/19 03/12/21 History liothyronine 5 mcg tablet 2.5 mcg PO BID #60 tab 01/10/21 03/12/21 Rx Levoxyl 100 mcg tablet 100 mcg PO DAILY #60 tab NS 05/18/21 Rx (levothyroxine) Allergies Allergy/AdvReac Type Severity Reaction Status Date / Time Penicillins [PENICILLINS] Allergy Unknown UNKNOWN - Verified 06/06/21 12:57 PATIENT WAS A CHILD WHEN IT HAPPENED acetaminophen [ACETAMINOPHEN] AdvReac Severe (PERCOCET) Verified 06/06/21 12:57 VOMITING ibuprofen [IBUPROFEN] AdvReac Severe SWELLING, Verified 06/06/21 12:57 ITCHING AND DISCHARGE FROM EYES morphine [MORPHINE] AdvReac Severe HIVES Verified 06/06/21 12:57 oxycodone [OXYCODONE] AdvReac Severe (PERCOCET) Verified 06/06/21 12:57 VOMITING meperidine [MEPERIDINE] AdvReac Intermediate (DEMEROL) Verified 06/06/21 12:57 HIVES hydrocodone [HYDROCODONE] AdvReac Mild (VICODIN) Verified 06/06/21 12:57 NAUSEA Review of Systems Review of Systems Narrative: 14 systems reviewed and negative aside from what is noted in HPI Exam Vital Signs (past 8 hours): - 06/06/21 12:30 06/06/21 12:56 06/06/21 13:00 Temperature 98.4 F Pulse Rate 66 72 69 Pulse Rate [Orthostatic Lying] Pulse Rate [Orthostatic Sitting] Pulse Rate [Orthostatic Standing] Respiratory Rate 17 22 13 Blood Pressure 125/70 Blood Pressure [Orthostatic Lying] Blood Pressure [Orthostatic Sitting] Blood Pressure [Orthostatic Standing] Pulse Oximetry 99 98 100 06/06/21 13:30 06/06/21 13:42 06/06/21 13:48 Temperature Pulse Rate 67 65 63 Pulse Rate [Orthostatic Lying] Pulse Rate [Orthostatic Sitting] Pulse Rate [Orthostatic Standing] Respiratory Rate 18 18 13 Blood Pressure 99/56 L 106/62 Blood Pressure [Orthostatic Lying] Blood Pressure [Orthostatic Sitting] Blood Pressure [Orthostatic Standing] Pulse Oximetry 100 100 06/06/21 13:52 06/06/21 13:54 06/06/21 13:57 Temperature Pulse Rate 67 72 Pulse Rate [Orthostatic Lying] 65 Pulse Rate [Orthostatic Sitting] 66 Pulse Rate [Orthostatic Standing] 66 Respiratory Rate 23 18 Blood Pressure 120/72 118/68 Blood Pressure [Orthostatic Lying] 106/62 Blood Pressure [Orthostatic Sitting] 120/72 Blood Pressure [Orthostatic Standing] 118/68 Pulse Oximetry 06/06/21 14:01 06/06/21 14:30 06/06/21 15:00 Temperature Pulse Rate 64 61 60 Pulse Rate [Orthostatic Lying] Pulse Rate [Orthostatic Sitting] Pulse Rate [Orthostatic Standing] Respiratory Rate 17 18 16 Blood Pressure 124/69 120/67 112/62 Blood Pressure [Orthostatic Lying] Blood Pressure [Orthostatic Sitting] Blood Pressure [Orthostatic Standing] Pulse Oximetry Oxygen Delivery Method Room Air Narrative Exam Narrative: GEN: no acute distress HEENT: moist mucous membranes, PERRL NECK: trachea midline, no JVD CV: regular rate and rhythm, no murmurs PULM: clear bilaterally, no wheezes, rhonchi, rales ABD: soft, nontender, nondistended, no organomegaly, normal bowel sounds EXT: warm and well perfused, no edema SKIN: no rashes noted NEURO: CN 2-12 intact, awake, alert oriented, 5/5 strength upper and lower extremities, no sensory deficits PSYCH: pleasant, cooperative Objective Labs Result Diagrams: 06/06/21 12:45 06/06/21 12:45 Labs: Laboratory Results - last 24 hr 06/06/21 06/06/2121 12:45 12:45 12:45 WBC 5.1 RBC 4.63 Hgb 13.6 Hct 41.2 MCV 89.2 MCH 29.3 MCHC 32.9 RDW 14.3 Plt Count 207 Neut % (Auto) 57.0 Lymph % (Auto) 30.6 [place] % (Auto) 9.5 Eos % (Auto) 2.1 Baso % (Auto) 0.8 Neut # (Auto) 2900 Lymph # (Auto) 1500 [place] # (Auto) 500 Eos # (Auto) 100 Baso # (Auto) 0 PT 10.9 INR 1.0 APTT 29 Sodium Potassium Chloride Carbon Dioxide BUN Creatinine Estimated GFR BUN/Creatinine Ratio Glucose Calcium Total Creatine Kinase 34 CK-MB (CK-2) TNP CK-MB (CK-2) Rel Index TNP Troponin I < 0.012 Ethyl Alcohol < 10 SARS-CoV-2 (PCR) 06/06/21 06/06/21 12:45 13:46 WBC RBC Hgb Hct MCV MCH MCHC RDW Plt Count Neut % (Auto) Lymph % (Auto) [place] % (Auto) Eos % (Auto) Baso % (Auto) Neut # (Auto) Lymph # (Auto) [place] # (Auto) Eos # (Auto) Baso # (Auto) PT INR APTT Sodium 139 Potassium 4.3 Chloride 105 Carbon Dioxide 28 BUN 17 Creatinine 1.05 H Estimated GFR 51.4 L BUN/Creatinine Ratio 16.2 Glucose 105 Calcium 9.2 Total Creatine Kinase CK-MB (CK-2) CK-MB (CK-2) Rel Index Troponin I Ethyl Alcohol SARS-CoV-2 (PCR) Negative Assessment & Plan Assessment & Plan narrative: Ms. Dejesus is a 71W with PMH hypothyroidism who presents with lightheadedness and right leg numbness. 1. Probable TIA -patient's symptoms now resolved in ED -did get aspirin in ED -continue plavix -CT head and CTA head/neck negative for acute process -ordered for MRI brain -ordered for ECHO -continue telemetry -ordered for orthostatics -consider outpatient cardiac monitoring -check lipids, a1c -ordered for PT/OT 2. Michael's thyroiditis with hypothroidism -continue home thyroid medications CODE: Full Proxy: Becki Potter, sister I have utilized all resources to reconcile the patient's medications. Time Spent With Patient Critical Care time: I spent a total of [] minutes of critical care time on this patient's care today; this time is exclusive of procedural time. Quality MIPS - Admit I confirm the patient?s Advance Care Plan is present, Code status is documented, Surrogate decision maker is in patient?s record [If Yes, STOP here]: Yes
--- NOTE | 2021-06-06 16:21 | DI.ECHO.S_ITS ---
[facility] +---------+ [facility] +---------+ : : [address] : : : : [id number] : : : : Phone: [phone]---------+ Echocardiogram Report + + :Name: CHICO DELONG Study Date: 06/06/2021 Height: 66 in : :[facility] ReadingLocation: Weight: 159 lb : : Gender: Female BSA: 1.8 m2 : :: 1950 Age: 71 yrs BP: 123/63 mmHg: :Reason For Study: Question CVA, dizziness : : Performed By: Donnell Lemos : :Referring: THOMAS MILLER : + + Interpretation Summary The patient was in normal sinus rhythm during the exam. The left ventricle is normal in size and wall thickness. The ejection fraction is estimated to be 60-65%. There has been no significant change in LVEF since the previous exam. There is no LV thrombus. The right ventricle is normal in size and function. There is mild to moderate tricuspid regurgitation. Compared to the prior echo exam, there has been an increase in TR severity. The right ventricular systolic pressure is estimated to be at least 27 mmHg based on an estimated right atrial pressure of 3 mm Hg. Procedure: A two-dimensional transthoracic echocardiogram with color flow and Doppler was performed. The study quality was technically adequate. Comparison is made with the echocardiogram of 07/29/2019. The patient was in normal sinus rhythm during the exam. Left Ventricle: The left ventricle is normal in size and wall thickness. There is no thrombus. The ejection fraction is estimated to be 60-65%. There has been no significant change since the previous exam. There are no focal wall motion abnormalities. Diastolic parameters suggest a relaxation abnormality of the left ventricle, consistent with probable normal filling pressures. Right Ventricle: The right ventricle is normal in size and function. Atria: The left atrial size is normal. The right atrium is mildly dilated. A prominent eustachian valve is noted. The atrial septum is aneurysmal. There is no Doppler evidence for an interatrial shunt. Mitral Valve: The mitral valve leaflets are slightly calcified. There is mild mitral regurgitation. Compared to the prior echo study, there has been no change in the severity of mitral regurgitation. Aortic Valve: The aortic valve is trileaflet. The aortic valve opens well. The aortic valve is slightly calcified. There is no aortic valve stenosis. There is mild aortic regurgitation. Compared to the prior echo study, there has been no change in the severity of aortic regurgitation. Tricuspid Valve: The tricuspid valve is normal. There is mild to moderate tricuspid regurgitation. The right ventricular systolic pressure is estimated to be at least 27 mmHg based on an estimated right atrial pressure of 3 mm Hg. Compared to the prior echo exam, there has been an increase in TR severity. Pulmonic Valve: The pulmonic valve leaflets are thin and pliable; valve motion is normal. There is trace pulmonic regurgitation. Great Vessels: The aortic root is normal size. The ascending aorta is normal in size. The aortic arch is normal in size. The IVC is of normal diameter and collapses greater than 50% with a sniff. This suggests a low right atrial pressure of 3 mm Hg. Pericardium/ Pleura There is no pericardial effusion. There is an anterior echo-free space consistent with a fat pad. There is no pleural effusion. MMode/2D Measurements & Calculations LVIDd: 4.5 cm LVOT diam: 1.7 cm LVIDs: 3.0 cm Ao root diam: 3.1 cm FS: 33.9 % asc Aorta Diam: 3.5 cm IVSd: 0.69 cm Ao Arch Diam (Prox Trans): 2.9 cm LVPWd: 0.93 cm LV doan. diameter/BSA (cm/m^2): 2.5 LV sys. diameter/BSA (cm/m^2): 1.6 LA A2 area: 19.8 cm2 RA long axis: 5.1 cm LA A4 area: 18.8 cm2 RA area: 16.5 cm2 LA length (vol): 5.7 cm RA vol: 45.7 ml LA vol: 55.8 ml RA : 25.2 ml/m2 LA vol index: 30.7 ml/m2 TAPSE: 2.6 cm Doppler Measurements & Calculations Ao V2 max: 122.4 cm/sec LVOT Max Cheikh: 118.3 cm/sec Ao V2 mean: 89.3 cm/sec LV V1 max P.6 mmHg Ao max P.0 mmHg LV V1 VTI: 28.5 cm Ao mean P.5 mmHg SHAWN(I,D): 2.0 cm2 Ao V2 VTI: 30.2 cm SHAWN(V,D): 2.1 cm2 sev ratio: 0.94 SHAWN indexed to BSA (cm^2/m^2): 1.1 MV E max cheikh: 61.3 cm/sec TR max cheikh: 244.3 cm/sec MV A max cheikh: 86.4 cm/sec TR max P.9 mmHg MV E/A: 0.71 Med Peak E' Cheikh: 6.8 cm/sec E/E' med: 9.0 Lat Peak E' Cheikh: 8.4 cm/sec E/E' lat: 7.3 E/e' average: 8.1 MV dec time: 0.24 sec SV(LVOT): 61.3 ml Reading Physician:05:25 PM
[2021-06-06] MEDS: ATORVASTATIN 20 MG TABLET 80 MG PO (21:19)
[2021-06-06] MEDS: LACTATED RINGERS 1,000 ML 1000 ML IV (21:20)
[2021-06-07 00:43] VITALS: BP 111/59; BP 112/71; BP 137/62; PULSE 65; PULSE 69; PULSE 81
[2021-06-07 01:05] VITALS: BP 111/59; PULSE 65; RESP 16; TEMP 36.9; O2SAT 98
[2021-06-07] MEDS: LACTATED RINGERS 1,000 ML 1000 ML IV ×2 (04:52→07:05)
[2021-06-07 04:59] VITALS: PULSE 65; RESP 14; TEMP 36.7; O2SAT 95
--- NOTE | 2021-06-07 05:43 | PC.NURSE ---
Hypotensive, 87/48, MAP 63. Patient reports dizziness and headache. Patient placed in trendelenberg position. LIMA Larios notified and received order for 1 L LR bolus. After bolus BP 112/71, MAP 84. Patient asymptomatic.
[2021-06-07] MEDS: LIOTHYRONINE 5 MCG TABLET 2.5 MCG PO (06:08)
[2021-06-07 06:34] LABS: UR Morphine/Opiate cutoff 300 Negative (Negative); Ur Creatinine 20 (Normal); Ur Specific Gravity 1.025 (Normal); Urine Amphetamines Negative (Negative); Urine Barbiturates Negative (Negative); Urine Benzodiazepines Negative (Negative); Urine Cocaine Negative (Negative); Urine MDMA Negative (Negative); Urine Methadone Negative (Negative); Urine Methamphetamines Negative (Negative); Urine Oxycodone Negative (Negative); Urine Phencyclidine Negative (Negative); Urine Tetrahydrocannabinol Negative (Negative); Urine Tricyclic Antidepressant Negative (Negative); Urine pH 5 (Normal)
[2021-06-07 06:44] LABS: Add Manual Diff / Slide Review NO; Basophils Absolute Auto 100 /uL (0-100); Basophils Percent Auto 3.3 % (0-2); Eosinophils Absolute Auto 200 /uL (0-450); Eosinophils Percent Auto 3.9 % (2-4); Hematocrit 37.6 % (36-46); Hemoglobin 12.4 g/dL (12.0-16.0); Lymphocytes Absolute Auto 1200 /uL (1100-4500); Lymphocytes Percent Auto 30.1 % (25-40); Mean Corpuscular HGB Conc 32.9 % (30-36); Mean Corpuscular Hemoglobin 29.5 PG (26-34); Mean Corpuscular Volume 89.9 fL (80-100); Monocytes Absolute Auto 400 /uL (0-900); Monocytes Percent Auto 11.3 % (3-14); Neutrophils Absolute Auto 2000 /uL (1500-7000); Neutrophils Percent Auto 51.4 % (50-75); Platelet Count 178 X10^3/uL (150-400); Red Blood Cell Count 4.18 X10^6/uL (4.0-5.2); White Blood Cell Count 3.9 X10^3/uL (4.5-11.0)
[2021-06-07 06:55] LABS: BUN Creatinine Ratio 14.4 (6-22); Blood Urea Nitrogen 13 mg/dL (7-17); Calcium 8.8 mg/dL (8.4-10.2); Carbon Dioxide 29 mmol/L (22-32); Chloride 108 mmol/L (98-107); Cholesterol 183 mg/dL (140-199); Estimated Glomerular Filt Rate > 60.0 mL/min (>60); Glucose 89 mg/dL (80-110); HDL Cholesterol 40 mg/dL (40-60); HEMOLYSIS < 15 (0-50); LDL Cholesterol Calculated 127 mg/dL (<100); Potassium 4.2 mmol/L (3.4-5.1); Sodium 140 mmol/L (137-145); Triglycerides 79 mg/dL (35-150)
[2021-06-07 06:58] LABS: Hemoglobin A1C% w Est Avg Glu 5.1 % (4.0-6.0)
[2021-06-07 07:00] VITALS: BP 94/54; PULSE 60; RESP 16; O2SAT 98
[2021-06-07 07:25] LABS: Cortisol AM (Before 10AM) 5.05 ug/dL (4.46-22.7)
[2021-06-07 08:00] VITALS: BP 117/66; PULSE 61; RESP 18; TEMP 36.7; O2SAT 98
[2021-06-07 08:49] LABS: TSH w/ Reflex to FT4 < 0.02 uIU/mL (0.47-4.68)
[2021-06-07] MEDS: CLOPIDOGREL 75 MG TABLET PO (08:49)
[2021-06-07 09:13] LABS: Free T4, Direct Thyroxine 1.87 ng/dL (0.78-2.19)
--- NOTE | 2021-06-07 09:30 | OT.IP.EVAL ---
Past Medical History (Last Reviewed 06/06/21 @ 15:53 by Jimmy Puckett MD) Cataracts, bilateral Chicken pox Choroidal nevus of right eye (~2012) Endometriosis Fibroids Michael's thyroiditis History of hysterectomy for benign disease (~1995) History of toe surgery (~2012) History of tonsillectomy (~1956) Hyperlipidemia Hypothyroidism Malaria (~2007) Measles Melanoma Melanoma, choroid Migraines Mumps Nevus (~2012) Osteopenia (~2018) Osteoporosis (~2018) Sinusitis Thoracic radiculopathy due to intervertebral disc disorder Vision disorder Surgical History (Last Reviewed 06/06/21 @ 15:53 by Jimmy Puckett MD) Anesthesia History of hysterectomy for benign disease (~1995) History of toe surgery (~2012) History of tonsillectomy (~1956) Occupational Therapy Inpatient Evaluation/Re-Eval M3 OT- IP Subjective and Pain Start: 06/07/21 11:56 Freq: Status: Active Protocol: Document 06/07/21 11:57 [facility] (Rec: 06/07/21 12:04 [facility] [id number]) OT- Subjective Occupational Therapy Visit Type Type Initial Evaluation Visit Start Time 09:15 Visit Stop Time 09:30 Total Visit Minutes 15 Occupational Therapy Visit Comments Patient Comments Pt agreed to do OT eval. Patient/Caregiver Goals To go home. OT Pain Assessment Pain When Pain Assessed At Rest Pain Present Pain Present Denied Pain M4 OT- IP ADL's Start: 06/07/21 11:56 Freq: Status: Active Protocol: Document 06/07/21 11:57 [facility] (Rec: 06/07/21 12:04 [facility] [id number]) OT [id number] General Evaluation Self-Feeding Ability Independent OT ADL-Grooming General Evaluation Grooming Ability Independent OT ADL-Oral Care General Eval Oral Care Ability Independent OT ADL-Dressing General Eval Lower Body Dressing Ability Standby Assistance Comments OT Dressing Comments SBA when standing on left foot to melba her sock and had a loss of balance. Pt states will either lean on a surface or sit for her socks. OT ADL-Toileting Comments OT Toileting Comments Pt states has been independently using the bathroom while in her room. M5 OT- IP IADL's Start: 06/07/21 11:56 Freq: Status: Active Protocol: Document 06/07/21 11:57 [facility] (Rec: 06/07/21 12:04 [facility] [id number]) OT-Instrumental Activities of Daily Living Home Safety Awareness Awareness of Need for Assistance at Home Good Awareness Ability to Problem Solve Emergency Able to Problem Solve Situations Medication Management Medication Management No Deficits Identified Money Management Money Management No Deficits Identified M6 OT- IP Functional Cognition Start: 06/07/21 11:56 Freq: Status: Active Protocol: Document 06/07/21 11:57 [facility] (Rec: 06/07/21 12:04 [facility] [id number]) Cognitive Factors Limiting Selfcare Function Cognitive Ability Level of Alertness Alert Patient Orientation Name,Age,Birthday,Month,Date, Year,Day of Week,Place, Situation Attention Span Ability Capable of Focused Attention, Capable of Sustained Attention Ability to Follow Commands Able to Follow Multi-Step Commands Memory Description No Deficits Noted Safety Awareness No Deficits Noted Problem Solving Ability No deficits Noted Cognitive Comments Cognitive Assessment Comments Pt appears at baseline for her cognitive needs. Pt scored 59 seconds on [place] making Part B which implies normal for visual attention, speed of processing, task switching, mental flexibility and executive functioning. OT- Vision and Hearing OT- Hearing Assessment OT- Hearing Assessment WFL OT- Vision Assessment Visual Acuity Glasses For Reading M7 OT- IP Mobility and Balance Start: 06/07/21 11:56 Freq: Status: Active Protocol: Document 06/07/21 11:57 [facility] (Rec: 06/07/21 12:04 [facility] [id number]) OT- Bed Mobility Assessment Supine to Sit Supine to Sit Assist Independent Sit to Supine Sit to Supine Assist Independent Scooting Scooting to Edge of Bed Independent Scooting Up and Down in Bed Independent OT-Transfer Assessment Sit to and From Stand Sit to and from Stand Independent Transfers Transfer Ability Independent Technique Transfer Destination Bed Devices Transfer Assistive Devices Gait Belt Comments Mobility Comments Pt independent for mobility in the room. OT- Balance Assessment Sitting Balance and Reactions Static Sitting Balance Ability Normal Dynamic Sitting Balance Ability Normal Standing Balance and Reactions Static Standing Balance Ability Normal Dynamic Standing Balance Ability Fair M8 OT- IP Objective Assessments Start: 06/07/21 11:56 Freq: Status: Active Protocol: Document 06/07/21 11:57 [facility] (Rec: 06/07/21 12:04 [facility] [id number]) OT Gross Range of Motion Upper Extremity Range of Motion Assessment Within Functional Limits OT Strength Upper Extremity Strength Assessment Within Functional Limits OT- Coordination Assessment Upper Extremity Finger to Nose Test Within Functional Limits M9 OT- IP Assessment and Plan Start: 06/07/21 11:56 Freq: Status: Active Protocol: Document 06/07/21 11:57 [facility] (Rec: 06/07/21 12:04 [facility] [id number]) OT Summary Assessment and Plan Potential Rehabilitation Potential Excellent Analytic Complexity at Evaluation Low Summary OT Impairments Balance Progress Towards Goals Progressing Toward Goals Assessment Summary Pt low complexity and here due to TIA and pt feels back to her baseline for all her needs. Pt to go home when medically stable. Goals Bathing Goal Independent Frequency of Treatment Frequency Of Treatment Once a Day Treatment Plan OT Treatment Plan ADL Training,Patient/Family Education,Discharge Planning Other Treatment Recommendations and Next Shower if still here. Treatment Focus Discharge Recommendations OT Discharge Recommendations Home Transportation Needs at Discharge Private Vehicle
--- NOTE | 2021-06-07 09:30 | PT.IIE ---
Surgical History (Last Reviewed 06/06/21 @ 15:53 by Jimmy Puckett MD) Anesthesia Medical History (Last Reviewed 06/06/21 @ 15:53 by Jimmy Puckett MD) Cataracts, bilateral Chicken pox Choroidal nevus of right eye (~2012) Endometriosis Fibroids Michael's thyroiditis Hyperlipidemia Hypothyroidism Malaria (~2007) Measles Melanoma Melanoma, choroid Migraines Mumps Nevus (~2012) Osteopenia (~2019) Osteoporosis (~2019) Sinusitis Thoracic radiculopathy due to intervertebral disc disorder Vision disorder Physical Therapy Inpatient Evaluation/Re-Eval M1 PT/OT-IP Prior Functional Status Start: 06/07/21 13:06 Freq: NEEDED Status: Active Protocol: Document 06/07/21 09:30 [facility] (Rec: 06/07/21 13:15 AB [id number]) Medical Review Prior Functional Status Medical History Reviewed Yes Communication able to make needs known Mobility and Gait pt stated that she is independent with all mobilities and ambulation without AD Social History Household Members none Living Arrangements House Number of Floors (Floors) One Floor Number of Stairs To Enter/Railing? no steps to enter Home Environment Standard Height Toilet,Tub/ Shower Additional Social History Comment has walking sticks to use if needed M2 PT-IP Current Condition Start: 06/07/21 13:06 Freq: NEEDED Status: Active Protocol: Document 06/07/21 09:30 [facility] (Rec: 06/07/21 13:15 AB [id number]) Physical Therapy Current Condition Current Condition Evaluation Date 06/07/21 Treatment Diagnosis TIA; difficulty in walking Onset Date 06/06/21 M3 PT-IP Subjective Start: 06/07/21 13:06 Freq: NEEDED Status: Active Protocol: Document 06/07/21 09:30 [facility] (Rec: 06/07/21 13:15 AB [id number]) Subjective Physical Therapy Visit Type Type Initial Evaluation Visit Start Time 09:30 Visit Stop Time 09:55 Total Visit Minutes 25 Number of CREW CHIEF Visits 0 Physical Therapy Visit Comments Patient Comments agreeable to do PT Therapy Pain Assessment Pain Present Pain Present Denied Pain M4 PT-IP Mobility and Gait Start: 06/07/21 13:06 Freq: NEEDED Status: Active Protocol: Document 06/07/21 09:30 [facility] (Rec: 06/07/21 13:15 AB [id number]) PT-Bed Mobility Assessment Supine to Sit Supine to Sit Independent Sit to Supine Sit to Supine Independent PT-Transfer Assessment Sit to and From Stand Sit to and from Stand Independent Equipment Orthotic/Prosthetic Devices or Brace: No Transfers Transfer Destination Chair Transfer Technique ambulated Transfer Ability Level of Assist Independent Comments Mobility Comments BP supine: 109/55. pt completed bed mobility independent. BP in sittin/72. pt ambulated in the hallway without AD SBA for safety. c/o dizziness/nausea midway ambulation. pt stated that it might be due to the medications she has just taken a few minutes ago. ambulated back to the room and pt sat on chair. BP checked: 127/55. positioned pt on chair. call light and table placed within reach. Gait Assessment Gait Gait Assistance Required: Standby Assistance Distance (Feet) 250 Able to Maintain Weight Bearing Status Yes During Gait Assistive Devices Assistive Device None Orthotic/Prosthetic Devices or Brace: No Factors Limiting Gait Function Factors Limiting Gait Function Decreased Activity Tolerance PT-Balance Assessment Sitting Balance and Reactions Static Sitting Balance Ability Normal Dynamic Sitting Balance Ability Normal Standing Balance and Reactions Static Standing Balance Ability Good Dynamic Standing Balance Ability Good Device Used without AD M5 PT-IP Objective Assessments Start: 06/07/21 13:06 Freq: NEEDED Status: Active Protocol: Document 06/07/21 09:30 [facility] (Rec: 06/07/21 13:15 AB [id number]) Orientation Orientation/Cognition Level of Alertness Alert Orientation Name,Age,Birthday,Month,Date, Year,Day of Week,Place, Situation Language Function Ability No Deficits Noted Safety Awareness Understands Safety Issues Memory Description No Deficits Noted Gross Range of Motion Lower Extremity ROM Assessment Within Functional Limits Strength Lower Extremity Strength Assessment Within Functional Limits Coordination Assessment Gross Coordination Gross Coordination WNL Sensation Assessment Sensation Gross Sensation WNL Muscle Tone Muscle Tone WNL Yes M6 PT-IP Treatment Start: 06/07/21 13:06 Freq: NEEDED Status: Active Protocol: Document 06/07/21 09:30 [facility] (Rec: 06/07/21 13:15 AB [id number]) Physical Therapy Treatment Education Education Provided Safety M7 PT-IP Assessment and Plan Start: 06/07/21 13:06 Freq: NEEDED Status: Active Protocol: Document 06/07/21 09:30 [facility] (Rec: 06/07/21 13:15 AB [id number]) PT Summary Assessment and Plan Potential Rehabilitation Potential Good Status of Condition at Evaluation Stable Summary Impairments Pain,ROM,Strength,Balance, Coordination,Sensation,Tone, Cognition,Bed Mobility, Transfers,Gait,Activity Tolerance Assessment Summary PT eval completed. pt is independent with bed mobility SBA for ambulation without AD for safety but pt did not have any LOB and is steady with gait. No further PT intervention indicated at this time. Pt may go home when medically stable. Frequency of Treatment Frequency Of Treatment Discharge Recommendations To Nursing Amount of Assist Needed Standby Assistance Discharge Recommendations PT Discharge Recommendations Home Transportation Needs at Discharge Private Vehicle
--- NOTE | 2021-06-07 09:52 | PC.NURSE ---
Addendum entered by Sobia Herrera R.N. 06/07/21 13:44: Patient given discharge instructions regarding f/u appointment, medications and s/s of TIA or worsening condition. Patient verbalized understanding. Pharmacy able to provide further medication instruction. Patient's IV removed, patient's tele removed. Patient discharged via wheelchair to friends waiting car. Original Note: Patient A/O x 3, denies SOB, dizziness, numbness, tingling, [place], or difficulty finding words. NIH 0. Bolus complete. Saline locked. Lungs CTA, on RA. Reports mild chest discomfort, according to patient this happens periodically, denies radiating pain to arm or jaw or nausea. Remains on Tele. Patient voiding w/o complication. Denies Abd pain, N/V. Patient refusing SCD's due to wanting to get OOB freely. Education provided. Patient denies further needs at this time. Call light in reach.
--- NOTE | 2021-06-07 13:59 | CM.DANOTE ---
DCP assessment: Patient is a 71 yr old female who was admitted for dizziness and possible TIA. Patients PCP is Dr Magalie Zapata. Patient currently lives alone but has a sister that lives in [facility]. She is Independent with all ADLs and drives at baseline. Patient states she has no needs at home at this time. CM Spoke with OT they argee that patient home no needs at this time. I: Medicare and AARP P: DC home no DC planning needs identified at this time. Dinah Hale Discharge Planning/Care Management CM Discharge Assessment Start: 06/07/21 13:06 Freq: Status: Discharge Protocol: Document 06/07/21 13:06 HS (Rec: 06/07/21 13:59 HS [id number]) Discharge Planning Assessment Assigned Digital Retoucher Dinah Barksdale RN Case Geoffrey DPOA/Assigned Designee Name Becki Potter Contact Information [phone] Advance Directives? No History Provided By Medical Record Prior Living Arrangements House Household Members none Type of transporation used prior to Drives own vehicle admit Independent with ADL's Yes Is patient alert and oriented? Yes Caregiver for Another No DME Already Rented / Owned FWW / Walker Barriers to Discharge No Discharge Plan Home Referrals Initiated None needed Review Status In Process Next Review Type Continued Stay Review
--- NOTE | 2021-06-07 14:03 | PM.DS.1 ---
History of Present Illness History of Present Illness Chief complaint: dizziness Narrative: 71W with PMH of hypothyroidism who presents with acute dizziness and right leg numbness. She was in her normal state of health, had been quite active prior. She noted at 11:45 today she sat down for Bible study and then felt as if her head was swimming. She had nausea and head pressure. She had difficulty in finding the right words. She had lower right leg numbness. This resolved by the time I saw her in the ED. She had no dysarthria. She was ambulating well. She had no weakness in her extremities. In the ED workup was done, vitals were unremarkable. Labs notable for WBC 5.1, hgb 13.6, plts 207. INR 1.0. troponin negative, etoh negative. BUN 17, creatinine 1.05. CT head showed no acute process. CTA head/neck showed no acute process. She was given full dose aspirin. Telestroke consulted and determined no indication for tpa. She was admitted for further treatment. Discharge Providers Provider Date of admission: 06/06/21 15:15 Discharge Date: 06/07/21 Primary care physician: Nela Zapata DO Consults: 06/06/21 16:21 Consult to Discharge Planning Routine Comment: Consult to Occupational Therapy Evaluate & Treat Comment: Physician Instructions: Evaluate and treat Consult to Physical Therapy Evaluate & Treat Comment: Physician Instructions: Evaluate and Treat Discharge provider: Jimmy Puckett MD Summary Hospital Course Discharge Diagnosis: 1. Probable TIA 2. Hypotension 3. Old CVA 4. Michael's thyroiditis, hypothyroidism Hospital Course: Ms. Dejesus was admitted with lightheadedness and right leg numbness. This resolved without intervention. CT head and CTA head/neck showed no acute process. MRI head showed old CVA. She was started on aspirin and statin. She had an ECHO that showed no acute process. She overnight on 06/06-06/07 had mild hypotension and received IV fluid boluses. She was monitored on 06/07 and had no further hypotension and was asymptomatic and was able to be discharged. Lipids showed mildly elevated LDL, A1c normal. Exam Vital Signs (past 8 hours): - 06/07/21 07:00 06/07/21 08:00 Temperature 98.1 F Pulse Rate 60 61 Respiratory Rate 16 18 Blood Pressure 94/54 L 117/66 Pulse Oximetry 98 98 Oxygen Delivery Method Room Air Oxygen Flow Rate 0 Narrative Exam Narrative: GEN: no acute distress HEENT: moist mucous membranes, PERRL NECK: trachea midline, no JVD CV: regular rate and rhythm, no murmurs PULM: clear bilaterally, no wheezes, rhonchi, rales ABD: soft, nontender, nondistended, no organomegaly, normal bowel sounds EXT: warm and well perfused, no edema SKIN: no rashes noted NEURO: CN 2-12 intact, awake, alert oriented, 5/5 strength upper and lower extremities, no sensory deficits PSYCH: pleasant, cooperative Objective Labs Result Diagrams: 06/07/21 06:10 06/07/21 06:10 Labs: Laboratory Results - last 24 hr 06/06/21 06/07/21 06/07/21 13:46 06:10 06:10 WBC 3.9 L RBC 4.18 Hgb 12.4 Hct 37.6 MCV 89.9 MCH 29.5 MCHC 32.9 RDW 14.0 Plt Count 178 Neut % (Auto) 51.4 Lymph % (Auto) 30.1 Crowley % (Auto) 11.3 Eos % (Auto) 3.9 Baso % (Auto) 3.3 H Neut # (Auto) 2000 Lymph # (Auto) 1200 Crowley # (Auto) 400 Eos # (Auto) 200 Baso # (Auto) 100 Sodium 140 Potassium 4.2 Chloride 108 H Carbon Dioxide 29 BUN 13 Creatinine 0.90 Estimated GFR > 60.0 BUN/Creatinine Ratio 14.4 Glucose 89 Hemoglobin A1c Calcium 8.8 Triglycerides 79 Cholesterol 183 LDL Cholesterol, Calc 127 H HDL Cholesterol 40 TSH Free T4 Cortisol AM Sample U Opiates 300ng/mL cut Ur Oxycodone Screen Urine Methadone Screen Ur Barbiturates Screen U Tricyclic Antidepress Ur Phencyclidine Scrn Ur Amphetamines Screen U Methamphetamines Scrn Ur MDMA Scrn (Ecstasy) U Benzodiazepines Scrn Urine Cocaine Screen U Marijuana (THC) Screen SARS-CoV-2 (PCR) Negative 06/07/21 06/07/21 06/07/21 06:10 06:10 06:10 WBC RBC Hgb Hct MCV MCH MCHC RDW Plt Count Neut % (Auto) Lymph % (Auto) Crowley % (Auto) Eos % (Auto) Baso % (Auto) Neut # (Auto) Lymph # (Auto) Crowley # (Auto) Eos # (Auto) Baso # (Auto) Sodium Potassium Chloride Carbon Dioxide BUN Creatinine Estimated GFR BUN/Creatinine Ratio Glucose Hemoglobin A1c 5.1 Calcium Triglycerides Cholesterol LDL Cholesterol, Calc HDL Cholesterol TSH < 0.02 L Free T4 1.87 Cortisol AM Sample 5.05 U Opiates 300ng/mL cut Ur Oxycodone Screen Urine Methadone Screen Ur Barbiturates Screen U Tricyclic Antidepress Ur Phencyclidine Scrn Ur Amphetamines Screen U Methamphetamines Scrn Ur MDMA Scrn (Ecstasy) U Benzodiazepines Scrn Urine Cocaine Screen U Marijuana (THC) Screen SARS-CoV-2 (PCR) 06/07/21 06:25 WBC RBC Hgb Hct MCV MCH MCHC RDW Plt Count Neut % (Auto) Lymph % (Auto) Crowley % (Auto) Eos % (Auto) Baso % (Auto) Neut # (Auto) Lymph # (Auto) Crowley # (Auto) Eos # (Auto) Baso # (Auto) Sodium Potassium Chloride Carbon Dioxide BUN Creatinine Estimated GFR BUN/Creatinine Ratio Glucose Hemoglobin A1c Calcium Triglycerides Cholesterol LDL Cholesterol, Calc HDL Cholesterol TSH Free T4 Cortisol AM Sample U Opiates 300ng/mL cut Negative Ur Oxycodone Screen Negative Urine Methadone Screen Negative Ur Barbiturates Screen Negative U Tricyclic Antidepress Negative Ur Phencyclidine Scrn Negative Ur Amphetamines Screen Negative U Methamphetamines Scrn Negative Ur MDMA Scrn (Ecstasy) Negative U Benzodiazepines Scrn Negative Urine Cocaine Screen Negative U Marijuana (THC) Screen Negative SARS-CoV-2 (PCR) [facility] Medical History Cataracts, bilateral Chicken pox Choroidal nevus of right eye (~2012) Endometriosis Fibroids Michael's thyroiditis Hyperlipidemia Hypothyroidism Malaria (~2007) Measles Melanoma Melanoma, choroid Migraines Mumps Nevus (~2012) Osteopenia (~2018) Osteoporosis (~2018) Sinusitis Thoracic radiculopathy due to intervertebral disc disorder Vision disorder Surgical History Anesthesia History of hysterectomy for benign disease (~1995) History of toe surgery (~2012) History of tonsillectomy (~1956) Family History Father Leukemia Mother History of heart disease Hypertension Brother History of heart disease Hyperlipidemia Hypertension Grandfather Cancer Grandmother Pneumonia Social History household members: none Smoking Status: Former smoker Tobacco: How many years used: 7 second hand exposure: Yes (in the past when everyone smoked at their desk.) alcohol intake: former substance use type: does not use Discharge Plan Discharge Plan Patient Disposition: Home Provider Discharge Comment: Ms. Dejesus came in with dizziness and right leg numbness. She was found to have an old stroke on MRI scan. She likely had a TIA. She was started on aspirin and statin to help reduce the risk of stroke in the future. She should follow up with her PCP within 1-2 weeks. Discharge orders & Medications Prescriptions: New aspirin 81 mg capsule 81 mg PO DAILY Qty: 30 0RF atorvastatin 40 mg tablet 40 mg PO BEDTIME Qty: 30 0RF Continued boron 6 mg tablet 15 mg PO DAILY 0RF vitamin K2 40 mcg tablet See Rx Instructions PO DAILY 0RF Rx Instructions: 83811 mcg PO daily; magnesium citrate 125 mg capsule 250 mg PO DAILY 0RF PreserVision AREDS 1 EACH capsule 1 cap PO QDAY Qty: 0 0RF cyanocobalamin (vitamin B-12) [Vitamin B-12] 5,000 MCG tablet, sublingual 5,000 mcg Sublingual QDAY Qty: 0 0RF liothyronine 5 mcg tablet 2.5 mcg PO BID Qty: 60 1RF Rx Instructions: Start with 1/2 tab with synthroid in the morning. May add afternoon dose if necessary. levothyroxine [Levoxyl] 100 mcg tablet 100 mcg PO DAILY Qty: 60 1RF vitamin E 400 unit capsule 800 unit PO DAILY 0RF Follow up/Referrals: Nela Zapata DO [Primary Care Provider] - Diet/Activity/Treatments Diet: Regular Discharge Data Primary Care Provider: Nela Zapata Attending Provider: Jimmy Puckett VTE Deep Vein Thrombosis/Pulmonary Embolism Present on Admission: No MIPS - DC The patient has current or prior documentation of left ventricular ejection fraction (LVEF) less than 40%, or moderate or severely depressed left ventricular systolic function.: No
== END 2021-06-07 13:46 | disposition home or self-care (01) ==
LOC: ED 14:55 → AC 15:16
PROVIDERS: Nurse Practitioner Family; Admitting Provider Internal Medicine; Emergency Provider Emergency Medicine; PCP Family Medicine; Visit Provider Internal Medicine
DX: R42 Dizziness and giddiness (principal); R11.2 Nausea with vomiting, unspecified; E06.3 Autoimmune thyroiditis; E03.9 Hypothyroidism, unspecified; R20.0 Anesthesia of skin; I95.9 Hypotension, unspecified; Z86.73 Personal history of transient ischemic attack (TIA), and cerebral infarction without residual deficits; R29.701 NIHSS score 1; Z20.822 Contact with and (suspected) exposure to COVID-19
CPT/HCPCS: 36415; 70450; 70496; 70498; 70551; 80048; 80061; 80305; 80320; 81003; 82533; 82550; 83036; 84439; 84443; 84484; 85025; 85610; 85730; 87635; 93005; 93010; 93306; 96360; 96361; 97161; 97165; 99285; C9803; G0378

== ENCOUNTER → 2021-07-04 15:49 | Outpatient (CLI) | payer MEDICARE, SELFPAY ==
[2021-06-12 15:36] VITALS: BMI 25.7
--- NOTE | 2021-07-25 09:29 | PM.CARDMON.1 ---
Senior Report Developer Report Referral & Results Date Patient Seen: 07/04/21 Requesting provider: Nela Zapata Indication: TIA Duration of monitoring (days): 14 Diary information: There was 1 patient triggered event and 1 patient diary entry to review. Both these events were associated with sinus rhythm only Data: Minimum heart rate identified was 51 beats per minute at 08:09 on 07/07/2021 Maximum sinus heart rate was 140 beats per minute at 22:40 on 07/10/2021 Maximum overall heart rate was 152 beats per minute at 19:05 on 07/09/2021 during a run of SVT/atrial tachycardia There were 8 runs of SVT/atrial tachycardia the longest lasting 8 beats and the fastest being the 7 beat run noted above Less than 1% of identified beats were ventricular or supraventricular ectopic in origin, which would classify them as rare. No pauses and no atrial fibrillation identified on this study Impression: Essentially normal 14 day personnel monitor with very rare and very brief runs of a supraventricular origin as above No etiology for transient cerebral ischemia identified on this study Clinical correlation suggested
== END ==
PROVIDERS: PCP Family Medicine; Referring Provider Family Medicine; Visit Provider Family Medicine
DX: I63.9 Cerebral infarction, unspecified (principal); G45.9 Transient cerebral ischemic attack, unspecified
CPT/HCPCS: 93246; 93248

== ENCOUNTER → 2021-07-18 09:41 | Outpatient (CLI) | payer MEDICARE, SELFPAY ==
[2021-06-12 15:36] VITALS: BMI 25.7
[2021-07-18 11:29] LABS: COVID19 -Nasal RAPID Negative (Negative)
== END ==
PROVIDERS: PCP Family Medicine; Visit Provider Family Medicine Sleep Medicine
DX: Z20.822 Contact with and (suspected) exposure to COVID-19 (principal)
CPT/HCPCS: 87635

== ENCOUNTER → 2021-07-18 09:43 | Outpatient (CLI) | payer MEDICARE, SELFPAY ==
[2021-06-12 15:36] VITALS: BMI 25.7
[2021-07-18 14:04] LABS: Free T3, Triiodothyronine Free 3.71 pg/mL (2.77-5.27); Free T4, Direct Thyroxine 1.68 ng/dL (0.78-2.19)
[2021-07-18 14:17] LABS: Thyroid Stimulating Hormone 0.016 uIU/mL (0.47-4.68)
--- NOTE | 2021-07-19 09:12 | PM.TREADMILL ---
Cardiac Stress Test Report Referral & Results Date Patient Seen: 07/19/21 Time Patient Seen: 09:00 Requesting provider: Nela Zapata Indication: TIA Rest ECG: NSR Procedure Note: Today following both written and verbal informed consent the patient was exercised according to a standard Topher protocol patient went for a total of 9 minutes achieving a maximum heart rate of 150 maximum systolic blood pressure of 160 for. This is approximately 10.1 METs. Exercise was terminated at this point because of fatigue. Patient was also given Cardiolite through a previously started Hep-Lock IV by the nuclear fuel processing technician approximately 1 minute prior to the cessation of exercise. Normal hemodynamic response to exercise. No signs or symptoms of angina, but lightheaded at peak exercise. No change in rhythm. No ST changes. Excellent exercise capacity (KWAME -20% on active scale). Impression: Low probability for ischemia. No rhythm problems. Perfusion imaging pending. Please note: Actual ECG tracings can be found in the PACS system.
--- NOTE | 2021-07-19 20:03 | DI.NM.S_ITS ---
DATE OF SERVICE: 07/18/2021 PROCEDURE: Exercise perfusion study. INDICATION: History of hyperlipidemia, family history of coronary artery disease, dizziness, TIA, CVA. RADIOPHARMACEUTICAL: 25.5 millicurie technetium-99m Myoview IV was injected at stress and 25.5 millicurie technetium-99m Myoview IV was injected at rest. CARDIAC STRESS: The patient underwent exercise perfusion study under the supervision of an attending staff. The patient walked on Topher protocol for 9 minutes. Achieved 102 percent of target heart rate with maximum heart rate 150. Baseline blood pressure 122/76 mmHg. Peak blood pressure 164/92 mmHg. Baseline rhythm was sinus. During stress, there were no convincing ischemic changes. No significant sustained arrhythmias. No anginal symptoms. RAW DATA: There is increased subdiaphragmatic activity. GATED STUDY: Stress LV ejection fraction 75 percent without any obvious wall motion abnormalities. Resting end-diastolic volume 72 mL. TID ratio 0.72, which is within normal limits. Lung/heart ratio 0.36, which is within normal limits. MYOCARDIAL PERFUSION SCAN: Stress supine, resting supine and stress prone images were compared to each other. There was normal myocardial perfusion. CONCLUSION: 1. This is a normal myocardial perfusion study. 2. Excellent exercise tolerance. The patient achieved 10.1 metabolic equivalents of workload. Normal hemodynamic response. 3. No significant arrhythmias or anginal symptoms. Overall, low-risk myocardial perfusion scan. Dejesus Olga Lidia - Alex/jacek doc#: [id number]/job#: [id number] dd: 07/19/2021 17:33:00 dt: 07/19/2021 19:44:00 DICTATING MD/COPIES TO: Rabia Gaemz MD COPIES MNE: HITESH;
== END ==
PROVIDERS: PCP Family Medicine; Referring Provider Family Medicine; Visit Provider Family Medicine
DX: I27.20 Pulmonary hypertension, unspecified (principal); I07.1 Rheumatic tricuspid insufficiency; R55 Syncope and collapse; I63.9 Cerebral infarction, unspecified; E06.3 Autoimmune thyroiditis; G45.9 Transient cerebral ischemic attack, unspecified; Z20.822 Contact with and (suspected) exposure to COVID-19; R53.83 Other fatigue; R42 Dizziness and giddiness; Z86.79 Personal history of other diseases of the circulatory system
CPT/HCPCS: 36415; 78452; 84439; 84443; 84481; 87635; 93016; 93017; 93018; C9803; A9502

== ENCOUNTER → 2021-09-20 12:14 | Outpatient (CLI) | payer MEDICARE, SELFPAY ==
[2021-06-12 15:36] VITALS: BMI 25.7
[2021-09-20 14:17] LABS: Free T3, Triiodothyronine Free 3.01 pg/mL (2.77-5.27); Free T4, Direct Thyroxine 1.48 ng/dL (0.78-2.19)
[2021-09-20 14:31] LABS: Thyroid Stimulating Hormone 0.438 uIU/mL (0.47-4.68)
== END ==
PROVIDERS: PCP Family Medicine; Referring Provider Family Medicine; Visit Provider Family Medicine
DX: E03.9 Hypothyroidism, unspecified (principal)
CPT/HCPCS: 36415; 84439; 84443; 84481

== ENCOUNTER → 2021-10-03 15:00 | Outpatient (CLI) | payer MEDICARE, SELFPAY ==
[2021-06-12 15:36] VITALS: BMI 25.7
[2021-10-03 16:43] LABS: COVID-19 CEPHEID PCR (VTM/NP) Negative (Negative)
== END ==
PROVIDERS: PCP Family Medicine; Referring Provider Internal Medicine; Visit Provider Internal Medicine
DX: Z20.822 Contact with and (suspected) exposure to COVID-19 (principal)
CPT/HCPCS: C9803; U0003; U0005

== ENCOUNTER → 2021-10-04 08:52 | Outpatient (CLI) | payer MEDICARE, SELFPAY ==
[2021-06-12 15:36] VITALS: BMI 25.7
--- NOTE | 2021-10-11 09:45 | PM.PFT.1 ---
Pulmonary Function Test Referral & Results Date Patient Seen: 10/04/21 Requesting provider: Nela Zapata Results: The spirometry demonstrates an FVC of 2.66 L which is 88% of predicted. The FEV1 was measured at 2.07 L which is 91% of predicted. The FEV1/FVC ratio was 78 which is 103% of predicted. Following the administration of bronchodilator there was a 46% improvement in FEF 25-75% Lung volumes show an SVC of 2.78 L which is 96% of predicted. The diffusing capacity was measured at 19.52 which is 76% of predicted. No hemoglobin value was provided, so no correction for potential anemia could be made, if appropriate. The maximum voluntary ventilation was normal Interpretation: This study demonstrates normal spirometry There may be a very minimal reduction diffusing capacity suggesting element of disease at the capillary alveolar level Clinical correlation suggested
== END ==
PROVIDERS: PCP Family Medicine; Referring Provider Family Medicine; Visit Provider Family Medicine
DX: J44.9 Chronic obstructive pulmonary disease, unspecified (principal)
CPT/HCPCS: 94060; 94726; 94729

== ENCOUNTER → 2021-11-06 07:52 | Outpatient (CLI) | payer MEDICARE, SELFPAY ==
[2021-06-12 15:36] VITALS: BMI 25.7
[2021-11-06 10:09] LABS: Free T3, Triiodothyronine Free 2.63 pg/mL (2.77-5.27); Free T4, Direct Thyroxine 1.29 ng/dL (0.78-2.19)
[2021-11-06 10:23] LABS: Thyroid Stimulating Hormone 1.67 uIU/mL (0.47-4.68)
[2021-11-14 11:18] LABS: Triiodothyronine T3 Reverse 20.2 ng/dL (9.2-24.1)
== END ==
PROVIDERS: PCP Family Medicine; Referring Provider Family Medicine; Visit Provider Family Medicine
DX: E06.3 Autoimmune thyroiditis (principal); E21.3 Hyperparathyroidism, unspecified
CPT/HCPCS: 36415; 84439; 84443; 84481; 84482

== ENCOUNTER → 2022-01-11 09:11 | Outpatient (CLI) | payer MEDICARE, SELFPAY ==
[2021-06-12 15:36] VITALS: BMI 25.7
[2022-01-11 10:59] LABS: Free T3, Triiodothyronine Free 3.09 pg/mL (2.77-5.27); Free T4, Direct Thyroxine 1.63 ng/dL (0.78-2.19)
[2022-01-11 11:13] LABS: Thyroid Stimulating Hormone 0.341 uIU/mL (0.47-4.68)
[2022-01-16 21:33] LABS: Triiodothyronine T3 Reverse 19.6 ng/dL (9.2-24.1)
== END ==
PROVIDERS: PCP Family Medicine; Referring Provider Family Medicine; Visit Provider Family Medicine
DX: E03.9 Hypothyroidism, unspecified (principal)
CPT/HCPCS: 36415; 84439; 84443; 84481; 84482

== ENCOUNTER → 2022-05-30 09:40 | Outpatient (CLI) | payer MEDICARE, SELFPAY ==
[2021-06-12 15:36] VITALS: BMI 25.7
--- NOTE | 2022-05-30 09:44 | DI.MG.S_ITS ---
BILATERAL DIGITAL SCREENING MAMMOGRAM 3D/2D WITH CAD: 05/30/2022 CLINICAL: Routine screening. Comparison is made to exams dated: 03/07/2021 mammogram, 01/08/2020 mammogram, and 12/02/2018 mammogram - [facility]. Both breasts are extremely dense, which lowers the sensitivity of mammography (category d />75% glandular tissue). Current study was also evaluated with a Computer Aided Detection (CAD) system. There is a slowly enlarging 1.5 cm oval equal density mass in the left breast at 1 o'clock posterior depth. This is less prominent and increased in size. No other significant masses, calcifications, or other findings are seen in either breast. IMPRESSION: INCOMPLETE: NEEDS ADDITIONAL IMAGING EVALUATION Gradual enlargement of a 1.5 cm oval equal density mass in the left breast which resembles a cyst, a solid mass, a fibroadenoma, or an intramammary node and is indeterminate. An ultrasound is recommended for further evaluation to determine if this finding is a cyst versus solid lesion. Based on the Tyrer Cuzick model (a risk assessment model) the patient's lifetime risk is 9.0% and her 10 year risk is 8.1%. According to the ACR, ACS, and NCCN guidelines, an annual breast MRI exam along with mammogram is recommended if the patient's lifetime risk is 20% or greater. This exam was interpreted at Station ID: [id number]. NOTE: For mammograms, a report in lay terms will be sent to the patient. Approximately 15% of breast malignancies will not be visualized mammographically. In the management of a palpable breast mass, a negative mammogram must not discourage biopsy of a clinically suspicious lesion. Electronically Signed By: Lucho Zazueta M.D. aty/:05/30/2022 17:24:24 letter sent: Additional Imaging Needed ACR BI-RADS Category 0: Incomplete 3340F
== END ==
PROVIDERS: PCP Pediatrics; Referring Provider Family Medicine; Visit Provider Family Medicine
DX: Z12.31 Encounter for screening mammogram for malignant neoplasm of breast (principal)
CPT/HCPCS: 77063; 77067

== ENCOUNTER → 2022-06-20 12:15 | Outpatient (CLI) | payer MEDICARE, SELFPAY ==
[2021-06-12 15:36] VITALS: BMI 25.7
--- NOTE | 2022-06-20 12:17 | DI.US.S_ITS ---
PROCEDURE: US BREAST LT LIMITED COMPARISON: None. INDICATIONS: abnormality found in mammogram FINDINGS: IMPRESSION: Dictated by: Josias Mcduffie M.D. on 06/20/2022 at 15:25 Approved by: Josias Mcduffie M.D. on 06/20/2022 at 15:32
--- NOTE | 2022-06-20 12:39 | DI.US.S_ITS ---
At the request of: JANEL MOORE Procedure: US breast LT limited ULTRASOUND OF LEFT BREAST: 06/20/2022 CLINICAL: Patient returns today to evaluate a focal asymmetry in the left breast. Comparison is made to exams dated: 05/30/2022 mammogram, 03/07/2021 mammogram, and 01/08/2020 mammogram - [facility]. Color flow and real-time ultrasound of the left breast were performed. Kincaid scale images of the real-time examination were reviewed. There is a benign 1.5 cm complicated cyst with a septated internal wall in the left breast at 1 o'clock posterior depth. This complicated cyst displays posterior acoustic enhancement. Color flow imaging demonstrates that there is no vascularity present. IMPRESSION: BENIGN There is no sonographic evidence of malignancy. The 1.5 cm complicated cyst in the left breast is benign. A 1 year screening mammogram is recommended. This exam was interpreted at Station ID: [id number]. Electronically Signed By: Josias Mcduffie M.D., jr/yaritza:06/20/2022 15:31:45
== END ==
PROVIDERS: PCP Pediatrics; Referring Provider Family Medicine; Visit Provider Family Medicine
DX: R92.8 Other abnormal and inconclusive findings on diagnostic imaging of breast (principal); N60.02 Solitary cyst of left breast
CPT/HCPCS: 76642

== ENCOUNTER → 2022-07-22 07:38 | Outpatient (CLI) | payer MEDICARE, SELFPAY ==
[2021-06-12 15:36] VITALS: BMI 25.7
[2022-07-22 08:24] LABS: Hemoglobin 13.7 g/dL (12.0-16.0); Mean Corpuscular HGB Conc 33.4 % (30-36); Mean Corpuscular Hemoglobin 29.8 PG (26-34); Mean Corpuscular Volume 89.3 fL (80-100); Platelet Count 194 X10^3/uL (150-400); Red Cell Distribution Width 14.3 % (11.6-14.8)
[2022-07-22 08:54] LABS: Alanine Aminotransferase 18 IU/L (<35); Albumin 3.8 g/dL (3.5-5.0); Albumin Globulin Ratio 1.3 (1.0-2.8); Alkaline Phosphatase 100 U/L (38-126); Aspartate Aminotransferase 23 IU/L (14-36); BUN Creatinine Ratio 17.6 (6-22); Bilirubin Total 0.5 mg/dL (0.2-1.3); Blood Urea Nitrogen 19 mg/dL (7-17); Calcium 8.6 mg/dL (8.4-10.2); Carbon Dioxide 27 mmol/L (22-32); Chloride 106 mmol/L (98-107); Cholesterol 243 mg/dL (140-199); Estimated Glomerular Filt Rate 54 mL/min (>60); Glucose 96 mg/dL (80-110); HDL Cholesterol 50 mg/dL (40-60); HEMOLYSIS < 15 (0-50); LDL Cholesterol Calculated 172 mg/dL (<100); Sodium 140 mmol/L (137-145); Total Protein 6.8 g/dL (6.3-8.2); Triglycerides 105 mg/dL (35-150)
[2022-07-22 09:00] LABS: HEMOLYSIS < 15 (0-50); Iron 98 ug/dL (37-170)
[2022-07-22 09:09] LABS: Transferrin 226 mg/dL (206-381)
[2022-07-22 09:11] LABS: Free T3, Triiodothyronine Free 3.32 pg/mL (2.77-5.27); Free T4, Direct Thyroxine 1.28 ng/dL (0.78-2.19)
[2022-07-22 09:26] LABS: Ferritin 27 ng/mL (11-264)
[2022-07-24 15:00] LABS: Percent Iron Saturation 31 % (15-50); Total Iron Binding Capacity 316 ug/dL (265-497)
== END ==
PROVIDERS: PCP Family Medicine; Referring Provider Family Medicine; Visit Provider Family Medicine
DX: E06.3 Autoimmune thyroiditis (principal); E21.3 Hyperparathyroidism, unspecified; E78.00 Pure hypercholesterolemia, unspecified; I07.1 Rheumatic tricuspid insufficiency; I27.20 Pulmonary hypertension, unspecified; R53.83 Other fatigue
CPT/HCPCS: 36415; 80053; 80061; 82728; 83540; 83550; 84439; 84443; 84481; 85027

== ENCOUNTER → 2023-03-04 07:49 | Outpatient (CLI) | payer MEDICARE, SELFPAY ==
[2021-06-12 15:36] VITALS: BMI 25.7
[2023-03-04 09:35] LABS: Cholesterol 253 mg/dL (140-199); HDL Cholesterol 53 mg/dL (40-60); LDL Cholesterol Calculated 183 mg/dL (<100); Triglycerides 87 mg/dL (35-150)
[2023-03-04 09:49] LABS: Free T3, Triiodothyronine Free 3.37 pg/mL (2.77-5.27)
[2023-03-04 10:02] LABS: Thyroid Stimulating Hormone 0.059 uIU/mL (0.47-4.68)
[2023-03-05 19:22] LABS: Anti Thyroglobulin Antibody <1.0 IU/mL (0.0-0.9); Thyroid Peroxidase Antibodies 43 IU/mL (0-34)
== END ==
PROVIDERS: PCP Family Medicine; Referring Provider Family Medicine; Visit Provider Family Medicine
DX: E06.3 Autoimmune thyroiditis (principal); E21.3 Hyperparathyroidism, unspecified; E78.5 Hyperlipidemia, unspecified; R53.83 Other fatigue
CPT/HCPCS: 36415; 80061; 84439; 84443; 84481; 86376; 86800

== ENCOUNTER 2023-08-10 07:27 | Emergency (ER) | payer MEDICARE, SELFPAY ==
[2021-06-12 15:36] VITALS: BMI 25.7
[2023-08-10] VITALS (10 sets, daily range): BP systolic 153–179; BP diastolic 74–80; PULSE 73–80; RESP 16–20; TEMP 36.3; O2SAT 94–100; BMI 25.7
--- NOTE | 2023-08-10 07:44 | ED.BACK ---
HPI - Back Pain/Injury General Chief Complaint: Back Pain/Injury Stated Complaint: L Flank Px Time Seen by Provider: 08/10/23 07:32 Source: patient, RN notes reviewed and old records reviewed Limitations: no limitations History of Present Illness HPI Narrative: 73-year-old female with history of hypothyroidism, dyslipidemia who presents with complaint of sudden onset of left flank pain at approximately 6:00 a.m. this morning. Patient states it woke her up from sleep. She has not had similar symptoms in the past. She felt sweaty, nauseated but did not vomit. She denies any syncope. No chest pain or shortness of breath. She states she would normal bowel movements yesterday. She has not had 1 today. Denies any dysuria, urgency frequency or hematuria. No vaginal bleeding or discharge. States majority of pain is in the left flank a very small amount to the anterior. She states pain is starting to decrease currently. She states she is on thyroid medication only. Has had prior hysterectomy and appendectomy. States allergies to morphine/narcotics cause hives. Patient states no tobacco use, no alcohol, no recreational drugs. Dr. Aguilar is her Primary care physician. Related Data Home Medications Medication Instructions Recorded Confirmed cyanocobalamin (vitamin B-12) 5,000 mcg sublingual QDAY ##0 09/04/16 07/27/21 5,000 mcg sublingual tablet (Vitamin B-12) vitamins A,C,M-zcea-nowzrd 4,296 1 cap PO QDAY ##0 09/04/16 07/27/21 mcg-226 mg-90 mg capsule (PreserVision AREDS) vitamin E 268 mg (400 unit) capsule 800 unit PO DAILY 12/14/18 07/27/21 boron 6 mg tablet 15 mg PO DAILY 08/29/19 07/27/21 magnesium citrate 125 mg capsule 250 mg PO DAILY 08/29/19 07/27/21 vitamin K2 40 mcg tablet See Rx Instructions PO DAILY 08/29/19 07/27/21 Previous Rx's Medication Instructions Recorded aspirin 81 mg capsule 81 mg PO DAILY #30 caps 06/07/21 atorvastatin 40 mg tablet 40 mg PO BEDTIME #30 tabs 06/07/21 liothyronine 5 mcg tablet 5 mcg PO DAILY #90 tabs 03/10/23 Levoxyl 100 mcg tablet 100 mcg PO DAILY #90 tabs 06/04/23 (levothyroxine) meloxicam 7.5 mg tablet 7.5 mg PO BID PRN pain #14 tabs 08/10/23 tamsulosin 0.4 mg capsule (Flomax) 0.4 mg PO BEDTIME #7 caps 08/10/23 Allergies Allergy/AdvReac Type Severity Reaction Status Date / Time Penicillins [PENICILLINS] Allergy Unknown UNKNOWN - Verified 07/27/21 11:45 PATIENT WAS A CHILD WHEN IT HAPPENED acetaminophen [ACETAMINOPHEN] AdvReac Severe (PERCOCET) Verified 07/27/21 11:45 VOMITING ibuprofen [IBUPROFEN] AdvReac Severe SWELLING, Verified 07/27/21 11:45 ITCHING AND DISCHARGE FROM EYES morphine [MORPHINE] AdvReac Severe HIVES Verified 07/27/21 11:45 oxycodone [OXYCODONE] AdvReac Severe (PERCOCET) Verified 07/27/21 11:45 VOMITING meperidine [MEPERIDINE] AdvReac Intermediate (DEMEROL) Verified 07/27/21 11:45 HIVES hydrocodone [HYDROCODONE] AdvReac Mild (VICODIN) Verified 07/27/21 11:45 NAUSEA Review of Systems Review of Systems ROS Unobtainable: All systems reviewed & are unremarkable except as noted in HPI and below Patient History Medical History TIA (transient ischemic attack) Pulmonary hypertension Michael's thyroiditis Thoracic radiculopathy due to intervertebral disc disorder Melanoma, choroid Migraines Osteoporosis (~2018) Osteopenia (~2018) Mumps Measles Malaria (~2007) Chicken pox Nevus (~2012) Cataracts, bilateral Fibroids Endometriosis Sinusitis Choroidal nevus of right eye (~2012) Hyperlipidemia Surgical History Anesthesia History of toe surgery (~2012) History of hysterectomy for benign disease (~1995) History of tonsillectomy (~1956) Family History Father Leukemia Mother History of heart disease Hypertension Brother History of heart disease Hyperlipidemia Hypertension Grandfather Cancer Grandmother Pneumonia Social History household members: none Smoking Status: Former smoker Tobacco: How many years used: 7 second hand exposure: Yes (in the past when everyone smoked at their desk.) alcohol intake: former substance use type: does not use Smoking Status: Former smoker alcohol intake frequency: other Substance Use Type: does not use Exam Narrative Exam Narrative: GENERAL: Alert and oriented x three, well-appearing female in mild distress. HEENT: Head normocephalic, atraumatic, EOMI, pupils reactive, face symmetric, moist mucous membranes NECK: Supple, full range of motion CARDIOVASCULAR: Regular rate and rhythm without murmurs, rubs or gallops. RESPIRATORY: Breath sounds equal bilaterally, no wheezes rales or rhonchi. ABDOMEN: Soft, nontender. Normoactive bowel sounds all 4 quadrants. No guarding or rebound, rigidity, no mass : No CVA tenderness bilaterally. EXTREMITIES: Normal range of motion, no clubbing or edema. Neurovascularly intact NEUROLOGICAL: Cranial nerves II through XII grossly intact. Moving all extremities SKIN: Warm, dry, no petechiae, no rashes or lesions. Initial Vital Signs Initial Vital Signs: Vital Signs Temperature 97.4 F L 08/10/23 07:31 Pulse Rate 78 08/10/23 07:31 Respiratory Rate 16 08/10/23 07:31 Blood Pressure 179/79 H 08/10/23 07:31 Pulse Oximetry 97 08/10/23 07:31 Oxygen Delivery Method Room Air 08/10/23 07:31 Course Orders Ordered: ED Orders 08/10/23 07:32 CBC Auto Diff [Complete Blood Count AUTO DIFF] Stat CMP [Comprehensive Metabolic Panel] Stat Lipase Stat 08/10/23 07:43 CT kidney ureter bladder (KUB) Stat 08/10/23 09:27 UA Complete [Urinalysis and Microscopic] Stat Discontinued Medications Sodium Chloride (Normal Saline 0.9%) 1,000 mls @ 1,000 mls/hr IV BOLUS PRN PRN Reason: Fluid replacement Lidocaine HCl 5 ml/ Sodium (Chloride) 55 mls @ 330 mls/hr IV NOW ONE Stop: 08/10/23 08:08 Last Infusion: 08/10/23 08:42 Dose: Infused Documented By: Admin: 08/10/23 08:27 Dose: 330 mls/hr Documented By: MANDA Vital Signs Vital signs: Vital Signs - 8 hr 08/10/23 07:31 08/10/23 07:32 08/10/23 07:32 Temperature 97.4 F L Pulse Rate 78 80 Respiratory Rate 16 20 Blood Pressure 179/79 H 179/79 H Pulse Oximetry 97 96 Oxygen Delivery Method Room Air 08/10/23 08:08 08/10/23 08:09 08/10/23 08:09 Temperature Pulse Rate 73 74 Respiratory Rate Blood Pressure 159/74 H Pulse Oximetry 95 98 Oxygen Delivery Method Room Air 08/10/23 08:30 08/10/23 08:31 08/10/23 08:31 Temperature Pulse Rate 77 74 Respiratory Rate Blood Pressure 176/75 H Pulse Oximetry 100 100 Oxygen Delivery Method 08/10/23 09:00 08/10/23 09:00 08/10/23 09:10 Temperature Pulse Rate 76 78 Respiratory Rate Blood Pressure 171/77 H Pulse Oximetry 97 96 Oxygen Delivery Method 08/10/23 09:10 08/10/23 09:30 08/10/23 09:30 Temperature Pulse Rate 79 Respiratory Rate Blood Pressure 164/79 H 161/80 H Pulse Oximetry 94 Oxygen Delivery Method 08/10/23 10:00 08/10/23 10:00 Temperature Pulse Rate 75 Respiratory Rate Blood Pressure 153/79 H Pulse Oximetry 97 Oxygen Delivery Method MDM - Back Pain/Injury Lab Data 08/10/23 07:32 08/10/23 07:32 Labs: Lab Results 08/10/23 08/10/23 Range/Units 07:32 09:27 WBC 5.8 (4.5-11.0) X10^3/uL RBC 4.48 (4.0-5.2) X10^6/uL Hgb 13.6 (12.0-16.0) g/dL Hct 40.8 (36-46) % MCV 91.1 (80-100) fL MCH 30.4 (26-34) PG MCHC 33.4 (30-36) % RDW 14.3 (11.6-14.8) % Plt Count 226 (150-400) X10^3/uL Neut % (Auto) 47.4 L (50-75) % Lymph % (Auto) 41.6 H (25-40) % Norman % (Auto) 7.1 (3-14) % Eos % (Auto) 3.4 (2-4) % Baso % (Auto) 0.5 (0-2) % Neut # (Auto) 2800 (5999-7282) /uL Lymph # (Auto) 2400 (0850-7970) /uL Norman # (Auto) 400 (0-900) /uL Eos # (Auto) 200 (0-450) /uL Baso # (Auto) 0 (0-100) /uL Sodium 138 (137-145) mmol/L Potassium 4.8 (3.4-5.1) mmol/L Chloride 106 (98-107) mmol/L Carbon Dioxide 25 (22-32) mmol/L BUN 14 (7-17) mg/dL Creatinine 0.90 (0.52-1.04) mg/dL Estimated GFR > 60 (>60) mL/min BUN/Creatinine Ratio 15.6 (6-22) Glucose 135 H (80-110) mg/dL Calcium 8.4 (8.4-10.2) mg/dL Total Bilirubin 1.5 H (0.2-1.3) mg/dL AST 49 H (14-36) IU/L ALT 24 (<35) IU/L Alkaline Phosphatase 98 (38-126) U/L Total Protein 7.1 (6.3-8.2) g/dL Albumin 4.0 (3.5-5.0) g/dL Globulin 3.1 (1.7-4.1) g/dL Albumin/Globulin Ratio 1.3 (1.0-2.8) Lipase 59 (23-300) U/L Urine Color Yellow Urine Appearance Clear Urine pH 7.0 (4.5-8.0) Ur Specific Constantia 1.015 (1.000-1.035) Urine Protein Negative (Negative) Urine Glucose (UA) Negative (Negative) g/dL Urine Ketones Negative (NEGATIVE) Urine Occult Blood 3+ H (Negative) Urine Nitrate Negative (Negative) Urine Bilirubin Negative (NEGATIVE) Urine Urobilinogen 0.2 (0.2) E.U./dL Ur Leukocyte Esterase Negative (NEGATIVE) Urine RBC 10-30/hpf H (0-5/HPF) Urine WBC 0-1/hpf (0-5/HPF) Ur Squamous Epith Cells 0-1 /hpf (0-5/HPF) Calcium Oxalate Crystal Occasional H Urine Bacteria Occasional (0-1) (None) Ur Culture Indicated? Cult not indicated Vol Urine Centrifuged 10ml (spun) Imaging Data CT scan - abdomen/pelvis: Radiologist's Impression: Close Abdomen/Pelvis CT (Signed) Wilber Rodriguez - 08/10/23 Breast Ultrasound (Signed) Josias Mcduffie - 06/20/22 Mammogram Screening (Signed) Lucho Zazueta - 05/30/22 PFT Result 10/04/21 PFT Result 10/04/21 Radiology Report (Cancelled) Amber Gamezu - 07/19/21 Myocardial Perfusion Scan Nuc Med (Signed) Paliwal,Vidhu - 07/19/21 Echocardiogram Ultrasound (Signed) Amber Gamezu - 06/06/21 Brain MRI (Signed) Kelly Foster - 06/06/21 Telemetry Strips 06/06/21 Head/Neck CTA (Signed) Elva Angela - 06/06/[address] (Signed) Elva Angela - 06/06/21 Mammogram Screening (Signed) Antonio Townsend - 03/07/21 Mammogram Screening (Signed) Josias Mcduffie - 01/08/20 Thoracic Spine MRI (Signed) Elva Angela - 01/03/20 Chest X-Ray (Signed) Mariano Fernandes - 09/21/19 Hepatobiliary Scan Nuclear Medicine (Signed) Elva Angela - 08/02/19 Echocardiogram Ultrasound (Signed) Cintia Ovalles - 07/29/19 Abdomen Ultrasound (Signed) Master Dunn - 07/21/19 Thoracic Spine MRI (Signed) Chandana Ugalde - 01/15/19 Thoracic Spine X-Ray (Signed) Cyril Chavez - 01/14/19 Ribs X-Ray (Signed) Cyril Chavez - 01/14/19 DI Result 01/05/19 Bone Densitometry 01/05/19 Mammogram Screening (Signed) Mariano Fernandes - 12/02/18 Renal Scan Nuclear Medicine (Signed) Elva Angela - 03/10/18 Abdomen Ultrasound (Signed) Master Dunn - 01/07/18 Chest/Abdomen/Pelvis CT (Addendum) Master Dunn - 01/02/18 Mammogram Screening (Signed) Stephanie Hoffman - 11/25/17 Launch?[address] [address] [address] Scan Report Signed Patient: Olga Lidia Dejesus MR#: [id number] : 1950 Acct:[id number] Age/Sex: 73 / F Date of Service: 08/10/23 Loc: ED Accession Number: [id number] Procedure: CT kidney ureter bladder (KUB) Ordering Provider: Alana Hart D.O. PROCEDURE: CT KIDNEY URETER BLADDER (KUB) INDICATIONS: L flank pain, no hx stones TECHNIQUE: Axial sections were acquired from the lung bases to the pubic symphysis. Coronal and sagittal reformats were performed. For radiation dose reduction, the following was used: automated exposure control, adjustment of mA and/or kV according to patient size. COMPARISON: None. FINDINGS: Image quality: Diagnostic. Lower Chest: No significant findings. URINARY: Right Kidney: No stones or hydronephrosis. Right Ureter: No hydroureter. Left Kidney: Moderate left-sided hydronephrosis and mild left perinephric fat stranding is seen. No gross renal stone is noted. Left Ureter: No hydroureter or ureteral stones seen Bladder: Normal wall thickness. No stones. ABDOMEN: Liver: No contour-deforming solid mass. Gallbladder: No radiopaque gallstones or wall thickening. Biliary ducts: No biliary dilation. Pancreas: No ductal dilation. Spleen: Size is within normal limits. Adrenal Glands: No adrenal nodules. Stomach and Bowel: Normal colonic caliber, without significant wall thickening. Postsurgical changes are noted in right lower quadrant abdomen with surgical clips seen. Appendix is not definitively identified. No bowel wall thickening or mesenteric fat stranding in right lower quadrant is seen. Mild sigmoid diverticulosis without evidence of acute diverticulitis. No abscess collection. Peritoneum: No abnormal intraperitoneal fluid. No free air. Ventral Wall: Small umbilical hernia is seen containing fat only. Abdominal Nodes: No enlarged retroperitoneal or mesenteric lymph nodes. Vessels: Aorta and inferior vena cava are normal in size. PELVIS: Pelvic Organs: Unremarkable. Pelvic Nodes: Unremarkable. Miscellaneous: No inguinal hernias are seen. Bones: Chronic appearing superior endplate compression deformity at T10 level is seen with up to 20% loss of T10 vertebral body height anteriorly. IMPRESSION: 1. Moderate left-sided hydronephrosis and mild left perinephric fat stranding. No obstructing stone is seen. No left-sided hydroureter. Finding may represent non radiopaque left UPJ stone versus left UPJ high-grade stenosis. Urological correlation is recommended. 2. No right-sided hydronephrosis or hydroureter. Normal appearing urinary bladder. 3. No bowel obstruction or abnormal bowel wall thickening. No mesenteric fat stranding. No abscess collection. No free fluid or free air. 4. Chronic appearing superior endplate compression at T10 level as above. Dictated by: Wilber Rodriguez M.D. on 08/10/2023 at 8:50 Approved by: Wilber Rodriguez M.D. on 08/10/2023 at 8:55 MDM Narrative Medical decision making narrative: 73-year-old female comes to the emergency department with complaint of sudden onset left flank pain nausea shows seem fairly consistent with kidney stone. Patient notes pain seems to be improving currently. Plan for labs, urine, after discussion CT KUB to fully evaluate for stone as patient has never had one before. Labs white count of 5.8, hemoglobin of 13.6, platelets of 2 2 6, lymphocytes elevated, chemistry shows sodium of 138 potassium 4.8, CO2 of 25 BUN of 14 with a creatinine of 0.9, glucose is 135 calcium 8.4, total bilirubin is 1.5, AST is 49 with an ALT of 24 alk-phos of [address] KUB shows moderate left-sided hydro and mild left perinephric fat stranding no gross renal stone is noted, no changes in the right, postsurgical changes consistent with patient's prior hysterectomy. Small umbilical hernia fat containing, chronic appearing T10 compression fracture Urine shows 3+ blood, 10-30 RBCs, negative for leukocyte esterase, negative for nitrates 0-1 white cells 0-1 squamous epithelial, occasional calcium oxalate with the occasional bacteri. Patient's labs overall are appropriate renal function is appropriate, patient has moderate left hydro, possible radiopaque stone which seems likely given patient's sudden onset of symptoms versus left UPJ high-grade stenosis. Recheck after pain medication patient is sleeping. 1003: Discussed findings with Urology, Dr. Goodman, urology: Suspect small stone may have been missed by CT versus radiopaque, patient was still quite painful after CT so likely had not passed recommends to continue with Flomax for at least a week if persistent pain to follow up with the office. Discussed with patient plan for Flomax, pain management with Tylenol, NSAIDs which patient states she can tolerate they just make her eyes water they do not make them swollen., return precautions and need for follow-up with Urology. Patient states pain has resolved. She states she did go to the bathroom and saw something small in chunky she states it did not really look like a stone or a rock when she urinated. Patient states she feels much more comfortable she has seen Dr. Goodman in the past and feels comfortable following up with him. Discussed return precautions, her findings from CT and suspected stone but not confirmed. Discharge Plan Departure Patient Disposition: Home Clinical Impression: Hydronephrosis, left, Compression fracture of T10 vertebra Activity Restrictions/Additional Instructions: Your CT imaging showed swelling of the left kidney but no obvious stone, you can sometimes have radiopaque stones or other causes. It did incidentally show a compression fracture at T10. Please follow up with Urology for recheck if your pain has not resolved in the next 24-48 hours. Call Friday morning for an appointment. Take Flomax once nightly x7 days, you can take your first dose when you get home. You may take Tylenol up to a 1000 mg every 6 hours and/or meloxicam 1 tablet every 12 hours as needed. Prescription sent to [facility] in [place]. Please return for fevers, rapidly worsening pain, persistent vomiting, inability urinate black or bloody stools or other new or concerning changes. Prescriptions: New tamsulosin [Flomax] 0.4 mg capsule 0.4 mg PO BEDTIME Qty: 7 0RF meloxicam 7.5 mg tablet 7.5 mg PO BID PRN (Reason: pain) Qty: 14 0RF No Action boron 6 mg tablet 15 mg PO DAILY vitamin K2 40 mcg tablet See Rx Instructions PO DAILY Rx Instructions: 77688 mcg PO daily; magnesium citrate 125 mg capsule 250 mg PO DAILY PreserVision AREDS 1 EACH capsule 1 cap PO QDAY Qty: 0 cyanocobalamin (vitamin B-12) [Vitamin B-12] 5,000 MCG tablet, sublingual 5,000 mcg Sublingual QDAY Qty: 0 liothyronine 5 mcg tablet 5 mcg PO DAILY Qty: 90 1RF levothyroxine [Levoxyl] 100 mcg tablet 100 mcg PO DAILY Qty: 90 1RF vitamin E 400 unit capsule 800 unit PO DAILY aspirin 81 mg capsule 81 mg PO DAILY Qty: 30 0RF atorvastatin 40 mg tablet 40 mg PO BEDTIME Qty: 30 0RF Referrals: Renae Goodman MD [Physician] - Aliza Aguilar DO [Primary Care Provider] - Stand Alone Forms: Patient Portal/API
[2023-08-10 07:54] LABS: Add Manual Diff / Slide Review NO; Basophils Absolute Auto 0 /uL (0-100); Basophils Percent Auto 0.5 % (0-2); Eosinophils Absolute Auto 200 /uL (0-450); Eosinophils Percent Auto 3.4 % (2-4); Hematocrit 40.8 % (36-46); Hemoglobin 13.6 g/dL (12.0-16.0); Lymphocytes Absolute Auto 2400 /uL (1100-4500); Lymphocytes Percent Auto 41.6 % (25-40); Mean Corpuscular HGB Conc 33.4 % (30-36); Mean Corpuscular Hemoglobin 30.4 PG (26-34); Mean Corpuscular Volume 91.1 fL (80-100); Monocytes Absolute Auto 400 /uL (0-900); Monocytes Percent Auto 7.1 % (3-14); Neutrophils Absolute Auto 2800 /uL (1500-7000); Neutrophils Percent Auto 47.4 % (50-75); Platelet Count 226 X10^3/uL (150-400); Red Blood Cell Count 4.48 X10^6/uL (4.0-5.2); Red Cell Distribution Width 14.3 % (11.6-14.8); White Blood Cell Count 5.8 X10^3/uL (4.5-11.0)
[2023-08-10 08:00] LABS: Alanine Aminotransferase 24 IU/L (<35); Albumin Globulin Ratio 1.3 (1.0-2.8); Alkaline Phosphatase 98 U/L (38-126); BUN Creatinine Ratio 15.6 (6-22); Bilirubin Total 1.5 mg/dL (0.2-1.3); Blood Urea Nitrogen 14 mg/dL (7-17); Calcium 8.4 mg/dL (8.4-10.2); Carbon Dioxide 25 mmol/L (22-32); Chloride 106 mmol/L (98-107); Estimated Glomerular Filt Rate > 60 mL/min (>60); Globulin 3.1 g/dL (1.7-4.1); Glucose 135 mg/dL (80-110); Lipase 59 U/L (23-300); Sodium 138 mmol/L (137-145); Total Protein 7.1 g/dL (6.3-8.2)
[2023-08-10 08:01] LABS: HEMOLYSIS 286 (0-50)
[2023-08-10 08:03] LABS: Aspartate Aminotransferase 49 IU/L (14-36); Potassium 4.8 mmol/L (3.4-5.1)
[2023-08-10] MEDS: LIDOCAINE 2% (PF) 5 ML in SODIUM CHLORIDE 0.9% 50 ML 330 ML IV (08:27)
[2023-08-10 09:29] LABS: Appearance Urine UA CLEAR; Bilirubin Urine UA NEGATIVE (NEGATIVE); Color Urine UA YELLOW; Glucose Urine UA NEGATIVE (Negative); Ketones Urine UA NEGATIVE (NEGATIVE); Leukocyte Esterase Urine UA NEGATIVE (NEGATIVE); Nitrite Urine UA NEGATIVE (Negative); Occult Blood Urine UA 3+ (Negative); Protein Urine UA NEGATIVE (Negative); Specific Gravity Urine UA 1.015 (1.000-1.035); Urobilinogen Urine UA 0.2 E.U./dL (0.2)
[2023-08-10 09:41] LABS: Bacteria Urine Occasional (0-1); RBC Urine 10-30/HPF (0-5/HPF); Squamous Epithelial Cell Urine 0-1 /HPF (0-5/HPF); Urine Volume 10mL (spun); WBC Urine 0-1/HPF (0-5/HPF)
[2023-08-10 09:42] LABS: Calcium Oxalate Crystals Urine Occasional; Culture Indicated Urine Cult Not Indicated
== END 2023-08-10 10:29 | disposition home or self-care (01) ==
PROVIDERS: Emergency Provider Emergency Medicine; PCP Family Medicine
DX: N13.30 Unspecified hydronephrosis (principal); S22.070A Wedge compression fracture of T9-T10 vertebra, initial encounter for closed fracture
CPT/HCPCS: 51798; 74176; 80053; 81001; 83690; 85025; 99284

== ENCOUNTER → 2024-02-11 11:57 | Outpatient (CLI) | payer MEDICARE, SELFPAY ==
[2021-06-12 15:36] VITALS: BMI 25.7
[2024-02-11 12:51] LABS: Add Manual Diff / Slide Review NO; Basophils Absolute Auto 0 /uL (0-100); Basophils Percent Auto 0.7 % (0-2); Eosinophils Absolute Auto 100 /uL (0-450); Eosinophils Percent Auto 1.3 % (2-4); Hematocrit 43.7 % (36-46); Hemoglobin 14.4 g/dL (12.0-16.0); Lymphocytes Absolute Auto 1400 /uL (1100-4500); Mean Corpuscular Hemoglobin 29.9 PG (26-34); Mean Corpuscular Volume 90.6 fL (80-100); Monocytes Absolute Auto 500 /uL (0-900); Monocytes Percent Auto 9.5 % (3-14); Neutrophils Absolute Auto 3300 /uL (1500-7000); Neutrophils Percent Auto 61.5 % (50-75); Platelet Count 220 X10^3/uL (150-400); Red Blood Cell Count 4.83 X10^6/uL (4.0-5.2); Red Cell Distribution Width 14.2 % (11.6-14.8); White Blood Cell Count 5.3 X10^3/uL (4.5-11.0)
[2024-02-11 13:00] LABS: Hemoglobin A1C% w Est Avg Glu 5.3 % (4.0-6.0)
[2024-02-11 13:11] LABS: Alanine Aminotransferase 26 IU/L (<35); Albumin 4.4 g/dL (3.5-5.0); Albumin Globulin Ratio 1.5 (1.0-2.8); Alkaline Phosphatase 110 U/L (38-126); Aspartate Aminotransferase 36 IU/L (14-36); BUN Creatinine Ratio 15.5 (6-22); Bilirubin Total 0.8 mg/dL (0.2-1.3); Blood Urea Nitrogen 18 mg/dL (7-17); Calcium 9.3 mg/dL (8.4-10.2); Carbon Dioxide 26 mmol/L (22-32); Chloride 106 mmol/L (98-107); Cholesterol 276 mg/dL (140-199); Estimated Glomerular Filt Rate 49 mL/min (>60); Globulin 2.9 g/dL (1.7-4.1); Glucose 92 mg/dL (80-110); HDL Cholesterol 65 mg/dL (40-60); HEMOLYSIS < 15 (0-50); LDL Cholesterol Calculated 191 mg/dL (<100); Potassium 4.8 mmol/L (3.4-5.1); Sodium 138 mmol/L (137-145); Total Protein 7.3 g/dL (6.3-8.2); Triglycerides 98 mg/dL (35-150)
[2024-02-11 13:40] LABS: TSH w/ Reflex to FT4 0.04 uIU/mL (0.47-4.68)
[2024-02-11 13:59] LABS: Vitamin B12 834 pg/mL (239-931)
[2024-02-11 16:54] LABS: Vitamin D 25 Hydroxy (D3) 16.7 ng/mL (30.0-100.0)
[2024-02-11 21:48] LABS: Free T4, Direct Thyroxine 1.71 ng/dL (0.78-2.19)
== END ==
PROVIDERS: PCP Family Medicine; Referring Provider Physician Assistant; Visit Provider Physician Assistant
DX: R53.83 Other fatigue (principal); E06.3 Autoimmune thyroiditis; M81.0 Age-related osteoporosis without current pathological fracture
CPT/HCPCS: 36415; 80053; 80061; 82306; 82607; 83036; 84439; 84443; 85025

== ENCOUNTER → 2024-02-17 08:53 | Outpatient (CLI) | payer MEDICARE, SELFPAY ==
[2021-06-12 15:36] VITALS: BMI 25.7
--- NOTE | 2024-02-17 08:55 | DI.US.S_ITS ---
PROCEDURE: US ABDOMEN COMPLETE INDICATIONS: LEFT UPPER/RIGHT LOWER ABDOMEN PAIN. H/O LEFT HYDRONEPHROSIS TECHNIQUE: Real-time scanning was performed of the abdominal and retroperitoneal organs, with image documentation. COMPARISON: [facility], CT, CT KIDNEY URETER BLADDER (KUB), 08/10/2023, 8:01. [facility], US, US ABDOMEN COMPLETE, 07/21/2019, 14:55. FINDINGS: Liver: Liver is normal in size and homogeneous in echotexture. Note is made of a hyperechoic nonshadowing nonvascular lesion within the right lobe of the liver measuring 13 x 11 x 15 mm, previously measuring 12 x 14 x 17 mm. Gallbladder: No findings of gallstones or sludge are seen. The gallbladder wall is not thickened, measuring 3 mm or less. No specific pericholecystic fluid is seen. The sonographic Aceves sign is negative. Biliary ducts: Intrahepatic bile ducts are non-dilated. Extrahepatic bile duct caliber measures 4 mm. Normal is 6-7 mm or less in diameter, or 10 mm or less post-cholecystectomy. Pancreas: Visualized portions of the pancreas are sonographically normal. Spleen: Spleen is normal in size and homogeneous in echotexture. Kidneys: Kidneys are normal in size and echotexture. Right kidney measures 10.1 cm long; left kidney measures 9.6 cm long. No nephrolithiasis. No solid masses. There is moderate left-sided hydronephrosis Aorta: Visualized aorta is normal in caliber at less than 3 cm. Iliacs: Proximal common iliac arteries are normal in caliber at less than 2.5 cm. IVC: Intrahepatic inferior vena cava is patent. Miscellaneous: No free abdominal fluid. Dedicated scanning is performed within the right lower quadrant and the left lower quadrant. No ultrasound abnormalities are seen. IMPRESSION: Moderate left-sided hydronephrosis is seen. Additional findings: Liver hemangioma Dictated by: Chandana Ugalde M.D. on 02/17/2024 at 9:23 Approved by: Chandana Ugalde M.D. on 02/17/2024 at 9:26
== END ==
PROVIDERS: PCP Family Medicine; Referring Provider Physician Assistant; Visit Provider Physician Assistant
DX: N13.30 Unspecified hydronephrosis (principal); D18.09 Hemangioma of other sites; R53.83 Other fatigue; R68.81 Early satiety; R10.84 Generalized abdominal pain
CPT/HCPCS: 76700

== ENCOUNTER → 2024-06-10 13:06 | Outpatient (CLI) | payer MEDICARE, SELFPAY ==
[2024-02-17 14:23] VITALS: BMI 25.7
[2024-06-10 19:35] LABS: Influenza A - CEPHEID Flu A NEGATIVE (NEGATIVE); Influenza B - CEPHEID Flu B NEGATIVE (NEGATIVE); Respiratory Syncytial Virus Negative (Negative)
[2024-06-10 19:41] LABS: COVID-19 CEPHEID 4-PLEX PCR Negative (Negative)
== END ==
PROVIDERS: PCP Family Medicine; Visit Provider Physician Assistant
DX: R05.1 Acute cough (principal); J06.9 Acute upper respiratory infection, unspecified
CPT/HCPCS: 0241U

== ENCOUNTER → 2024-06-10 13:17 | Outpatient (CLI) | payer MEDICARE, SELFPAY ==
[2024-02-17 14:23] VITALS: BMI 25.7
--- NOTE | 2024-06-10 13:22 | DI.RAD.S_ITS ---
PROCEDURE: XR CHEST 2V INDICATIONS: cough x 2 weeks TECHNIQUE: 2 views of the chest were acquired. COMPARISON: [facility], CR, XR CHEST 2V, 09/21/2019, 19:59. FINDINGS: Surgical changes and devices: None. Lungs and pleura: Lungs are clear. No pleural effusions or pneumothorax. Mediastinum: Mediastinal contours are normal. Heart size is normal. Bones and chest wall: No suspicious bony abnormalities. Soft tissues appear unremarkable. IMPRESSION: No acute cardiopulmonary abnormality is seen. Approved by: Vaughn Toussaint M.D. on 06/10/2024 at 19:59
== END ==
PROVIDERS: PCP Family Medicine; Referring Provider Physician Assistant; Visit Provider Physician Assistant
DX: J06.9 Acute upper respiratory infection, unspecified (principal); R05.1 Acute cough
CPT/HCPCS: 0241U; 71046

== ENCOUNTER → 2024-08-03 14:55 | Outpatient (CLI) | payer MEDICARE, SELFPAY ==
[2024-02-17 14:23] VITALS: BMI 25.7
[2024-08-03 15:15] LABS: Hematocrit 42.1 % (36-46); Hemoglobin 14.2 g/dL (12.0-16.0); Mean Corpuscular HGB Conc 33.7 % (30-36); Mean Corpuscular Hemoglobin 30.6 PG (26-34); Mean Corpuscular Volume 90.9 fL (80-100); Platelet Count 197 X10^3/uL (150-400); Red Blood Cell Count 4.64 X10^6/uL (4.0-5.2); White Blood Cell Count 6.2 X10^3/uL (4.5-11.0)
[2024-08-03 15:42] LABS: Alanine Aminotransferase 18 IU/L (<35); Albumin 4.2 g/dL (3.5-5.0); Albumin Globulin Ratio 1.4 (1.0-2.8); Alkaline Phosphatase 104 U/L (38-126); Aspartate Aminotransferase 29 IU/L (14-36); BUN Creatinine Ratio 18.9 (6-22); Bilirubin Total 0.4 mg/dL (0.2-1.3); Blood Urea Nitrogen 21 mg/dL (7-17); Calcium 8.8 mg/dL (8.4-10.2); Carbon Dioxide 27 mmol/L (22-32); Chloride 106 mmol/L (98-107); Estimated Glomerular Filt Rate 52 mL/min (>60); Globulin 2.9 g/dL (1.7-4.1); Glucose 104 mg/dL (80-110); HEMOLYSIS < 15 (0-50); Potassium 4.5 mmol/L (3.4-5.1); Sodium 141 mmol/L (137-145); Total Protein 7.1 g/dL (6.3-8.2)
[2024-08-03 15:57] LABS: Free T4, Direct Thyroxine 1.32 ng/dL (0.78-2.19)
[2024-08-03 16:10] LABS: Thyroid Stimulating Hormone 0.068 uIU/mL (0.47-4.68)
== END ==
LOC: LAB 14:57
PROVIDERS: PCP Family Medicine; Referring Provider Family Medicine; Visit Provider Family Medicine
DX: R42 Dizziness and giddiness (principal); E06.3 Autoimmune thyroiditis; N28.9 Disorder of kidney and ureter, unspecified; E78.5 Hyperlipidemia, unspecified
CPT/HCPCS: 36415; 80053; 84439; 84443; 84481; 85027

== ENCOUNTER → 2024-12-22 07:42 | Outpatient (CLI) | payer MEDICARE, SELFPAY ==
[2024-02-17 14:23] VITALS: BMI 25.7
[2024-12-22 08:41] LABS: Alanine Aminotransferase 18 IU/L (<35); Albumin 4.2 g/dL (3.5-5.0); Albumin Globulin Ratio 1.6 (1.0-2.8); Alkaline Phosphatase 130 U/L (38-126); Aspartate Aminotransferase 27 IU/L (14-36); BUN Creatinine Ratio 19.8 (6-22); Bilirubin Total 0.4 mg/dL (0.2-1.3); Blood Urea Nitrogen 21 mg/dL (7-17); Calcium 8.8 mg/dL (8.4-10.2); Carbon Dioxide 26 mmol/L (22-32); Chloride 103 mmol/L (98-107); Cholesterol 258 mg/dL (140-199); Estimated Glomerular Filt Rate 54 mL/min (>60); Globulin 2.6 g/dL (1.7-4.1); Glucose 97 mg/dL (70-99); HDL Cholesterol 56 mg/dL (40-60); HEMOLYSIS < 15 (0-50); LDL Cholesterol Calculated 176 mg/dL (<100); Potassium 4.3 mmol/L (3.4-5.1); Sodium 136 mmol/L (137-145); Total Protein 6.8 g/dL (6.3-8.2); Triglycerides 132 mg/dL (35-150)
[2024-12-22 08:59] LABS: Free T3, Triiodothyronine Free 3.21 pg/mL (2.77-5.27); T4 Total Thyroxine 7.59 ug/dL (5.5-11.0)
[2024-12-23 04:41] LABS: CRP, High Sensitivity 1.15 mg/L (0.00-3.00)
== END ==
PROVIDERS: PCP Family Medicine; Referring Provider Family Medicine; Visit Provider Family Medicine
DX: E06.3 Autoimmune thyroiditis (principal); N13.30 Unspecified hydronephrosis; I27.20 Pulmonary hypertension, unspecified; E21.3 Hyperparathyroidism, unspecified; R53.83 Other fatigue; M99.06 Segmental and somatic dysfunction of lower extremity; E78.00 Pure hypercholesterolemia, unspecified
CPT/HCPCS: 36415; 80053; 80061; 84436; 84481; 86140

== ENCOUNTER → 2024-12-30 14:39 | Outpatient (CLI) | payer MEDICARE, SELFPAY ==
[2024-02-17 14:23] VITALS: BMI 25.7
[2024-12-30 15:44] LABS: Vitamin D 25 Hydroxy (D3) 27.5 ng/mL (30.0-100.0)
[2024-12-30 16:00] LABS: Ferritin 32 ng/mL (11-264)
[2024-12-30 16:17] LABS: Vitamin B12 Reflex MMA if <400 791 pg/mL (239-931)
== END ==
PROVIDERS: PCP Family Medicine; Referring Provider Family Medicine; Visit Provider Family Medicine
DX: R06.83 Snoring (principal); R53.83 Other fatigue
CPT/HCPCS: 36415; 82306; 82607; 82728

== ENCOUNTER → 2025-01-04 09:18 | Outpatient (CLI) | payer MEDICARE, SELFPAY ==
[2024-02-17 14:23] VITALS: BMI 25.7
--- NOTE | 2025-01-04 09:19 | DI.ECHO.S_ITS ---
[place] +---------+ [facility] : : [address] : : [place] : : [id number] : : Phone: [phone] Echocardiogram Report + + :Name: CHICO DELONG Study Date: 01/04/2025 Height: 65 in : :[facility] ReadingLocation: Weight: 173 lb : : Gender: Female BSA: 1.9 m2 : :: 1950 Age: 74 yrs BP: 122/82 mmHg: :Reason For Study: PULMONARY HYPERTENSION : :Ordering Physician: OSCAR, : :JANEL Performed By: Josias García : :Referring: JANEL MOORE : + + Interpretation Summary The left ventricle is normal in size. Left ventricular systolic function appears normal without focal wall motion abnormalities. The ejection fraction is estimated to be 55-60%. Diastolic parameters suggest a relaxation abnormality of the left ventricle, consistent with probable normal filling pressures. The right ventricle is normal in size and function. The right ventricular systolic pressure is estimated to be at least 24 mmHg based on an estimated right atrial pressure of 3 mm Hg. The left atrial size is normal. The atrial septum is aneurysmal. There is no Doppler evidence for an interatrial shunt. There is mild mitral regurgitation. There is mild aortic regurgitation. The aortic root is normal size. Procedure: A two-dimensional transthoracic echocardiogram with color flow and Doppler was performed. The study quality was technically good. Comparison is made with the echocardiogram of 06/06/2021. The patient was in normal sinus rhythm during the exam. Left Ventricle: The left ventricle is normal in size. There is normal left ventricular wall thickness. There is no ventricular septal defect visualized. Left ventricular systolic function appears normal without focal wall motion abnormalities. The ejection fraction is estimated to be 55-60%. Diastolic parameters suggest a relaxation abnormality of the left ventricle, consistent with probable normal filling pressures. Right Ventricle: The right ventricle is normal in size and function. Atria: The left atrial size is normal. Right atrial size is normal. The atrial septum is aneurysmal. There is no Doppler evidence for an interatrial shunt. Mitral Valve: The mitral valve leaflets appear normal. There is no evidence of stenosis, fluttering, or prolapse. There is mild mitral regurgitation. Aortic Valve: The aortic valve is trileaflet. The aortic valve opens well. There is mild aortic regurgitation. Tricuspid Valve: The tricuspid valve leaflets are thin and pliable. There is mild tricuspid regurgitation. The right ventricular systolic pressure is estimated to be at least 24 mmHg based on an estimated right atrial pressure of 3 mm Hg. Pulmonic Valve: The pulmonic valve is not well seen, but is grossly normal. There is no pulmonic valvular regurgitation. Great Vessels: The aortic root is normal size. The dimensions of the ascending aorta are normal. The pulmonary artery is normal size. The IVC is of normal diameter and collapses greater than 50% with a sniff. This suggests a low right atrial pressure of 3 mm Hg. Pericardium/ Pleura There is no pericardial effusion. There is no pleural effusion. MMode/2D Measurements & Calculations LVIDd: 4.4 cm LVOT diam: 2.0 cm LVIDs: 3.1 cm Ao root diam: 3.2 cm FS: 28.5 % asc Aorta Diam: 3.3 cm EPSS: 0.98 cm Ao Arch Diam (Prox Trans): 1.7 cm IVSd: 0.92 cm LVPWd: 1.0 cm LV doan. diameter/BSA (cm/m^2): 2.3 LV sys. diameter/BSA (cm/m^2): 1.7 LA A2 area: 20.4 cm2 RA long axis: 4.4 cm LA A4 area: 18.2 cm2 RA area: 12.9 cm2 LA length (vol): 5.5 cm RA vol: 31.7 ml LA vol: 57.4 ml RA : 17.1 ml/m2 LA vol index: 30.8 ml/m2 IVC diam: 1.8 cm RVD1 (basal): 3.3 cm RVD2 (mid): 2.8 cm TAPSE: 2.4 cm Doppler Measurements & Calculations Ao V2 max: 130.0 cm/sec LVOT Max Cheikh: 105.1 cm/sec Ao V2 mean: 85.7 cm/sec LV V1 max P.4 mmHg Ao max P.8 mmHg LV V1 VTI: 26.3 cm Ao mean P.3 mmHg SHAWN(I,D): 2.9 cm2 Ao V2 VTI: 28.0 cm SHAWN(V,D): 2.5 cm2 sev ratio: 0.94 SHAWN indexed to BSA (cm^2/m^2): 1.6 MV E max cheikh: 49.0 cm/sec TR max cheikh: 229.4 cm/sec MV A max cheikh: 68.8 cm/sec TR max P.0 mmHg MV E/A: 0.71 PA V2 max: 83.6 cm/sec Med Peak E' Cheikh: 5.8 cm/sec PA V2 mean: 58.6 cm/sec E/E' med: 8.4 PA mean P.5 mmHg Lat Peak E' Cheikh: 7.8 cm/sec PA pr(Accel): 41.3 mmHg E/E' lat: 6.3 E/e' average: 7.3 MV dec time: 0.21 sec SV(LVOT): 81.2 ml Reading Physician:09:49 AM
== END ==
LOC: ECHO 09:18
PROVIDERS: PCP Family Medicine; Referring Provider Family Medicine; Visit Provider Family Medicine
DX: I08.3 Combined rheumatic disorders of mitral, aortic and tricuspid valves (principal); I27.20 Pulmonary hypertension, unspecified
CPT/HCPCS: 93306